=== PATIENT | female | born 1930 | race Caucasian/White ===

== ENCOUNTER 2017-01-22 08:37 | Inpatient (IN) | payer MEDICARE, BC ==
[2017-01-22] VITALS (19 sets, daily range): BP systolic 117–159; BP diastolic 51–104
[~2017-01-22] VITALS: Ht 152.4 cm; Wt 67.4 kg
[2017-01-22] MEDS ORDERED: PROCHLORPERAZINE 10 MG/2 ML VIAL. IV PRN (11:15)
[2017-01-22] MEDS ORDERED: VANCOMYCIN 1 GM in IV NORMAL SALINE 250ML 250 ML IV SCH (11:15)
[2017-01-22] MEDS ORDERED: HYDROCODONE/APAP 5/325MG TABLET. PO PRN (11:15)
[2017-01-22] MEDS ORDERED: CALCIUM CARBONATE 500 MG TAB.CHEW PO PRN (11:15)
[2017-01-22] MEDS ORDERED: ACETAMINOPHEN 325 MG TABLET. PO PRN (11:15)
[2017-01-22] MEDS ORDERED: BISACODYL 10 MG SUPP.RECT PR PRN (11:15)
[2017-01-22] MEDS ORDERED: LACTULOSE 20 GM/30 ML SOLUTION. PO PRN (11:15)
[2017-01-22] MEDS ORDERED: ONDANSETRON PF 4 MG/2 ML VIAL. IV PRN (11:15)
[2017-01-22] MEDS ORDERED: GUAIFENESIN DM 200MG/20MG 10 ML SYRUP. PO PRN (11:15)
[2017-01-22] MEDS ORDERED: MAGNESIUM HYDROXIDE 2,400 MG/30 ML ORAL.SUSP. PO PRN (11:15)
[2017-01-22] MEDS ORDERED: PROCHLORPERAZINE 25 MG SUPP.RECT. PR PRN (11:15)
[2017-01-22] MEDS ORDERED: IBUPROFEN 400 MG TABLET. PO PRN (11:15)
[2017-01-22] MEDS ORDERED: MAG HYDROX/ALUMINUM HYD/SIMETH 30 ML ORAL.SUSP PO PRN (11:15)
[2017-01-22] MEDS ORDERED: TRIA1CAP3 PO (11:19)
[2017-01-22] MEDS ORDERED: HYDR-2762 PO (11:19)
[2017-01-22] MEDS ORDERED: OMEP40CA5 PO (11:19)
[2017-01-22] MEDS ORDERED: SENN8.6T99 PO (11:19)
[2017-01-22] MEDS ORDERED: [UNRECOGNIZED DRUG - CODE] PO (11:19)
[2017-01-22] MEDS ORDERED: ALPR0.25 PO (11:19)
[2017-01-22] MEDS ORDERED: EZET10TA3 PO (11:19)
[2017-01-22] MEDS ORDERED: OXYC10TA32 PO (11:19)
[2017-01-22] MEDS ORDERED: CYCL10TA2 PO (11:19)
[2017-01-22] MEDS ORDERED: NIFE30TA9 PO (11:19)
[2017-01-22] MEDS ORDERED: METO50TA2 PO (11:19)
[2017-01-22] MEDS ORDERED: DOCU100T5 PO (11:19)
[2017-01-22] MEDS ORDERED: MULT-638 PO (11:19)
[2017-01-22] MEDS ORDERED: FERR-26 PO (11:19)
[2017-01-22] MEDS ORDERED: ATOR40TA59 PO (11:19)
[2017-01-22] MEDS: EZETIMIBE 10 MG TABLET PO SCH (12:00)
[2017-01-22] MEDS: MULTIVITAMIN with MINERAL TABLET. PO SCH (12:00)
[2017-01-22] MEDS: OXYCODONE ER 10 MG TAB.ER.12H. PO SCH ×2 (12:00→20:41)
[2017-01-22] MEDS: DOCUSATE SODIUM 100 MG CAPSULE PO SCH ×2 (12:00→20:39)
[2017-01-22] MEDS: NIFEDIPINE ER 30 MG TAB.ER.24H PO SCH (12:00)
[2017-01-22] MEDS: FERROUS SULFATE 325 MG TABLET PO SCH (12:00)
[2017-01-22] MEDS: ALPRAZOLAM 0.25 MG TABLET PO SCH ×2 (12:00→19:03)
[2017-01-22] MEDS: METOPROLOL TART IMMED RELEASE 50 MG TABLET PO SCH ×2 (12:00→20:40)
[2017-01-22] MEDS ORDERED: SENNOSIDES 8.6 MG TABLET PO PRN (12:00)
[2017-01-22] MEDS ORDERED: VANCOMYCIN 1.75 GM in IV NORMAL SALINE 500ML BAG 500 ML IV ONE (12:00)
[2017-01-22] MEDS ORDERED: DOCUSATE SODIUM 100 MG CAPSULE PO SCH (12:15)
[2017-01-22] MEDS: PANTOPRAZOLE 40 MG TABLET. PO SCH (12:30)
[2017-01-22] MEDS: TRIAMTERENE/HCTZ 37.5/25MG TABLET. PO SCH (12:30)
[2017-01-22] MEDS ORDERED: PIP/TAZO PER PHARMACY MC PRN (12:30)
[2017-01-22 12:39] LABS: BASO % 0 % (0-3); EOS % 1 % (0-3); HEMATOCRIT 32.1 % (36.0-47.0); HEMOGLOBIN 10.4 g/dL (12.0-15.5); LYMPH # 0.7 x10^3/uL (1.0-4.8); LYMPH % 5 % (24-48); MEAN CORPUSCULAR HEMOGLOBIN 31 pg (25-35); MEAN CORPUSCULAR HGB CONC 32 g/dL (31-37); MEAN CORPUSCULAR VOLUME 97 fL (79-100); MONO % 12 % (0-9); NEUT % 82 % (31-73); PLATELET COUNT 280 x10^3/uL (140-400); RED BLOOD COUNT 3.33 x10^6/uL (3.50-5.40); RED CELL DISTRIBUTION WIDTH 13.5 % (11.5-14.5); WHITE BLOOD COUNT 14.2 x10^3/uL (4.0-11.0)
[2017-01-22 12:40] LABS: INR 1.2 (0.8-1.1); PROTHROMBIN TIME PATIENT 14.3 SEC (11.7-14.0)
--- NOTE | 2017-01-22 12:44 | PDOC1 ---
History and Physical Date of Admission Date of Admission DATE: 01/22/17 TIME: 12:34 Identification/Chief Complaint Chief Complaint transferred from [facility] of possible empyema on CXR today Source Source: Caregiver, Chart review, Patient History of Present Illness History of Present Illness 86 y.o very pleasant female, no known lung dse, never smoker, not on home O2, transferred from [facility] of possible empyema onCXR today there. She was admitted at [place] on 01.19 for respi sxs, found to have pneumonia, atelectasis, small pleural effusions etc there, Extensive chart reviewed from [place], has CKD follows with dr. German, also echo done there showed: EF 60-65%, impaired relaxation, MIld AR, , TR, [place] hTN PA 39. VW scan showed low prob PE US legs were neg for DVT. Hiatal hernia and left renal cyst on CT - incidental Labs today 3.3at [place] NA 133, K 5.2, Bicarb 24, gap 10, crEA 1,7, gfr 28, LACTATE 0.6 lIPID PAnel ok coags ok FLu a and B neg Strep penumo antigen neg BC prelim neg growth x 3 days IN terms of sxs: she denies cough, fever, it is tHE RIGHT SIDED BACK PAIN that is bothersome to her, the site of The PNA Past Medical History Cardiovascular: HTN, Hyperlipidemia GI: GERD Heme/Onc: Other (DVT) Past Surgical History Past Surgical History: Cholecystectomy, Total knee replacement, Hysterectomy Family History Family History: Coronary Artery Disease Social History Smoke: No ALCOHOL: none Drugs: None Current Problem List Problem List Problems Medical Problems: (1) CAP (community acquired pneumonia) Status: Acute Problems: Current Medications Current Medications Current Medications Ondansetron HCl (Zofran) 4 mg PRN Q6HRS PRN IV NAUSEA/VOMITING; Start 01/22/17 at 11:15 Prochlorperazine Edisylate (Compazine) 10 mg PRN Q6HRS PRN IV NAUSEA/VOMITING; Start 01/22/17 at 11:15 Prochlorperazine (Compazine) 25 mg PRN Q12HR PRN WA NAUSEA/VOMITING; Start 01/22 at 11:15 Al Hydrox/Mg Hydrox/Simethicone (Mylanta Plus Xs) 30 ml PRN Q3HRS PRN PO HEARTBURN / GAS; Start 01/22/17 at 11:15 Calcium Carbonate/ Glycine (Tums) 500 mg PRN Q3HRS PRN PO UPSET STOMACH; Start 01/22/17 at 11:15 Morphine Sulfate 1 mg PRN Q2HR PRN IV PAIN; Start 01/22/17 at 11:15 Acetaminophen/ Hydrocodone Bitart (Lortab 5/325) 1 tab PRN Q4HRS PRN PO MILD PAIN; Start 01/22/17 at 11:15 Acetaminophen (Tylenol) 650 mg PRN Q6HRS PRN PO MILD PAIN / TEMP; Start at 11:15 Ibuprofen (Motrin) 400 mg PRN Q6HRS PRN PO MILD PAIN; Start 01/22/17 at 11:15 Docusate Sodium (Colace) 100 mg BID PO ; Start 01/22/17 at 12:00 Magnesium Hydroxide (Milk Of Magnesia) 2,400 mg PRN Q12HR PRN PO CONSTIPATION; Start 01/22/17 at 11:15 Lactulose 20 gm PRN Q12HR PRN PO CONSTIPATION; Start 01/22/17 at 11:15 Bisacodyl (Dulcolax Supp) 10 mg PRN DAILY PRN [place] CONSTIPATION; Start 01/22/17 at 11:15 Enoxaparin Sodium 40 mg 40 mg Q24H SQ ; Start 01/22/17 at 16:00 Vancomycin HCl 1 gm/Sodium Chloride 250 ml @ 250 mls/hr Q24H IV ; Start at 11:15; Status UNV Piperacillin Sod/ Tazobactam Sod/ Sodium Chloride (Zosyn/Iv Sodium Chloride 0.9 % 50ml) 50 ml @ 100 mls/hr Q6HRS IV ; Start 01/22/17 at 12:00 Guaifenesin (Robitussin Dm) 10 ml PRN Q6HRS PRN PO COUGH; Start 01/22/17 at 11: 15 Vancomycin HCl 1 each 1 each PRN DAILY PRN MC SEE COMMENTS; Start 01/22/17 at 11 :30 Vancomycin HCl/ Sodium Chloride (Iv Sodium Chloride 0.9% 500ml Bag) 500 ml @ 250 mls/hr 1X ONCE IV ; Start 01/22/17 at 12:00; Stop 01/22/17 at 13:59; Status Cancel Alprazolam (Xanax) 0.25 mg BID PO ; Start 01/22/17 at 12:00 Atorvastatin Calcium (Lipitor) 40 mg HS PO ; Start 01/22/17 at 21:00 Cyclobenzaprine HCl (Flexeril) 10 mg TID PO ; Start 01/22/17 at 14:00 EZETIMIBE (Zetia) 10 mg DAILY PO ; Start 01/22/17 at 12:00 Ferrous Sulfate (Feosol) 325 mg DAILYWBKFT PO ; Start 01/22/17 at 12:00 Acetaminophen/ Hydrocodone Bitart (Lortab 7.5/325) 1 tab PRN Q4HRS PRN PO PAIN ; Start 01/22/17 at 12:00 Metoprolol Tartrate (Lopressor) 50 mg BID PO ; Start 01/22/17 at 12:00 Multivitamins/ Calcium (Thera M Plus) 1 tab DAILY PO ; Start 01/22/17 at 12:00 Oxycodone HCl (Oxycontin) 10 mg BID PO ; Start 01/22/17 at 12:00 Sennosides (Senna) 8.6 mg PRN DAILY PRN PO CONSTIPATION; Start 01/22/17 at 12:00 Docusate Sodium (Colace) 100 mg DAILY PO ; Start 01/22/17 at 12:15; Status Cancel Losartan Potassium (Cozaar) 50 mg DAILY PO ; Start 01/23/17 at 09:00 Nifedipine (Procardia Xl) 30 mg DAILY PO ; Start 01/22/17 at 12:00 Pantoprazole Sodium (Protonix) 40 mg DAILYAC PO ; Start 01/22/17 at 12:30 Triamterene/HCTZ (Maxzide 37.5/ 25mg) 1 tab DAILY PO ; Start 01/22/17 at 12:30 Piperacillin Sod/ Tazobactam Sod (Zosyn Per Pharmacy) 1 each PRN DAILY PRN MC SEE COMMENTS; Start 01/22/17 at 12:30; Stop 01/22/17 at 12:30; Status DC Active Scripts Active Reported Triamterene-Hctz 37.5-25 Mg Cp (Triamterene/Hydrochlorothiazid) 1 Each Capsule 1 Cap PO DAILY Senokot (Sennosides) 8.6 Mg Tablet 8.6 Mg PO PRN DAILY PRN Oxycontin (Oxycodone HCl) 10 Mg Tab.er.12h 10 Mg PO BID Omeprazole 40 Mg Capsule.dr 40 Mg PO DAILY Nifedipine Er (Nifedipine) 30 Mg Tablet.er 30 Mg PO DAILY Thera M Plus Tablet (Multivits,Ca,Minerals/Iron/FA) 1 Each Tablet 1 Each PO DAILY Metoprolol Tartrate 50 Mg Tablet 50 Mg PO BID Hydrocodone-Apap 7.5-325 (Hydrocodone Bit/Acetaminophen) 1 Each Tablet 1 Tab PO PRN Q4HRS PRN Ferrous Sulfate 325 Mg Tablet 1 Tab PO DAILY Zetia (Ezetimibe) 10 Mg Tablet 10 Mg PO DAILY Eprosartan Mesylate 600 Mg Tablet 600 Mg PO DAILY Docusate Sodium 100 Mg Tablet 100 Mg PO DAILY Cyclobenzaprine Hcl 10 Mg Tablet 10 Mg PO TID Atorvastatin Calcium 40 Mg Tablet 40 Mg PO HS Xanax (Alprazolam) 0.25 Mg Tablet 1 Tab PO BID Allergies Allergies: Coded Allergies: Tetracyclines (Verified Allergy, Intermediate, Unknown, 01/22/17) ROS General: YES: Fatigue PSYCHOLOGICAL ROS: No: Anxiety, Behavioral Disorder, Concentration difficultie , Decreased libido, Depression, Disorientation, Hallucinations, Hostility, Irritablity, Memory difficulties, Mood Swings, Obsessive thoughts, Other, Physical abuse, Sexual abuse, Sleep disturbances, Suicidal ideation Eyes: No Blurry vision, No Decreased vision, No Double vision, No Dry eyes, No Excessive tearing, No Eye Pain, No Itchy Eyes, No Loss of vision, No Other, No Photophobia, No Scotomata, No Uses contacts, No Uses glasses HEENT: No: Epistaxis, Heacaches, Hearing change, Nasal congestion, Nasal discharge, Oral lesions, Other, Sinus pain, Sneezing, Snoring, Sore Throat, Tinnitus, Vertigo, Visual Changes, Vocal changes ALLERGY AND IMMUNOLOGY: No: Hives, Insect Bite Sensitivity, Itchy/Watery Eyes, Nasal Congestion, Other, Post Nasal Drip, Seasonal Allergies Hematological and Lymphatic: No: Bleeding Problems, Blood Clots, Blood Transfusions, Brusing, Night Sweats, Other, Pallor, Swollen Lymph Nodes ENDOCRINE: No: Breast Changes, Galactorrhea, Hair Pattern Changes, Hot Flashes , Malaise/lethargy, Mood Swings, Other, Palpitations, Polydipsia/polyuria, Skin Changes, Temperature Intolerance, Unexpected Weight Changes Breast: No New/Changing Breast Lumps, No Nipple changes, No Nipple discharge, No Other Respiratory: YES: Cough Cardiovascular: yes Other (back pain, R side), No Chest Pain, No Edema, No Lt Headedness, No Orthopnea, No Palpitations, No Paroxysmal Noc. Dyspnea Gastrointestinal: No Abdominal Pain, No Constipation, No Diarrhea, No Hematochezia, No Melena, No Nausea, No Other, No Vomiting Genitourinary: No , No , No , No , No , No , No , No Discharge, No Dysuria, No Flank Pain, No Frequency, No Hematuria, No Incontinence, No Other, No Pain, No Retention, No Urgency Musculoskeletal: Yes Other (back pain, R side) Neurological: No Behavorial Changes, No Bowel/Bladder ControlChng, No Confusion , No Dizziness, No Gait Disturbance, No Headaches, No Impaired Coord/balance, No Memory Loss, No Numbness/Tingling, No Other, No Seizures, No Speech Problems , No Tremors, No Visual Changes, No Weakness Skin: No Acne, No Dry Skin, No Eczema, No Hair Changes, No Lumps, No Mole Changes, No Mottling, No Nail Changes, No Other, No Pruritus, No Rash, No Skin Lesion Changes Physical Exam General: Alert HEENT: Atraumatic, PERRLA Lungs: Normal air movement, Other (dec BS R side) Cardiovascular: S1, S2 Breasts: Normal Abdomen: Normal bowel sounds, Soft, No tenderness, No hepatosplenomegaly, No masses Rectal Exam: not examined PELVIC: Nml ext genitalia Extremities: No clubbing, No cyanosis, No edema, Normal pulses, No tenderness/ swelling Skin: No rashes, No breakdown, No significant lesion Neuro: Normal gait, Normal speech, Strength at 5/5 X4 ext, Normal tone, Sensation intact, Cranial nerves 3-12 NL, Reflexes 2+ Psych/Mental Status: Mental status NL, Mood NL Vitals Vitals Vital Signs Date Time Temp Pulse Resp B/P Pulse Ox O2 Delivery O2 Flow Rate FiO2 01/22/17 10:59 Nasal Cannula 2.0 01/22/17 10:45 96.3 81 18 128/51 94 96.3 VTE Prophylaxis Ordered VTE Prophylaxis Devices: Yes VTE Pharmacological Prophylaxi: Yes Assessment/Plan Assessment/Plan 1. RUL PNA< with possible mention of empyema, on 01/22/ xray 2. Atelectasis, trace pleural effusions bilateral 3. 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 YOAN on CKD6. 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 GERD, hx DVT - venous doppler are neg, vq low prob PE 7. Dyslipidemia 8. HTN - stable 9. Incidental left renal cyst 10,. Hiatal hernia 11.Coronary calcifications 12. 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
[2017-01-22 12:48] LABS: ALBUMIN 2.2 g/dL (3.4-5.0); CREATININE 1.7 mg/dL (0.6-1.0); GFR 28.4; MAGNESIUM 1.6 mg/dL (1.8-2.4); PHOSPHORUS 3.7 mg/dL (2.6-4.7); POTASSIUM 5.6 mmol/L (3.5-5.1)
[2017-01-22] MEDS: PIPERACILLIN/TAZOBACTAM 2.25 GM in IV NORMAL SALINE 50ML 50 ML IV SCH ×3 (13:06→23:57)
[2017-01-22] MEDS: HEPARIN PF for SUB-Q USE 5,000 UNIT/0.5 ML VIAL. SQ SCH ×2 (14:00→20:50)
[2017-01-22] MEDS: CYCLOBENZAPRINE 10 MG TABLET. PO SCH ×2 (14:00→20:40)
[2017-01-22] MEDS: MORPHINE SULFATE 2 MG/ML DISP.SYRIN. IV PRN ×2 (14:39→18:38)
[2017-01-22] MEDS: VANCOMYCIN PER PHARMACY MC PRN (14:47)
--- NOTE | 2017-01-22 15:54 | PDOC ---
PULMONARY PROGRESS NOTES Vitals Vital Signs Date Time Temp Pulse Resp B/P Pulse Ox O2 Delivery O2 Flow Rate FiO2 01/22/17 15:25 Nasal Cannula 2.0 01/22/17 14:42 96.8 87 18 134/59 95 96.8 Cardiovascular: S1, S2 Labs Laboratory Tests Test 01/22/17 12:05 White Blood Count 14.2x10^3/uL (4.0-11.0) Red Blood Count 3.33x10^6/uL (3.50-5.40) Hemoglobin 10.4g/dL (12.0-15.5) Hematocrit 32.1% (36.0-47.0) Mean Corpuscular Volume 97fL (79-100) Mean Corpuscular Hemoglobin 31pg (25-35) Mean Corpuscular Hemoglobin Concent 32g/dL (31-37) Red Cell Distribution Width 13.5% (11.5-14.5) Platelet Count 280x10^3/uL (140-400) Neutrophils (%) (Auto) 82% (31-73) Lymphocytes (%) (Auto) 5% (24-48) Monocytes (%) (Auto) 12% (0-9) Eosinophils (%) (Auto) 1% (0-3) Basophils (%) (Auto) 0% (0-3) Neutrophils # (Auto) 11.7x10^3uL (1.8-7.7) Lymphocytes # (Auto) 0.7x10^3/uL (1.0-4.8) Monocytes # (Auto) 1.7x10^3/uL (0.0-1.1) Eosinophils # (Auto) 0.1x10^3/uL (0.0-0.7) Basophils # (Auto) 0.0x10^3/uL (0.0-0.2) Prothrombin Time 14.3SEC (11.7-14.0) Prothromb Time International Ratio 1.2 (0.8-1.1) Sodium Level 133mmol/L (136-145) Potassium Level 5.6mmol/L (3.5-5.1) Chloride Level 97mmol/L (98-107) Carbon Dioxide Level 26mmol/L (21-32) Anion Gap 10 (6-14) Blood Urea Nitrogen 25mg/dL (7-20) Creatinine 1.7mg/dL (0.6-1.0) Estimated GFR (Cockcroft-Gault) 28.4 Glucose Level 119mg/dL (70-99) Calcium Level 9.0mg/dL (8.5-10.1) Phosphorus Level 3.7mg/dL (2.6-4.7) Magnesium Level 1.6mg/dL (1.8-2.4) Albumin 2.2g/dL (3.4-5.0) Laboratory Tests Test 01/22/17 12:05 White Blood Count 14.2x10^3/uL (4.0-11.0) Red Blood Count 3.33x10^6/uL (3.50-5.40) Hemoglobin 10.4g/dL (12.0-15.5) Hematocrit 32.1% (36.0-47.0) Mean Corpuscular Volume 97fL (79-100) Mean Corpuscular Hemoglobin 31pg (25-35) Mean Corpuscular Hemoglobin Concent 32g/dL (31-37) Red Cell Distribution Width 13.5% (11.5-14.5) Platelet Count 280x10^3/uL (140-400) Neutrophils (%) (Auto) 82% (31-73) Lymphocytes (%) (Auto) 5% (24-48) Monocytes (%) (Auto) 12% (0-9) Eosinophils (%) (Auto) 1% (0-3) Basophils (%) (Auto) 0% (0-3) Neutrophils # (Auto) 11.7x10^3uL (1.8-7.7) Lymphocytes # (Auto) 0.7x10^3/uL (1.0-4.8) Monocytes # (Auto) 1.7x10^3/uL (0.0-1.1) Eosinophils # (Auto) 0.1x10^3/uL (0.0-0.7) Basophils # (Auto) 0.0x10^3/uL (0.0-0.2) Prothrombin Time 14.3SEC (11.7-14.0) Prothromb Time International Ratio 1.2 (0.8-1.1) Sodium Level 133mmol/L (136-145) Potassium Level 5.6mmol/L (3.5-5.1) Chloride Level 97mmol/L (98-107) Carbon Dioxide Level 26mmol/L (21-32) Anion Gap 10 (6-14) Blood Urea Nitrogen 25mg/dL (7-20) Creatinine 1.7mg/dL (0.6-1.0) Estimated GFR (Cockcroft-Gault) 28.4 Glucose Level 119mg/dL (70-99) Calcium Level 9.0mg/dL (8.5-10.1) Phosphorus Level 3.7mg/dL (2.6-4.7) Magnesium Level 1.6mg/dL (1.8-2.4) Albumin 2.2g/dL (3.4-5.0) Medications Active Scripts Medications Dose Route/Sig Days Date Category Triamterene-Hctz 37.5-25 Mg Cp (Triamterene/Hydrochlorothiazid) 1 Each Capsule 1 Cap PO DAILY 01/22/17 Reported Senokot (Sennosides) 8.6 Mg Tablet 8.6 Mg PO PRN DAILY PRN 01/22/17 Reported Oxycontin (Oxycodone HCl) 10 Mg Tab.er.12h 10 Mg PO BID 01/22/17 Reported Omeprazole 40 Mg Capsule.dr 40 Mg PO DAILY 01/22/17 Reported Nifedipine Er (Nifedipine) 30 Mg Tablet.er 30 Mg PO DAILY 01/22/17 Reported Thera M Plus Tablet (Multivits,Ca,Minerals/Iron/FA) 1 Each Tablet 1 Each PO DAILY 01/22/17 Reported Metoprolol Tartrate 50 Mg Tablet 50 Mg PO BID 01/22/17 Reported Hydrocodone-Apap 7.5-325 (Hydrocodone Bit/Acetaminophen) 1 Each Tablet 1 Tab PO PRN Q4HRS PRN 01/22/17 Reported Ferrous Sulfate 325 Mg Tablet 1 Tab PO DAILY 01/22/17 Reported Zetia (Ezetimibe) 10 Mg Tablet 10 Mg PO DAILY 01/22/17 Reported Eprosartan Mesylate 600 Mg Tablet 600 Mg PO DAILY 01/22/17 Reported Docusate Sodium 100 Mg Tablet 100 Mg PO DAILY 01/22/17 Reported Cyclobenzaprine Hcl 10 Mg Tablet 10 Mg PO TID 01/22/17 Reported Atorvastatin Calcium 40 Mg Tablet 40 Mg PO HS 01/22/17 Reported Xanax (Alprazolam) 0.25 Mg Tablet 1 Tab PO BID 01/22/17 Reported Impression . PNEUMONIA WITH POSSIBLE EMPYEMA WILL PROCEED WITH CHEST TUBE DRAINAGE THANKS CHEMA QUIROZ MD Jan 22, 2017 15:54
[2017-01-22] MEDS ORDERED: ENOXAPARIN 40 MG/0.4 ML DISP.SYRIN. SQ SCH (16:00)
[2017-01-22] MEDS ORDERED: LIDOCAINE 1% / SOD BICARB 8.4% 20 ML VIAL. IJ ONE ×2 (16:37→18:00)
[2017-01-22] MEDS ORDERED: FENTANYL PF 100 MCG/2 ML VIAL. ONE (16:37)
[2017-01-22] MEDS ORDERED: MIDAZOLAM HCL 2 MG/2 ML VIAL. ONE (16:38)
--- NOTE | 2017-01-22 17:23 | PDOC ---
MODERATE SEDATION ASSESSMENT RISKS/ALTERNATIVES Risks/Alternatives Risks and alternatives of this type of sedation and procedure discussed with: RISK/ALTERNATIVES: Patient H & P ON CHART H & P H & P on chart and reviewed for co-morbid conditions and appropriate labs. H&P ON CHART: Yes STATUS PREG STATUS ASSESSED: Yes MEDS/ALLERGIES REVIEWED Meds/Allergies Reviewed Medications and Allergies including time and route of recently administered narcotics and sedatives. MEDS/ALLERGIES REVIEWED: Yes ASA RATING ASA RATING: II AIRWAY ASSESSMENT Airway Assessment Airway patency, oral function limitations, presence of caps, crowns, dentures, partials, and ability to extend neck assessed. AIRWAY ASSESSMENT: Yes MALLAMPATI SCORE MALLAMPATI SCORE: II PRE-SEDATION ASSESSMENT PRE-SEDATION ASSESSMENT: Yes FRANKI RILEY MD Jan 22, 2017 17:23
--- NOTE | 2017-01-22 17:24 | PDOC ---
BRIEF OPERATIVE NOTE Pre-Op Diagnosis Empyema Post-Op Diagnosis same Procedure Performed CT Chest tube and tpa fibrinolysis Surgeon Susana Anesthesia Type: Conscious Sedation Specimens Obtained 20cc pink serous fluid Findings 14F chest tube Complications No immediate FRANKI RILEY MD Jan 22, 2017 17:24
[2017-01-22] MEDS ORDERED: NORMAL SALINE IV ONE (18:00)
[2017-01-22] MEDS ORDERED: ALTEPLASE IV ONE (18:00)
[2017-01-22] MEDS ORDERED: FENTANYL PF 100 MCG/2 ML VIAL. IV ONE (18:00)
[2017-01-22] MEDS ORDERED: MIDAZOLAM HCL 2 MG/2 ML VIAL. IV ONE (18:00)
[2017-01-22] MEDS: HYDROCODONE/APAP 7.5/325MG TABLET. PO PRN (18:38)
--- NOTE | 2017-01-22 19:53 | EKG ---
[facility] [address] [place] [address] Test Date: 2017-01-22 Test Time: 19:47:44 Pat Name: HIRAL PATRICK Department: Room: [facility] Gender: F Sack Sorter: THAI : 1930 Requested By: SIRIA LI Order Number: [id number] Reading MD: Rodrigo Patterson Measurements Intervals [place] Rate: 150 P: NM: QRS: 31 QRSD: 98 T: -4 QT: 290 QTc: 460 Interpretive Statements ATRIAL FIBRILLATION. INCOMPLETE RIGHT BUNDLE BRANCH BLOCK NONSPECIFIC ST-T WAVE CHANGES. RI6.01 Electronically Signed On 01-25-2017 14:01:01 ASTRONOMY DEPARTMENT CHAIR by Rodrigo Patterson
[2017-01-22] MEDS ORDERED: DILTIAZEM 125 MG in IV DEXTROSE 5% 100 ML IV PRN (20:15)
[2017-01-22] MEDS ORDERED: MORPHINE SULFATE 2 MG/ML DISP.SYRIN. IV ONE (20:15)
[2017-01-22] MEDS ORDERED: DILTIAZEM IV PUSH 25 MG/5 ML VIAL. IVP ONE (20:15)
[2017-01-22] MEDS: ATORVASTATIN CALCIUM 40 MG TABLET. PO SCH (20:39)
[2017-01-23 03:00] VITALS: BP 124/62
[2017-01-23] MEDS: PIPERACILLIN/TAZOBACTAM 2.25 GM in IV NORMAL SALINE 50ML 50 ML IV SCH ×3 (06:12→17:20)
[2017-01-23] MEDS: HEPARIN PF for SUB-Q USE 5,000 UNIT/0.5 ML VIAL. SQ SCH ×3 (06:15→22:09)
[2017-01-23 07:00] VITALS: BP 124/62
[2017-01-23] MEDS: ALPRAZOLAM 0.25 MG TABLET PO SCH ×2 (09:00→21:26)
[2017-01-23] MEDS: TRIAMTERENE/HCTZ 37.5/25MG TABLET. PO SCH (09:03)
[2017-01-23] MEDS: DOCUSATE SODIUM 100 MG CAPSULE PO SCH ×2 (09:03→21:26)
[2017-01-23] MEDS: PANTOPRAZOLE 40 MG TABLET. PO SCH (09:04)
[2017-01-23] MEDS: LOSARTAN POTASSIUM 50 MG TABLET. PO SCH (09:04)
[2017-01-23] MEDS: FERROUS SULFATE 325 MG TABLET PO SCH (09:04)
[2017-01-23] MEDS: METOPROLOL TART IMMED RELEASE 50 MG TABLET PO SCH ×2 (09:04→21:26)
[2017-01-23] MEDS: CYCLOBENZAPRINE 10 MG TABLET. PO SCH ×3 (09:05→21:26)
[2017-01-23] MEDS: EZETIMIBE 10 MG TABLET PO SCH (09:05)
[2017-01-23] MEDS: OXYCODONE ER 10 MG TAB.ER.12H. PO SCH ×2 (09:05→21:27)
[2017-01-23] MEDS: NIFEDIPINE ER 30 MG TAB.ER.24H PO SCH (09:05)
[2017-01-23] MEDS: MULTIVITAMIN with MINERAL TABLET. PO SCH (09:05)
[2017-01-23] MEDS: MORPHINE SULFATE 2 MG/ML DISP.SYRIN. IV PRN ×2 (09:41→17:23)
--- NOTE | 2017-01-23 10:14 | PDOC2 ---
CARDIAC CONSULT DATE OF CONSULT Date of Consult DATE: 01/23/17 TIME: 09:45 REASON FOR CONSULT Reason for Consult: atrial fibrillation HISTORY OF PRESENT ILLNESS HISTORY OF PRESENT ILLNESS HISTORY OF PRESENT ILLNESS: The patient is a pleasant 86-year-old female with no known history of coronary artery disease who was initially admitted to [facility] with complaints of right-sided flank pain and back pain, which was worse with inspiration. She complained of associated dyspnea. She also complained of a substernal chest discomfort that she described as a pleuritic type pain. [facility] was [facility] and found to have normal LV function by echo with normal wall motion. She was treated for pneumonia but ultimately transferred to [facility] for pulmonary evaluation for possible empyema. She denies any previous history of myocardial infarction, congestive heart failure, or stroke. She has an inferior vena cava filter due to previous deep venous thrombosis. VQ was low probability for PE. She denies any congestive symptoms but does complain of intermittent lower extremity edema. She denies any palpitations, lightheadedness or syncope. She has a history of some recent falls at home including 2 in the past couple of months. Both were apparently mechanical falls but each time she has had to call for help to get back up. Yesterday she developed atrial fibrillation with RVR up to 180s so consult was called. She is currently in sinus rhythm. PAST MEDICAL HISTORY Past Medical History PAST MEDICAL HISTORY: 1. Essential hypertension. 2. History of deep venous thrombosis. 3. Inferior vena cava filter. 4. Hypercholesterolemia. 5. Gastroesophageal reflux disease. PAST SURGICAL HISTORY Past Surgical History PAST SURGICAL HISTORY: Status post inferior vena cava filter. FAMILY HISTORY Family History FAMILY HISTORY: She denies any family history of premature coronary artery disease. SOCIAL HISTORY Social History SOCIAL HISTORY: The patient lives at home in [place] in her own home. She lives alone, but has family and many friends nearby. She is a lifelong nonsmoker. She does not drink alcohol on a regular basis. CURRENT MEDICATIONS CURRENT MEDICATIONS Current Medications Medications (Trade) Dose Ordered Sig/Kavitha Route PRN Reason Start Time Stop Time Status Last Admin Dose Admin Morphine Sulfate 1 mg PRN Q2HR PRN IV PAIN 01/22/17 11:15 01/23/17 09:41 Docusate Sodium 100 mg 100 mg BID PO 01/22/17 12:00 01/23/17 09:03 Piperacillin Sod/ Tazobactam Sod/ Sodium Chloride (Zosyn/Iv Sodium Chloride 0.9% 50ml) 50 ml @ 100 mls/hr Q6HRS IV 01/22/17 12:00 01/23/17 06:12 Vancomycin HCl (Vanco Per Pharmacy) 1 each PRN DAILY PRN MC SEE COMMENTS 01/22/17 11:30 01/22/17 14:47 Alprazolam (Xanax) 0.25 mg BID PO 01/22/17 12:00 01/22/17 19:03 Atorvastatin Calcium (Lipitor) 40 mg HS PO 01/22/17 21:00 01/22/17 20:39 Cyclobenzaprine HCl (Flexeril) 10 mg TID PO 01/22/17 14:00 01/23/17 09:05 EZETIMIBE (Zetia) 10 mg DAILY PO 01/22/17 12:00 01/23/17 09:05 Ferrous Sulfate (Feosol) 325 mg DAILYWBKFT PO 01/22/17 12:00 01/23/17 09:04 Acetaminophen/ Hydrocodone Bitart (Lortab 7.5/325) 1 tab PRN Q4HRS PRN PO SEVERE PAIN 01/22/17 12:00 01/22/17 18:38 Metoprolol Tartrate (Lopressor) 50 mg BID PO 01/22/17 12:00 01/23/17 09:04 Multivitamins/ Calcium (Thera M Plus) 1 tab DAILY PO 01/22/17 12:00 01/23/17 09:05 Oxycodone HCl (Oxycontin) 10 mg BID PO 01/22/17 12:00 01/23/17 09:05 Losartan Potassium (Cozaar) 50 mg DAILY PO 01/23/17 09:00 01/23/17 09:04 Nifedipine (Procardia Xl) 30 mg DAILY PO 01/22/17 12:00 01/23/17 09:05 Pantoprazole Sodium (Protonix) 40 mg DAILYAC PO 01/22/17 12:30 01/23/17 09:04 Triamterene/HCTZ (Maxzide 37.5/ 25mg) 1 tab DAILY PO 01/22/17 12:30 01/23/17 09:03 Heparin Sodium (Porcine) 5000 unit 5,000 unit Q8HRS SQ 01/22/17 14:00 01/23/17 06:15 Alteplase, Recombinant/ Sodium Chloride (Cathflo/Iv Sodium Chloride 0.9% 50ml) 50 ml @ 30 mls/hr 1X ONCE IV 01/22/17 18:00 01/22/17 19:39 DC 01/22/17 18:01 Lidocaine/Sodium Bicarbonate (Buffered Lidocaine 1%) 3 ml 1X ONCE IJ 01/22/17 18:00 01/22/17 18:01 DC 01/22/17 17:54 Midazolam HCl (Versed) 0.5 mg 1X ONCE IV 01/22/17 18:00 01/22/17 18:01 DC 01/22/17 17:54 Fentanyl Citrate (Fentanyl 2ml Vial) 100 mcg 1X ONCE IV 01/22/17 18:00 01/22/17 18:01 DC 01/22/17 17:55 ALLERGIES ALLERGIES: Coded Allergies: Tetracyclines (Verified Allergy, Intermediate, 01/23/17) ROS Review of System as per HPI or negative PHYSICAL EXAM General: Alert, Oriented X3, Cooperative, mild distress Lungs: Other (bibasilar crackles, right pleural CT in place) Heart: Regular rate, Normal S1, Normal S2, Other (no gallops) Abdomen: Normal bowel sounds, Soft Extremities: No cyanosis, Normal pulses, Other (mild bilateral lower extremity edema) Neuro: Normal speech Psych/Mental Status: Mental status NL, Mood NL VITALS VITALS Vital Signs Date Time Temp Pulse Resp B/P Pulse Ox O2 Delivery O2 Flow Rate FiO2 01/23/17 09:41 96 Nasal Cannula 2.0 01/23/17 09:05 94 124/62 01/23/17 07:00 97.8 20 97.8 LABS Lab: Laboratory Tests Test 01/22/17 12:05 01/22/17 17:15 White Blood Count 14.2x10^3/uL (4.0-11.0) Red Blood Count 3.33x10^6/uL (3.50-5.40) Hemoglobin 10.4g/dL (12.0-15.5) Hematocrit 32.1% (36.0-47.0) Mean Corpuscular Volume 97fL (79-100) Mean Corpuscular Hemoglobin 31pg (25-35) Mean Corpuscular Hemoglobin Concent 32g/dL (31-37) Red Cell Distribution Width 13.5% (11.5-14.5) Platelet Count 280x10^3/uL (140-400) Neutrophils (%) (Auto) 82% (31-73) Lymphocytes (%) (Auto) 5% (24-48) Monocytes (%) (Auto) 12% (0-9) Eosinophils (%) (Auto) 1% (0-3) Basophils (%) (Auto) 0% (0-3) Neutrophils # (Auto) 11.7x10^3uL (1.8-7.7) Lymphocytes # (Auto) 0.7x10^3/uL (1.0-4.8) Monocytes # (Auto) 1.7x10^3/uL (0.0-1.1) Eosinophils # (Auto) 0.1x10^3/uL (0.0-0.7) Basophils # (Auto) 0.0x10^3/uL (0.0-0.2) Prothrombin Time 14.3SEC (11.7-14.0) Prothromb Time International Ratio 1.2 (0.8-1.1) Sodium Level 133mmol/L (136-145) Potassium Level 5.6mmol/L (3.5-5.1) Chloride Level 97mmol/L (98-107) Carbon Dioxide Level 26mmol/L (21-32) Anion Gap 10 (6-14) Blood Urea Nitrogen 25mg/dL (7-20) Creatinine 1.7mg/dL (0.6-1.0) Estimated GFR (Cockcroft-Gault) 28.4 Glucose Level 119mg/dL (70-99) Calcium Level 9.0mg/dL (8.5-10.1) Phosphorus Level 3.7mg/dL (2.6-4.7) Magnesium Level 1.6mg/dL (1.8-2.4) Albumin 2.2g/dL (3.4-5.0) Body Fluid pH 6.8 ECHOCARDIOGRAM ECHOCARDIOGRAM 01/20/17 Left ventricle systolic function is normal. The Ejection Fraction is 60 to 65 %. There is evidence of impaired relaxation The left atrium size is normal. The aortic valve is mildly to moderately sclerotic with mild restriction There is mild aortic regurgitation. There is mild aortic stenosis with a valve area of 1.85 cm There is mild mitral regurgitation. There is mild tricuspid regurgitation. There is mild pulmonary hypertension. The PA pressure was estimated at 39 mmHg. The IVC is normal in size and collapses >50% with inspiration. ASSESSMENT/PLAN ASSESSMENT/PLAN 1. atrial fibrillation with RVR - now sinus rhythm. Continue metoprolol. If reoccurrs, suggest change nifedipine to cardizem. Cha2ds 2 vasc >3 however with recent falls would not be ideal candidate for anticoagulation. Suggest aspirin for stroke prophylaxis. 2. pneumonia / empyema - CT, mgmt per Pulmonary 3. chest pain likely secondary to #2. plans for OP MPI at [facility]. 4. hypertension - controlled. 5. CKD - follows with Dr German. 6. hyperkalemia - suggest change maxzide to HCTZ Problems: AFRICA AKINS APRN Jan 23, 2017 10:13
[2017-01-23 10:33] LABS: CALCIUM 8.7 mg/dL (8.5-10.1); CREATININE 1.6 mg/dL (0.6-1.0); GFR 30.5; POTASSIUM 4.7 mmol/L (3.5-5.1)
[2017-01-23] MEDS: VANCOMYCIN PER PHARMACY MC PRN (10:59)
[2017-01-23 11:00] VITALS: BP 116/53
[2017-01-23] MEDS: HYDROCODONE/APAP 7.5/325MG TABLET. PO PRN (11:38)
--- NOTE | 2017-01-23 12:47 | PDOC ---
PROGRESS NOTES Chief Complaint Chief Complaint 1. RUL PNA, empyema 2. Atelectasis, trace pleural effusions bilateral 3. 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 YOAN on CKD6. 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 GERD, hx DVT - venous doppler are neg, vq low prob PE 7. Dyslipidemia 8. HTN - stable 9. Incidental left renal cyst 10. 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 Reports pain at the site of the chest tube insertion. Pain control discussed with patient and RN. Patient continues to experience generalized weakness and fatigue. Cough persists. Elevated WBC of 14.2. Pt had episode last night of Afib with rates between 150-200, effectively treated with Cardizem. Now pt is in sinus rhythm and has rate of 77. Vitals Vitals Vital Signs Date Time Temp Pulse Resp B/P Pulse Ox O2 Delivery O2 Flow Rate FiO2 01/23/17 11:38 96 Nasal Cannula 2.0 01/23/17 11:00 97.7 77 24 116/53 97.7 Physical Exam General: Alert, Cooperative, mild distress Heart: Regular rate, Normal S1, Normal S2 Lungs: Other (chest tube in place; focal tenderness at the site of insertion) Abdomen: Normal bowel sounds, Soft Extremities: No cyanosis, Normal pulses, Other (mild bilateral lower extremity edema) Skin: No rashes, No breakdown, No significant lesion Labs LABS Laboratory Tests Test 01/22/17 17:15 01/23/17 10:10 Body Fluid pH 6.8 Sodium Level 136mmol/L (136-145) Potassium Level 4.7mmol/L (3.5-5.1) Chloride Level 101mmol/L (98-107) Carbon Dioxide Level 24mmol/L (21-32) Anion Gap 11 (6-14) Blood Urea Nitrogen 23mg/dL (7-20) Creatinine 1.6mg/dL (0.6-1.0) Estimated GFR (Cockcroft-Gault) 30.5 Glucose Level 115mg/dL (70-99) Calcium Level 8.7mg/dL (8.5-10.1) Review of Systems Review of Systems denies fever, chills + R back pain near site of chest tube + cough + fatigue and generalized weakness Assessment and Plan Assessmemt and Plan ASSESSMENT: 1. RUL PNA, with possible empyema 2. Atelectasis, trace pleural effusions bilateral 3. 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 YOAN on CKD6. 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 GERD, hx DVT - venous doppler are neg, vq low prob PE 7. Dyslipidemia 8. HTN - stable 9. Incidental left renal cyst 10. 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 Labs Laboratory Tests Test 01/22/17 12:05 01/22/17 17:15 01/23/17 10:10 White Blood Count 14.2x10^3/uL (4.0-11.0) Red Blood Count 3.33x10^6/uL (3.50-5.40) Hemoglobin 10.4g/dL (12.0-15.5) Hematocrit 32.1% (36.0-47.0) Mean Corpuscular Volume 97fL (79-100) Mean Corpuscular Hemoglobin 31pg (25-35) Mean Corpuscular Hemoglobin Concent 32g/dL (31-37) Red Cell Distribution Width 13.5% (11.5-14.5) Platelet Count 280x10^3/uL (140-400) Neutrophils (%) (Auto) 82% (31-73) Lymphocytes (%) (Auto) 5% (24-48) Monocytes (%) (Auto) 12% (0-9) Eosinophils (%) (Auto) 1% (0-3) Basophils (%) (Auto) 0% (0-3) Neutrophils # (Auto) 11.7x10^3uL (1.8-7.7) Lymphocytes # (Auto) 0.7x10^3/uL (1.0-4.8) Monocytes # (Auto) 1.7x10^3/uL (0.0-1.1) Eosinophils # (Auto) 0.1x10^3/uL (0.0-0.7) Basophils # (Auto) 0.0x10^3/uL (0.0-0.2) Prothrombin Time 14.3SEC (11.7-14.0) Prothromb Time International Ratio 1.2 (0.8-1.1) Sodium Level 133mmol/L (136-145) 136mmol/L (136-145) Potassium Level 5.6mmol/L (3.5-5.1) 4.7mmol/L (3.5-5.1) Chloride Level 97mmol/L (98-107) 101mmol/L (98-107) Carbon Dioxide Level 26mmol/L (21-32) 24mmol/L (21-32) Anion Gap 10 (6-14) 11 (6-14) Blood Urea Nitrogen 25mg/dL (7-20) 23mg/dL (7-20) Creatinine 1.7mg/dL (0.6-1.0) 1.6mg/dL (0.6-1.0) Estimated GFR (Cockcroft-Gault) 28.4 30.5 Glucose Level 119mg/dL (70-99) 115mg/dL (70-99) Calcium Level 9.0mg/dL (8.5-10.1) 8.7mg/dL (8.5-10.1) Phosphorus Level 3.7mg/dL (2.6-4.7) Magnesium Level 1.6mg/dL (1.8-2.4) Albumin 2.2g/dL (3.4-5.0) Body Fluid pH 6.8 Laboratory Tests Test 01/22/17 17:15 01/23/17 10:10 Body Fluid pH 6.8 Sodium Level 136mmol/L (136-145) Potassium Level 4.7mmol/L (3.5-5.1) Chloride Level 101mmol/L (98-107) Carbon Dioxide Level 24mmol/L (21-32) Anion Gap 11 (6-14) Blood Urea Nitrogen 23mg/dL (7-20) Creatinine 1.6mg/dL (0.6-1.0) Estimated GFR (Cockcroft-Gault) 30.5 Glucose Level 115mg/dL (70-99) Calcium Level 8.7mg/dL (8.5-10.1) Microbiology 01/22/17 Gram Stain - Final, Complete Medications Current Medications Ondansetron HCl (Zofran) 4 mg PRN Q6HRS PRN IV NAUSEA/VOMITING; Start 01/22/17 at 11:15 Prochlorperazine Edisylate (Compazine) 10 mg PRN Q6HRS PRN IV NAUSEA/VOMITING; Start 01/22/17 at 11:15 Prochlorperazine (Compazine) 25 mg PRN Q12HR PRN CA NAUSEA/VOMITING; Start 01/22 at 11:15 Al Hydrox/Mg Hydrox/Simethicone (Mylanta Plus Xs) 30 ml PRN Q3HRS PRN PO HEARTBURN / GAS; Start 01/22/17 at 11:15 Calcium Carbonate/ Glycine (Tums) 500 mg PRN Q3HRS PRN PO UPSET STOMACH; Start 01/22/17 at 11:15 Morphine Sulfate 1 mg PRN Q2HR PRN IV PAIN Last administered on 01/23/17 09:41 ; Start 01/22/17 at 11:15 Acetaminophen/ Hydrocodone Bitart (Lortab 5/325) 1 tab PRN Q4HRS PRN PO MODERATE PAIN; Start 01/22/17 at 11:15 Acetaminophen (Tylenol) 650 mg PRN Q6HRS PRN PO MILD PAIN / TEMP; Start at 11:15 Ibuprofen (Motrin) 400 mg PRN Q6HRS PRN PO MILD PAIN; Start 01/22/17 at 11:15 Docusate Sodium (Colace) 100 mg BID PO Last administered on 01/23/17 09:03; Start 01/22/17 at 12:00 Magnesium Hydroxide (Milk Of Magnesia) 2,400 mg PRN Q12HR PRN PO CONSTIPATION; Start 01/22/17 at 11:15 Lactulose 20 gm PRN Q12HR PRN PO CONSTIPATION; Start 01/22/17 at 11:15 Bisacodyl (Dulcolax Supp) 10 mg PRN DAILY PRN CA CONSTIPATION; Start 01/22/17 at 11:15 Enoxaparin Sodium 40 mg 40 mg Q24H SQ ; Start 01/22/17 at 16:00; Stop 01/22/17 at 16:00; Status DC Vancomycin HCl 1 gm/Sodium Chloride 250 ml @ 250 mls/hr Q24H IV ; Start at 11:15; Status UNV Piperacillin Sod/ Tazobactam Sod/ Sodium Chloride (Zosyn/Iv Sodium Chloride 0.9 % 50ml) 50 ml @ 100 mls/hr Q6HRS IV Last administered on 01/23/17 11:12; Start 01/22/17 at 12:00 Guaifenesin (Robitussin Dm) 10 ml PRN Q6HRS PRN PO COUGH; Start 01/22/17 at 11: 15 Vancomycin HCl 1 each 1 each PRN DAILY PRN MC SEE COMMENTS Last administered on 01/23/17 10:59; Start 01/22/17 at 11:30 Vancomycin HCl/ Sodium Chloride (Iv Sodium Chloride 0.9% 500ml Bag) 500 ml @ 250 mls/hr 1X ONCE IV ; Start 01/22/17 at 12:00; Stop 01/22/17 at 13:59; Status Cancel Alprazolam (Xanax) 0.25 mg BID PO Last administered on 01/22/17 19:03; Start at 12:00 Atorvastatin Calcium (Lipitor) 40 mg HS PO Last administered on 01/22/17 20:39 ; Start 01/22/17 at 21:00 Cyclobenzaprine HCl (Flexeril) 10 mg TID PO Last administered on 01/23/17 09:05 ; Start 01/22/17 at 14:00 EZETIMIBE (Zetia) 10 mg DAILY PO Last administered on 01/23/17 09:05; Start 01/22/17 at 12:00 Ferrous Sulfate (Feosol) 325 mg DAILYWBKFT PO Last administered on 01/23/17 09: 04; Start 01/22/17 at 12:00 Acetaminophen/ Hydrocodone Bitart (Lortab 7.5/325) 1 tab PRN Q4HRS PRN PO SEVERE PAIN Last administered on 01/23/17 11:38; Start 01/22/17 at 12:00 Metoprolol Tartrate (Lopressor) 50 mg BID PO Last administered on 01/23/17 09: 04; Start 01/22/17 at 12:00 Multivitamins/ Calcium (Thera M Plus) 1 tab DAILY PO Last administered on 09:05; Start 01/22/17 at 12:00 Oxycodone HCl (Oxycontin) 10 mg BID PO Last administered on 01/23/17 09:05; Start 01/22/17 at 12:00 Sennosides (Senna) 8.6 mg PRN DAILY PRN PO CONSTIPATION; Start 01/22/17 at 12:00 Docusate Sodium (Colace) 100 mg DAILY PO ; Start 01/22/17 at 12:15; Status Cancel Losartan Potassium (Cozaar) 50 mg DAILY PO Last administered on 01/23/17 09:04 ; Start 01/23/17 at 09:00 Nifedipine (Procardia Xl) 30 mg DAILY PO Last administered on 01/23/17 09:05; Start 01/22/17 at 12:00 Pantoprazole Sodium (Protonix) 40 mg DAILYAC PO Last administered on 01/23/17 09:04; Start 01/22/17 at 12:30 Triamterene/HCTZ (Maxzide 37.5/ 25mg) 1 tab DAILY PO Last administered on 09:03; Start 01/22/17 at 12:30 Piperacillin Sod/ Tazobactam Sod (Zosyn Per Pharmacy) 1 each PRN DAILY PRN MC SEE COMMENTS; Start 01/22/17 at 12:30; Stop 01/22/17 at 12:30; Status DC Heparin Sodium (Porcine) 5000 unit 5,000 unit Q8HRS SQ Last administered on 01/23 06:15; Start 01/22/17 at 14:00 Vancomycin HCl/ Sodium Chloride (Iv Sodium Chloride 0.9% 250ml) 250 ml @ 250 mls/hr Q48H IV ; Start 01/23/17 at 21:00 Vancomycin HCl 1 each 1X ONCE MC ; Start 01/25/17 at 20:30; Stop 01/25/17 at 20: 31 Lidocaine/Sodium Bicarbonate (Buffered Lidocaine 1%) 20 ml STK-MED ONCE IJ ; Start 01/22/17 at 16:37; Stop 01/22/17 at 16:38; Status DC Fentanyl Citrate (Fentanyl 2ml Vial) 100 mcg STK-MED ONCE .ROUTE ; Start at 16:37; Stop 01/22/17 at 16:38; Status DC Midazolam HCl 2 mg 2 mg STK-MED ONCE .ROUTE ; Start 01/22/17 at 16:38; Stop at 16:39; Status DC Alteplase, Recombinant/ Sodium Chloride (Cathflo/Iv Sodium Chloride 0.9% 50ml) 50 ml @ 30 mls/hr 1X ONCE IV Last administered on 01/22/17 18:01; Start at 18:00; Stop 01/22/17 at 19:39; Status DC Lidocaine/Sodium Bicarbonate (Buffered Lidocaine 1%) 3 ml 1X ONCE IJ Last administered on 01/22/17 17:54; Start 01/22/17 at 18:00; Stop 01/22/17 at 18:01; Status DC Midazolam HCl (Versed) 0.5 mg 1X ONCE IV Last administered on 01/22/17 17:54; Start 01/22/17 at 18:00; Stop 01/22/17 at 18:01; Status DC Fentanyl Citrate (Fentanyl 2ml Vial) 100 mcg 1X ONCE IV Last administered on 17:55; Start 01/22/17 at 18:00; Stop 01/22/17 at 18:01; Status DC Morphine Sulfate 2 mg 2 mg 1X ONCE IV ; Start 01/22/17 at 20:15; Stop 01/22/17 at 20:24; Status DC Diltiazem HCl/ Dextrose (Cardizem) 125 ml @ 0 mls/hr CONT PRN IV SEE I/O RECORD ; Start 01/22/17 at 20:15; Stop 01/22/17 at 20:38; Status DC Diltiazem HCl (Cardizem) 20 mg 1X ONCE IVP ; Start 01/22/17 at 20:15; Stop at 20:38; Status DC Active Scripts Active Reported Triamterene-Hctz 37.5-25 Mg Cp (Triamterene/Hydrochlorothiazid) 1 Each Capsule 1 Cap PO DAILY Senokot (Sennosides) 8.6 Mg Tablet 8.6 Mg PO PRN DAILY PRN Oxycontin (Oxycodone HCl) 10 Mg Tab.er.12h 10 Mg PO BID Omeprazole 40 Mg Capsule.dr 40 Mg PO DAILY Nifedipine Er (Nifedipine) 30 Mg Tablet.er 30 Mg PO DAILY Thera M Plus Tablet (Multivits,Ca,Minerals/Iron/FA) 1 Each Tablet 1 Each PO DAILY Metoprolol Tartrate 50 Mg Tablet 50 Mg PO BID Hydrocodone-Apap 7.5-325 (Hydrocodone Bit/Acetaminophen) 1 Each Tablet 1 Tab PO PRN Q4HRS PRN Ferrous Sulfate 325 Mg Tablet 1 Tab PO DAILY Zetia (Ezetimibe) 10 Mg Tablet 10 Mg PO DAILY Eprosartan Mesylate 600 Mg Tablet 600 Mg PO DAILY Docusate Sodium 100 Mg Tablet 100 Mg PO DAILY Cyclobenzaprine Hcl 10 Mg Tablet 10 Mg PO TID Atorvastatin Calcium 40 Mg Tablet 40 Mg PO HS Xanax (Alprazolam) 0.25 Mg Tablet 1 Tab PO BID Vitals/I & O Vital Sign - Last 24 Hours 01/22/17 01/22/17 01/22/17 01/22/17 14:39 14:42 17:08 17:13 Temp 96.8 96.8 Pulse 87 100 96 Resp 18 B/P 134/59 Pulse Ox 95 95 95 O2 Delivery Nasal Cannula Nasal Cannula Nasal Cannula Nasal Cannula O2 Flow Rate 2.0 2.0 2.0 4.0 01/22/17 01/22/17 01/22/17 01/22/17 17:18 17:23 17:28 17:37 Pulse 101 99 100 100 Resp 16 Pulse Ox 97 96 96 97 O2 Delivery Nasal Cannula Nasal Cannula Nasal Cannula Nasal Cannula O2 Flow Rate 4.0 4.0 4.0 4.0 01/22/17 01/22/17 01/22/17 01/22/17 17:52 17:55 18:15 18:30 Pulse 91 92 91 Resp 16 16 B/P 147/63 146/57 Pulse Ox 97 96 O2 Delivery Nasal Cannula Nasal Cannula O2 Flow Rate 4.0 4.0 01/22/17 01/22/17 01/22/17 01/22/17 18:38 18:38 19:00 19:15 Temp 98.8 98.8 Pulse 148 159 Resp 22 22 B/P 140/65 117/73 Pulse Ox 94 94 O2 Delivery Nasal Cannula Nasal Cannula Nasal Cannula Nasal Cannula O2 Flow Rate 2.0 2.0 2.0 2.0 01/22/17 01/22/17 01/22/17 01/22/17 19:45 19:48 20:15 20:38 Pulse 152 89 Resp 22 B/P 129/73 120/64 Pulse Ox 94 96 95 O2 Delivery Nasal Cannula Nasal Cannula Nasal Cannula Nasal Cannula O2 Flow Rate 2.0 2.0 2.0 2.0 01/22/17 01/22/17 01/22/17 01/22/17 20:40 20:41 21:15 21:16 Pulse 113 85 90 Resp 20 B/P 134/68 120/55 132/66 Pulse Ox 95 95 94 O2 Delivery Nasal Cannula Nasal Cannula Nasal Cannula O2 Flow Rate 2.0 2.0 2.0 01/22/17 01/23/17 01/23/17 01/23/17 22:23 00:40 03:00 07:00 Temp 98.6 97.9 97.8 98.6 97.9 97.8 Pulse 84 95 94 Resp B/P 119/61 124/62 124/62 Pulse Ox 95 94 96 O2 Delivery Nasal Cannula Nasal Cannula Nasal Cannula Room Air O2 Flow Rate 2.0 2.0 2.0 01/23/17 01/23/17 01/23/17 01/23/17 08:00 09:04 09:04 09:05 Pulse 94 94 B/P 124/62 124/62 Pulse Ox 96 O2 Delivery Nasal Cannula Nasal Cannula O2 Flow Rate 2.0 2.0 01/23/17 01/23/17 01/23/17 01/23/17 09:05 09:41 10:11 11:00 Temp 97.7 97.7 Pulse 94 77 Resp 24 B/P 124/62 116/53 Pulse Ox 96 96 100 O2 Delivery Nasal Cannula Nasal Cannula Nasal Cannula O2 Flow Rate 2.0 2.0 3.0 01/23/17 11:38 Pulse Ox 96 O2 Delivery Nasal Cannula O2 Flow Rate 2.0 Intake and Output 01/22/17 01/22/17 01/23/17 15:00 23:00 07:00 Intake Total 50 ml 0 ml Output Total 500 ml Balance 50 ml -500 ml CASTDAMION,NIAL K III DO Jan 23, 2017 12:47
--- NOTE | 2017-01-23 13:38 | CONS ---
DATE OF CONSULTATION: 01/22/2017 ATTENDING PHYSICIAN: Dr. Chung. REASON FOR CONSULTATION: The patient is seen in pulmonary consultation at the request of Dr. Chung for abnormal x-ray and possible empyema. HISTORY OF PRESENT ILLNESS: The patient is an 86-year-old that presented to [facility] with right-sided pain, pleurisy type of symptoms. No fever, chills or night sweats. She had a cough, mostly nonproductive. No hemoptysis. Chest x-ray revealed an infiltrate and effusion. CT confirmed loculated effusion with some atelectasis and infiltrates. She has been on antibiotic. She was transferred to [facility] for further evaluation and management. PAST MEDICAL HISTORY: Hypertension, hyperlipidemia, gastroesophageal reflux, and previous history of DVT. PAST SURGICAL HISTORY: Cholecystectomy, total knee replacement, and hysterectomy. FAMILY HISTORY: Coronary artery disease. SOCIAL HISTORY: She has never smoked, does work as a homemaker and no significant occupational or environmental exposures. REVIEW OF SYSTEMS: As indicated above, otherwise, a 10-point system was reviewed and negative. ALLERGIES: TETRACYCLINE. CURRENT MEDICATION: List was reviewed. Please see the MRAD. She is on vancomycin and Zosyn. HOME MEDICATIONS: Along with nebulized treatments and DVT prophylaxis. PHYSICAL EXAMINATION: GENERAL: The patient appeared to be younger than stated age. She did not appear to be septic or toxic. VITAL SIGNS: O2 saturation on 2 liters was 94%. HEENT: Eyes, the sclerae were nonicteric. NECK: Jugular venous distention was not elevated. No lymphadenopathy. CHEST: Full expansion. LUNGS: Diminished air flow on the right. CARDIOVASCULAR: Regular rate and rhythm with S1, S2, no S3. ABDOMEN: Soft, nontender, nondistended. EXTREMITIES: No clubbing, cyanosis or edema. NEUROLOGIC: The patient was awake, alert, following commands. A detailed neuro exam was not performed. LABORATORY DATA: White count was 14,000, hemoglobin of 10, and hematocrit 30. INR was 1.2. Electrolytes were deranged, potassium was slightly elevated. BUN was elevated. Creatinine was elevated. Albumin was low upon admission. IMPRESSION: 1. Pneumonia, complicated with parapneumonic effusion. 2. Parapneumonic effusion, rule out empyema. 3. Pleurisy secondary to above. 4. Chronic kidney disease. 5. Hypertension. 6. Systemic inflammatory response syndrome. 7. History of deep venous thrombosis, negative venous Dopplers during this admission; ventilation-perfusion scan, low probability for pulmonary embolism. 8. Hiatal hernia. PLAN: 1. Continue current broad spectrum antibiotics. 2. Case discussed with Dr. Meza. The patient will undergo chest tube placement. She may require TPA if there is no significant drainage. 3. Send pleural fluid analysis for routine cultures including cytology. I do appreciate the privilege in sharing in the patient's care. CHEAM QUIROZ MD DR: BRADEN/julia JOB#: [id number] / [id number] MCKAYLA Whyte MD
[2017-01-23 15:00] VITALS: BP 112/67
--- NOTE | 2017-01-23 15:18 | PDOC ---
Infectious Disease Note Vital Sign Vital Signs Vital Signs Date Time Temp Pulse Resp B/P Pulse Ox O2 Delivery O2 Flow Rate FiO2 01/23/17 12:38 96 Nasal Cannula 2.0 01/23/17 11:00 97.7 77 24 116/53 97.7 Labs Lab Laboratory Tests Test 01/22/17 17:15 01/23/17 10:10 Body Fluid pH 6.8 Sodium Level 136mmol/L (136-145) Potassium Level 4.7mmol/L (3.5-5.1) Chloride Level 101mmol/L (98-107) Carbon Dioxide Level 24mmol/L (21-32) Anion Gap 11 (6-14) Blood Urea Nitrogen 23mg/dL (7-20) Creatinine 1.6mg/dL (0.6-1.0) Estimated GFR (Cockcroft-Gault) 30.5 Glucose Level 115mg/dL (70-99) Calcium Level 8.7mg/dL (8.5-10.1) Micro BC from [facility]GT[facility] Objective Assessment Pneumonia Parapneumonic effusion, empyema suspected. s/p CT placement, 01/22. Leukocytosis CKD Plan Plan of Care D/c vancomycin Continue Zosyn Monitor lab values Await fluid analysis and cultures Supportive care Thank you [id number] Attending Co-Sign The patient was seen and interviewed as well as examined at the bedside. The chart was reviewed. The case was discussed. Agree with the plan of care. PRANAY CASILLAS APRN Jan 23, 2017 15:18 GABO HERNANDEZ MD Jan 23, 2017 15:22
--- NOTE | 2017-01-23 16:09 | RAD ---
One-view chest HISTORY Right-sided chest tube Portable upright AP view chest 3:56 p.m. The heart and pulmonary vessels appear normal. The left lung is clear. There is a right-sided small caliber chest tube. This patchy opacities in the mid right lung. IMPRESSION Right sided infiltrate and right-sided chest tube. No pneumothorax. Electronically signed by: Reji Penny MD (Jan 23, 2017 16:08:08)
--- NOTE | 2017-01-23 17:19 | PDOC ---
PULMONARY PROGRESS NOTES Subjective pt feel better less pleuritic pain Vitals Vital Signs Date Time Temp Pulse Resp B/P Pulse Ox O2 Delivery O2 Flow Rate FiO2 01/23/17 15:00 98.2 88 20 112/67 100 Room Air 3.0 98.2 ROS: No Nausea, No Abdominal Pain, No Increase Cough General: Alert Lungs: Clear Cardiovascular: S1, S2 Abdomen: Soft, Non-tender Neuro Exam: Alert Extremities: No Edema Skin: Warm Labs Laboratory Tests Test 01/22/17 12:05 01/22/17 17:15 01/23/17 10:10 White Blood Count 14.2x10^3/uL (4.0-11.0) Red Blood Count 3.33x10^6/uL (3.50-5.40) Hemoglobin 10.4g/dL (12.0-15.5) Hematocrit 32.1% (36.0-47.0) Mean Corpuscular Volume 97fL (79-100) Mean Corpuscular Hemoglobin 31pg (25-35) Mean Corpuscular Hemoglobin Concent 32g/dL (31-37) Red Cell Distribution Width 13.5% (11.5-14.5) Platelet Count 280x10^3/uL (140-400) Neutrophils (%) (Auto) 82% (31-73) Lymphocytes (%) (Auto) 5% (24-48) Monocytes (%) (Auto) 12% (0-9) Eosinophils (%) (Auto) 1% (0-3) Basophils (%) (Auto) 0% (0-3) Neutrophils # (Auto) 11.7x10^3uL (1.8-7.7) Lymphocytes # (Auto) 0.7x10^3/uL (1.0-4.8) Monocytes # (Auto) 1.7x10^3/uL (0.0-1.1) Eosinophils # (Auto) 0.1x10^3/uL (0.0-0.7) Basophils # (Auto) 0.0x10^3/uL (0.0-0.2) Prothrombin Time 14.3SEC (11.7-14.0) Prothromb Time International Ratio 1.2 (0.8-1.1) Sodium Level 133mmol/L (136-145) 136mmol/L (136-145) Potassium Level 5.6mmol/L (3.5-5.1) 4.7mmol/L (3.5-5.1) Chloride Level 97mmol/L (98-107) 101mmol/L (98-107) Carbon Dioxide Level 26mmol/L (21-32) 24mmol/L (21-32) Anion Gap 10 (6-14) 11 (6-14) Blood Urea Nitrogen 25mg/dL (7-20) 23mg/dL (7-20) Creatinine 1.7mg/dL (0.6-1.0) 1.6mg/dL (0.6-1.0) Estimated GFR (Cockcroft-Gault) 28.4 30.5 Glucose Level 119mg/dL (70-99) 115mg/dL (70-99) Calcium Level 9.0mg/dL (8.5-10.1) 8.7mg/dL (8.5-10.1) Phosphorus Level 3.7mg/dL (2.6-4.7) Magnesium Level 1.6mg/dL (1.8-2.4) Albumin 2.2g/dL (3.4-5.0) Body Fluid pH 6.8 Laboratory Tests Test 01/23/17 10:10 Sodium Level 136mmol/L (136-145) Potassium Level 4.7mmol/L (3.5-5.1) Chloride Level 101mmol/L (98-107) Carbon Dioxide Level 24mmol/L (21-32) Anion Gap 11 (6-14) Blood Urea Nitrogen 23mg/dL (7-20) Creatinine 1.6mg/dL (0.6-1.0) Estimated GFR (Cockcroft-Gault) 30.5 Glucose Level 115mg/dL (70-99) Calcium Level 8.7mg/dL (8.5-10.1) Medications Active Scripts Medications Dose Route/Sig Days Date Category Triamterene-Hctz 37.5-25 Mg Cp (Triamterene/Hydrochlorothiazid) 1 Each Capsule 1 Cap PO DAILY 01/22/17 Reported Senokot (Sennosides) 8.6 Mg Tablet 8.6 Mg PO PRN DAILY PRN 01/22/17 Reported Oxycontin (Oxycodone HCl) 10 Mg Tab.er.12h 10 Mg PO BID 01/22/17 Reported Omeprazole 40 Mg Capsule.dr 40 Mg PO DAILY 01/22/17 Reported Nifedipine Er (Nifedipine) 30 Mg Tablet.er 30 Mg PO DAILY 01/22/17 Reported Thera M Plus Tablet (Multivits,Ca,Minerals/Iron/FA) 1 Each Tablet 1 Each PO DAILY 01/22/17 Reported Metoprolol Tartrate 50 Mg Tablet 50 Mg PO BID 01/22/17 Reported Hydrocodone-Apap 7.5-325 (Hydrocodone Bit/Acetaminophen) 1 Each Tablet 1 Tab PO PRN Q4HRS PRN 01/22/17 Reported Ferrous Sulfate 325 Mg Tablet 1 Tab PO DAILY 01/22/17 Reported Zetia (Ezetimibe) 10 Mg Tablet 10 Mg PO DAILY 01/22/17 Reported Eprosartan Mesylate 600 Mg Tablet 600 Mg PO DAILY 01/22/17 Reported Docusate Sodium 100 Mg Tablet 100 Mg PO DAILY 01/22/17 Reported Cyclobenzaprine Hcl 10 Mg Tablet 10 Mg PO TID 01/22/17 Reported Atorvastatin Calcium 40 Mg Tablet 40 Mg PO HS 01/22/17 Reported Xanax (Alprazolam) 0.25 Mg Tablet 1 Tab PO BID 01/22/17 Reported Impression . 1. Pneumonia, complicated with parapneumonic effusion. 2. Parapneumonic effusion, rule out empyema. 3. Pleurisy secondary to above. 4. Chronic kidney disease. 5. Hypertension. 6. Systemic inflammatory response syndrome. 7. History of deep venous thrombosis, negative venous Dopplers during this admission; ventilation-perfusion scan, low probability for pulmonary embolism. 8. Hiatal hernia. Plan . 1. Continue current broad spectrum antibiotics, per ID 2. Cxr reviewed not much fluid left 3. Send pleural fluid analysis for routine cultures including cytology, pending CHEMA QUIROZ MD Jan 23, 2017 17:19
[2017-01-23 19:00] VITALS: BP 134/57
[2017-01-23] MEDS ORDERED: VANCOMYCIN 1 GM in IV NORMAL SALINE 250ML 250 ML IV SCH (21:00)
[2017-01-23] MEDS: ATORVASTATIN CALCIUM 40 MG TABLET. PO SCH (21:26)
[2017-01-23 23:00] VITALS: BP 119/52
[2017-01-24] MEDS: PIPERACILLIN/TAZOBACTAM 2.25 GM in IV NORMAL SALINE 50ML 50 ML IV SCH ×4 (00:02→19:15)
[2017-01-24] MEDS: MORPHINE SULFATE 2 MG/ML DISP.SYRIN. IV PRN (01:03)
[2017-01-24] MEDS: HYDROCODONE/APAP 7.5/325MG TABLET. PO PRN (01:38)
[2017-01-24 03:00] VITALS: BP 128/84
[2017-01-24 04:47] LABS: BASO % 0 % (0-3); EOS % 2 % (0-3); HEMATOCRIT 29.4 % (36.0-47.0); HEMOGLOBIN 9.7 g/dL (12.0-15.5); LYMPH # 0.8 x10^3/uL (1.0-4.8); LYMPH % 8 % (24-48); MEAN CORPUSCULAR HEMOGLOBIN 32 pg (25-35); MEAN CORPUSCULAR HGB CONC 33 g/dL (31-37); MEAN CORPUSCULAR VOLUME 97 fL (79-100); MONO % 16 % (0-9); NEUT % 74 % (31-73); PLATELET COUNT 286 x10^3/uL (140-400); RED BLOOD COUNT 3.03 x10^6/uL (3.50-5.40); RED CELL DISTRIBUTION WIDTH 13.4 % (11.5-14.5); WHITE BLOOD COUNT 10.7 x10^3/uL (4.0-11.0)
[2017-01-24 05:16] LABS: CALCIUM 8.8 mg/dL (8.5-10.1); CREATININE 1.7 mg/dL (0.6-1.0); GFR 28.4; POTASSIUM 4.9 mmol/L (3.5-5.1)
[2017-01-24] MEDS: HEPARIN PF for SUB-Q USE 5,000 UNIT/0.5 ML VIAL. SQ SCH ×3 (05:56→22:22)
[2017-01-24 07:00] VITALS: BP 123/64
--- NOTE | 2017-01-24 08:29 | PDOC ---
PROGRESS NOTES Subjective Subjective Patient seen and examined Objective Objective Vital Signs Date Time Temp Pulse Resp B/P Pulse Ox O2 Delivery O2 Flow Rate FiO2 01/24/17 03:00 99.7 90 20 128/84 96 Room Air 2.0 99.7 Intake and Output 01/24/17 07:00 Intake Total 820 ml Output Total 1450 ml Balance -630 ml Intake Oral 820 ml Output Urine Total 1400 ml Other 50 ml # Voids 2 Physical Exam Abdomen: Normal bowel sounds Heart: Regular rate General: No acute distress Lungs: Other (decreased breath sounds) Assessment Assessment Problems Medical Problems: (1) CAP (community acquired pneumonia) Status: Acute 1. Paroxysmal atrial fibrillation with rapid ventricular response rate. Patient continues in a sinus rhythm at this time. Continues on metoprolol. If reoccurrs, suggest change nifedipine to cardizem. Cha2ds 2 vasc >3 however with recent falls would not be ideal candidate for anticoagulation. Suggest aspirin for stroke prophylaxis. 2. pneumonia / empyema - CT, mgmt per Pulmonary 3. chest pain likely secondary to #2. plans for OP MPI at [facility]. 4. hypertension - controlled. 5. CKD - follows with Dr German. Comment Review of Relevant I have reviewed the following items carrie (where applicable) has been applied. Labs Laboratory Tests Test 01/22/17 12:05 01/22/17 17:15 01/23/17 10:10 01/24/17 03:55 White Blood Count 14.2x10^3/uL (4.0-11.0) 10.7x10^3/uL (4.0-11.0) Red Blood Count 3.33x10^6/uL (3.50-5.40) 3.03x10^6/uL (3.50-5.40) Hemoglobin 10.4g/dL (12.0-15.5) 9.7g/dL (12.0-15.5) Hematocrit 32.1% (36.0-47.0) 29.4% (36.0-47.0) Mean Corpuscular Volume 97fL (79-100) 97fL (79-100) Mean Corpuscular Hemoglobin 31pg (25-35) 32pg (25-35) Mean Corpuscular Hemoglobin Concent 32g/dL (31-37) 33g/dL (31-37) Red Cell Distribution Width 13.5% (11.5-14.5) 13.4% (11.5-14.5) Platelet Count 280x10^3/uL (140-400) 286x10^3/uL (140-400) Neutrophils (%) (Auto) 82% (31-73) 74% (31-73) Lymphocytes (%) (Auto) 5% (24-48) 8% (24-48) Monocytes (%) (Auto) 12% (0-9) 16% (0-9) Eosinophils (%) (Auto) 1% (0-3) 2% (0-3) Basophils (%) (Auto) 0% (0-3) 0% (0-3) Neutrophils # (Auto) 11.7x10^3uL (1.8-7.7) 7.9x10^3uL (1.8-7.7) Lymphocytes # (Auto) 0.7x10^3/uL (1.0-4.8) 0.8x10^3/uL (1.0-4.8) Monocytes # (Auto) 1.7x10^3/uL (0.0-1.1) 1.7x10^3/uL (0.0-1.1) Eosinophils # (Auto) 0.1x10^3/uL (0.0-0.7) 0.3x10^3/uL (0.0-0.7) Basophils # (Auto) 0.0x10^3/uL (0.0-0.2) 0.0x10^3/uL (0.0-0.2) Prothrombin Time 14.3SEC (11.7-14.0) Prothromb Time International Ratio 1.2 (0.8-1.1) Sodium Level 133mmol/L (136-145) 136mmol/L (136-145) 134mmol/L (136-145) Potassium Level 5.6mmol/L (3.5-5.1) 4.7mmol/L (3.5-5.1) 4.9mmol/L (3.5-5.1) Chloride Level 97mmol/L (98-107) 101mmol/L (98-107) 99mmol/L (98-107) Carbon Dioxide Level 26mmol/L (21-32) 24mmol/L (21-32) 25mmol/L (21-32) Anion Gap 10 (6-14) 11 (6-14) 10 (6-14) Blood Urea Nitrogen 25mg/dL (7-20) 23mg/dL (7-20) 25mg/dL (7-20) Creatinine 1.7mg/dL (0.6-1.0) 1.6mg/dL (0.6-1.0) 1.7mg/dL (0.6-1.0) Estimated GFR (Cockcroft-Gault) 28.4 30.5 28.4 Glucose Level 119mg/dL (70-99) 115mg/dL (70-99) 128mg/dL (70-99) Calcium Level 9.0mg/dL (8.5-10.1) 8.7mg/dL (8.5-10.1) 8.8mg/dL (8.5-10.1) Phosphorus Level 3.7mg/dL (2.6-4.7) Magnesium Level 1.6mg/dL (1.8-2.4) Albumin 2.2g/dL (3.4-5.0) Body Fluid pH 6.8 Body Fluid Glucose 11mg/dL (.) Body Fluid Total Protein 4.5g/dL (.) Body Fluid Lactate Dehydrogenase 1268IU/L (.) Laboratory Tests Test 01/23/17 10:10 01/24/17 03:55 Sodium Level 136mmol/L (136-145) 134mmol/L (136-145) Potassium Level 4.7mmol/L (3.5-5.1) 4.9mmol/L (3.5-5.1) Chloride Level 101mmol/L (98-107) 99mmol/L (98-107) Carbon Dioxide Level 24mmol/L (21-32) 25mmol/L (21-32) Anion Gap 11 (6-14) 10 (6-14) Blood Urea Nitrogen 23mg/dL (7-20) 25mg/dL (7-20) Creatinine 1.6mg/dL (0.6-1.0) 1.7mg/dL (0.6-1.0) Estimated GFR (Cockcroft-Gault) 30.5 28.4 Glucose Level 115mg/dL (70-99) 128mg/dL (70-99) Calcium Level 8.7mg/dL (8.5-10.1) 8.8mg/dL (8.5-10.1) White Blood Count 10.7x10^3/uL (4.0-11.0) Red Blood Count 3.03x10^6/uL (3.50-5.40) Hemoglobin 9.7g/dL (12.0-15.5) Hematocrit 29.4% (36.0-47.0) Mean Corpuscular Volume 97fL (79-100) Mean Corpuscular Hemoglobin 32pg (25-35) Mean Corpuscular Hemoglobin Concent 33g/dL (31-37) Red Cell Distribution Width 13.4% (11.5-14.5) Platelet Count 286x10^3/uL (140-400) Neutrophils (%) (Auto) 74% (31-73) Lymphocytes (%) (Auto) 8% (24-48) Monocytes (%) (Auto) 16% (0-9) Eosinophils (%) (Auto) 2% (0-3) Basophils (%) (Auto) 0% (0-3) Neutrophils # (Auto) 7.9x10^3uL (1.8-7.7) Lymphocytes # (Auto) 0.8x10^3/uL (1.0-4.8) Monocytes # (Auto) 1.7x10^3/uL (0.0-1.1) Eosinophils # (Auto) 0.3x10^3/uL (0.0-0.7) Basophils # (Auto) 0.0x10^3/uL (0.0-0.2) Microbiology 01/22/17 Gram Stain - Final, Complete Medications Current Medications Ondansetron HCl (Zofran) 4 mg PRN Q6HRS PRN IV NAUSEA/VOMITING; Start 01/22/17 at 11:15 Prochlorperazine Edisylate (Compazine) 10 mg PRN Q6HRS PRN IV NAUSEA/VOMITING; Start 01/22/17 at 11:15 Prochlorperazine (Compazine) 25 mg PRN Q12HR PRN ID NAUSEA/VOMITING; Start 01/22 at 11:15 Al Hydrox/Mg Hydrox/Simethicone (Mylanta Plus Xs) 30 ml PRN Q3HRS PRN PO HEARTBURN / GAS; Start 01/22/17 at 11:15 Calcium Carbonate/ Glycine (Tums) 500 mg PRN Q3HRS PRN PO UPSET STOMACH; Start 01/22/17 at 11:15 Morphine Sulfate 1 mg PRN Q2HR PRN IV PAIN Last administered on 01/24/17 01:03 ; Start 01/22/17 at 11:15 Acetaminophen/ Hydrocodone Bitart (Lortab 5/325) 1 tab PRN Q4HRS PRN PO MODERATE PAIN; Start 01/22/17 at 11:15 Acetaminophen (Tylenol) 650 mg PRN Q6HRS PRN PO MILD PAIN / TEMP; Start at 11:15 Ibuprofen (Motrin) 400 mg PRN Q6HRS PRN PO MILD PAIN; Start 01/22/17 at 11:15 Docusate Sodium (Colace) 100 mg BID PO Last administered on 01/23/17 21:26; Start 01/22/17 at 12:00 Magnesium Hydroxide (Milk Of Magnesia) 2,400 mg PRN Q12HR PRN PO CONSTIPATION; Start 01/22/17 at 11:15 Lactulose 20 gm PRN Q12HR PRN PO CONSTIPATION; Start 01/22/17 at 11:15 Bisacodyl (Dulcolax Supp) 10 mg PRN DAILY PRN ID CONSTIPATION; Start 01/22/17 at 11:15 Enoxaparin Sodium 40 mg 40 mg Q24H SQ ; Start 01/22/17 at 16:00; Stop 01/22/17 at 16:00; Status DC Vancomycin HCl 1 gm/Sodium Chloride 250 ml @ 250 mls/hr Q24H IV ; Start at 11:15; Status UNV Piperacillin Sod/ Tazobactam Sod/ Sodium Chloride (Zosyn/Iv Sodium Chloride 0.9 % 50ml) 50 ml @ 100 mls/hr Q6HRS IV Last administered on 01/24/17 05:54; Start 01/22/17 at 12:00 Guaifenesin (Robitussin Dm) 10 ml PRN Q6HRS PRN PO COUGH; Start 01/22/17 at 11: 15 Vancomycin HCl 1 each 1 each PRN DAILY PRN MC SEE COMMENTS Last administered on 01/23/17 10:59; Start 01/22/17 at 11:30; Stop 01/23/17 at 15:13; Status DC Vancomycin HCl/ Sodium Chloride (Iv Sodium Chloride 0.9% 500ml Bag) 500 ml @ 250 mls/hr 1X ONCE IV ; Start 01/22/17 at 12:00; Stop 01/22/17 at 13:59; Status Cancel Alprazolam (Xanax) 0.25 mg BID PO Last administered on 01/23/17 21:26; Start at 12:00 Atorvastatin Calcium (Lipitor) 40 mg HS PO Last administered on 01/23/17 21:26 ; Start 01/22/17 at 21:00 Cyclobenzaprine HCl (Flexeril) 10 mg TID PO Last administered on 01/23/17 21:26 ; Start 01/22/17 at 14:00 EZETIMIBE (Zetia) 10 mg DAILY PO Last administered on 01/23/17 09:05; Start 01/22/17 at 12:00 Ferrous Sulfate (Feosol) 325 mg DAILYWBKFT PO Last administered on 01/23/17 09: 04; Start 01/22/17 at 12:00 Acetaminophen/ Hydrocodone Bitart (Lortab 7.5/325) 1 tab PRN Q4HRS PRN PO SEVERE PAIN Last administered on 01/24/17 01:38; Start 01/22/17 at 12:00 Metoprolol Tartrate (Lopressor) 50 mg BID PO Last administered on 01/23/17 21: 26; Start 01/22/17 at 12:00 Multivitamins/ Calcium (Thera M Plus) 1 tab DAILY PO Last administered on 09:05; Start 01/22/17 at 12:00 Oxycodone HCl (Oxycontin) 10 mg BID PO Last administered on 01/23/17 21:27; Start 01/22/17 at 12:00 Sennosides (Senna) 8.6 mg PRN DAILY PRN PO CONSTIPATION; Start 01/22/17 at 12:00 Docusate Sodium (Colace) 100 mg DAILY PO ; Start 01/22/17 at 12:15; Status Cancel Losartan Potassium (Cozaar) 50 mg DAILY PO Last administered on 01/23/17 09:04 ; Start 01/23/17 at 09:00 Nifedipine (Procardia Xl) 30 mg DAILY PO Last administered on 01/23/17 09:05; Start 01/22/17 at 12:00 Pantoprazole Sodium (Protonix) 40 mg DAILYAC PO Last administered on 01/23/17 09:04; Start 01/22/17 at 12:30 Triamterene/HCTZ (Maxzide 37.5/ 25mg) 1 tab DAILY PO Last administered on 09:03; Start 01/22/17 at 12:30 Piperacillin Sod/ Tazobactam Sod (Zosyn Per Pharmacy) 1 each PRN DAILY PRN MC SEE COMMENTS; Start 01/22/17 at 12:30; Stop 01/22/17 at 12:30; Status DC Heparin Sodium (Porcine) 5000 unit 5,000 unit Q8HRS SQ Last administered on 01/24 05:56; Start 01/22/17 at 14:00 Vancomycin HCl/ Sodium Chloride (Iv Sodium Chloride 0.9% 250ml) 250 ml @ 250 mls/hr Q48H IV ; Start 01/23/17 at 21:00; Stop 01/23/17 at 21:00; Status DC Vancomycin HCl 1 each 1X ONCE MC ; Start 01/25/17 at 20:30; Stop 01/25/17 at 20: 31 Lidocaine/Sodium Bicarbonate (Buffered Lidocaine 1%) 20 ml STK-MED ONCE IJ ; Start 01/22/17 at 16:37; Stop 01/22/17 at 16:38; Status DC Fentanyl Citrate (Fentanyl 2ml Vial) 100 mcg STK-MED ONCE .ROUTE ; Start at 16:37; Stop 01/22/17 at 16:38; Status DC Midazolam HCl 2 mg 2 mg STK-MED ONCE .ROUTE ; Start 01/22/17 at 16:38; Stop at 16:39; Status DC Alteplase, Recombinant/ Sodium Chloride (Cathflo/Iv Sodium Chloride 0.9% 50ml) 50 ml @ 30 mls/hr 1X ONCE IV Last administered on 01/22/17 18:01; Start at 18:00; Stop 01/22/17 at 19:39; Status DC Lidocaine/Sodium Bicarbonate (Buffered Lidocaine 1%) 3 ml 1X ONCE IJ Last administered on 01/22/17 17:54; Start 01/22/17 at 18:00; Stop 01/22/17 at 18:01; Status DC Midazolam HCl (Versed) 0.5 mg 1X ONCE IV Last administered on 01/22/17 17:54; Start 01/22/17 at 18:00; Stop 01/22/17 at 18:01; Status DC Fentanyl Citrate (Fentanyl 2ml Vial) 100 mcg 1X ONCE IV Last administered on 17:55; Start 01/22/17 at 18:00; Stop 01/22/17 at 18:01; Status DC Morphine Sulfate 2 mg 2 mg 1X ONCE IV ; Start 01/22/17 at 20:15; Stop 01/22/17 at 20:24; Status DC Diltiazem HCl/ Dextrose (Cardizem) 125 ml @ 0 mls/hr CONT PRN IV SEE I/O RECORD ; Start 01/22/17 at 20:15; Stop 01/22/17 at 20:38; Status DC Diltiazem HCl (Cardizem) 20 mg 1X ONCE IVP ; Start 01/22/17 at 20:15; Stop at 20:38; Status DC Active Scripts Active Reported Triamterene-Hctz 37.5-25 Mg Cp (Triamterene/Hydrochlorothiazid) 1 Each Capsule 1 Cap PO DAILY Senokot (Sennosides) 8.6 Mg Tablet 8.6 Mg PO PRN DAILY PRN Oxycontin (Oxycodone HCl) 10 Mg Tab.er.12h 10 Mg PO BID Omeprazole 40 Mg Capsule.dr 40 Mg PO DAILY Nifedipine Er (Nifedipine) 30 Mg Tablet.er 30 Mg PO DAILY Thera M Plus Tablet (Multivits,Ca,Minerals/Iron/FA) 1 Each Tablet 1 Each PO DAILY Metoprolol Tartrate 50 Mg Tablet 50 Mg PO BID Hydrocodone-Apap 7.5-325 (Hydrocodone Bit/Acetaminophen) 1 Each Tablet 1 Tab PO PRN Q4HRS PRN Ferrous Sulfate 325 Mg Tablet 1 Tab PO DAILY Zetia (Ezetimibe) 10 Mg Tablet 10 Mg PO DAILY Eprosartan Mesylate 600 Mg Tablet 600 Mg PO DAILY Docusate Sodium 100 Mg Tablet 100 Mg PO DAILY Cyclobenzaprine Hcl 10 Mg Tablet 10 Mg PO TID Atorvastatin Calcium 40 Mg Tablet 40 Mg PO HS Xanax (Alprazolam) 0.25 Mg Tablet 1 Tab PO BID Vitals/I & O Vital Sign - Last 24 Hours 01/23/17 01/23/17 01/23/17 01/23/17 09:04 09:04 09:05 09:05 Pulse 94 94 94 B/P 124/62 124/62 124/62 Pulse Ox 96 O2 Delivery Nasal Cannula O2 Flow Rate 2.0 01/23/17 01/23/17 01/23/17 01/23/17 09:41 11:00 11:38 15:00 Temp 97.7 98.2 97.7 98.2 Pulse 77 88 Resp 24 20 B/P 116/53 112/67 Pulse Ox 96 100 96 100 O2 Delivery Nasal Cannula Nasal Cannula Nasal Cannula Room Air O2 Flow Rate 2.0 3.0 2.0 3.0 01/23/17 01/23/17 01/23/17 01/23/17 17:23 19:00 20:00 21:26 Temp 98.4 98.4 Pulse 100 98 Resp 20 B/P 134/57 131/60 Pulse Ox 100 100 O2 Delivery Nasal Cannula Room Air Nasal Cannula O2 Flow Rate 3.0 2.0 2.0 01/23/17 01/23/17 01/24/17 01/24/17 21:27 23:00 01:03 01:27 Temp 98.1 98.1 Pulse 92 Resp 20 20 18 B/P 119/52 Pulse Ox 100 97 97 96 O2 Delivery Nasal Cannula Room Air Nasal Cannula Nasal Cannula O2 Flow Rate 2.0 2.0 2.0 2.0 01/24/17 01/24/17 01/24/17 01/24/17 01:27 01:38 02:38 03:00 Temp 99.7 99.7 Pulse 90 Resp 18 18 20 B/P 128/84 Pulse Ox 96 97 96 96 O2 Delivery Nasal Cannula Nasal Cannula Nasal Cannula Room Air O2 Flow Rate 2.0 2.0 2.0 2.0 Intake and Output 01/23/17 01/23/17 01/24/17 15:00 23:00 07:00 Intake Total 640 ml 180 ml Output Total 450 ml 1000 ml Balance 190 ml -820 ml DENEEN ARENAS MD Jan 24, 2017 08:29
[2017-01-24] MEDS: NIFEDIPINE ER 30 MG TAB.ER.24H PO SCH (08:54)
[2017-01-24] MEDS: METOPROLOL TART IMMED RELEASE 50 MG TABLET PO SCH ×2 (08:55→21:22)
[2017-01-24] MEDS: TRIAMTERENE/HCTZ 37.5/25MG TABLET. PO SCH (08:55)
[2017-01-24] MEDS: FERROUS SULFATE 325 MG TABLET PO SCH (08:58)
[2017-01-24] MEDS: MULTIVITAMIN with MINERAL TABLET. PO SCH (08:59)
[2017-01-24] MEDS: LOSARTAN POTASSIUM 50 MG TABLET. PO SCH (08:59)
[2017-01-24] MEDS: CYCLOBENZAPRINE 10 MG TABLET. PO SCH ×3 (08:59→21:21)
[2017-01-24] MEDS: ALPRAZOLAM 0.25 MG TABLET PO SCH ×2 (08:59→21:22)
[2017-01-24] MEDS: EZETIMIBE 10 MG TABLET PO SCH (08:59)
[2017-01-24] MEDS: DOCUSATE SODIUM 100 MG CAPSULE PO SCH ×2 (08:59→21:21)
[2017-01-24] MEDS: OXYCODONE ER 10 MG TAB.ER.12H. PO SCH ×2 (08:59→21:22)
[2017-01-24] MEDS: PANTOPRAZOLE 40 MG TABLET. PO SCH (09:00)
--- NOTE | 2017-01-24 10:22 | PDOC ---
Infectious Disease Note Subjective Subjective Not feeling well Requesting a cup of coffee with 2 creamers Constipated. Small cough and right-side chest discomfort. ROS ROS GEN: Denies fevers, chills, sweats RESP: Denies shortness of air GI: Denies n/v NEURO: Denies confusion, dizziness Vital Sign Vital Signs Vital Signs Date Time Temp Pulse Resp B/P Pulse Ox O2 Delivery O2 Flow Rate FiO2 01/24/17 08:59 90 128/84 01/24/17 08:59 96 Nasal Cannula 2.0 01/24/17 07:00 97.8 20 97.8 Physical Exam PHYSICAL EXAM GENERAL: Up in the chair, finishing breakfast, NAD LUNGS: Diminished aeration right lower base. CT intact HEART: S1S2, no gallop, no murmur ABD: Distended, soft, NT EXT: BLE trace edema. no cyanosis BRUSH OR BROOM CUTTER: Alert, oriented x 3, no focal neurologic deficit SKIN: No rash IV: ok Labs Lab Laboratory Tests Test 01/24/17 03:55 White Blood Count 10.7x10^3/uL (4.0-11.0) Red Blood Count 3.03x10^6/uL (3.50-5.40) Hemoglobin 9.7g/dL (12.0-15.5) Hematocrit 29.4% (36.0-47.0) Mean Corpuscular Volume 97fL (79-100) Mean Corpuscular Hemoglobin 32pg (25-35) Mean Corpuscular Hemoglobin Concent 33g/dL (31-37) Red Cell Distribution Width 13.4% (11.5-14.5) Platelet Count 286x10^3/uL (140-400) Neutrophils (%) (Auto) 74% (31-73) Lymphocytes (%) (Auto) 8% (24-48) Monocytes (%) (Auto) 16% (0-9) Eosinophils (%) (Auto) 2% (0-3) Basophils (%) (Auto) 0% (0-3) Neutrophils # (Auto) 7.9x10^3uL (1.8-7.7) Lymphocytes # (Auto) 0.8x10^3/uL (1.0-4.8) Monocytes # (Auto) 1.7x10^3/uL (0.0-1.1) Eosinophils # (Auto) 0.3x10^3/uL (0.0-0.7) Basophils # (Auto) 0.0x10^3/uL (0.0-0.2) Sodium Level 134mmol/L (136-145) Potassium Level 4.9mmol/L (3.5-5.1) Chloride Level 99mmol/L (98-107) Carbon Dioxide Level 25mmol/L (21-32) Anion Gap 10 (6-14) Blood Urea Nitrogen 25mg/dL (7-20) Creatinine 1.7mg/dL (0.6-1.0) Estimated GFR (Cockcroft-Gault) 28.4 Glucose Level 128mg/dL (70-99) Calcium Level 8.8mg/dL (8.5-10.1) Micro BC from [facility] NGTD Pleural fluid GRAM STAIN Final WBCS MODERATE RBCS MODERATE ORGANISMS NONE SEEN Objective Assessment Pneumonia Parapneumonic effusion, empyema suspected -Pleural analysis: pH 6.8, glu 11, T protein 4.5, LDH 1268. cytology pending -s/p CT placement, 01/22. Leukocytosis, improved CKD Plan Plan of Care Continue Zosyn Monitor lab values f/u cultures/cytology Supportive care Attending Co-Sign The patient was seen and interviewed as well as examined at the bedside. The chart was reviewed. The case was discussed. Agree with the plan of care. PRANAY CASILLAS APRN Jan 24, 2017 10:22 GABO HERNANDEZ MD Jan 24, 2017 13:53
[2017-01-24 11:00] VITALS: BP 105/60
--- NOTE | 2017-01-24 11:09 | CONS ---
DATE OF CONSULTATION: REQUESTING PHYSICIAN: Hospitalist. REASON FOR CONSULTATION: Renal failure. HISTORY OF PRESENT ILLNESS: This is an 86-year-old female, well-known with this physician with a history of hypertension and chronic kidney disease stage 3 secondary to the same. The patient is currently admitted to the hospital with infectious pneumonitis. In this setting, a Nephrology evaluation was requested. 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 The patient's creatinine is currently at 1.6, down from 1.7 on the day of admission. This is in keeping with previous laboratories. PAST MEDICAL HISTORY: Hypertension, chronic kidney disease stage 3, DVT, inferior vena cava filter, hyperlipidemia, and GE reflux disease. ALLERGIES: TETRACYCLINES. MEDICATIONS: Reviewed. FAMILY HISTORY: Noncontributory. SOCIAL HISTORY: The patient resides independently in ____. She ____ family. Nonsmoker. Does not drink alcohol on a regular basis. REVIEW OF SYSTEMS: No headaches, sinus problem, nasal drainage, epistaxis, or change in vision or hearing. No difficulty swallowing. No chest pain at this time. She does get some shortness of breath with exertion. She has cough with sputum production. No abdominal pain or upper or lower gastrointestinal blood loss, nausea, vomiting, diarrhea, seizures, or malignancies. PHYSICAL EXAMINATION: GENERAL APPEARANCE: The patient is awake, conversant, and appropriate. HEENT: Clear. NECK: No increased JVD. No thyromegaly, masses, or adenopathy. LUNGS: Decreased breath sound at the bases. CARDIAC: Without S3 or rub. ABDOMEN: Soft, nontender, and no bruits. EXTREMITIES: Without edema. NEUROLOGIC: Nonfocal localizing. PSYCHIATRIC: Good attention to detail, appropriate affect. Chest tube in place. LABORATORY DATA: Potassium 4.7, CO2 24, and creatinine 1.6. GFR is 30.5. White count 14, hemoglobin 10, and hematocrit 32%. IMPRESSION: 1. Chronic kidney disease, stage 3 due to hypertension and nephrosclerosis. 2. Infectious pneumonitis with pleural drain. 3. Hypertension. RECOMMENDATIONS: 1. Ongoing blood pressure control. 2. Fluid and electrolyte balance. 3. Antibiotics per culture results. HALLE PEACE MD DR: FERMÍN/julia JOB#: [id number] / [id number]
--- NOTE | 2017-01-24 14:27 | PDOC ---
PULMONARY PROGRESS NOTES Subjective pt feel better less pleuritic pain Vitals Vital Signs Date Time Temp Pulse Resp B/P Pulse Ox O2 Delivery O2 Flow Rate FiO2 01/24/17 12:59 98 Nasal Cannula 2.0 01/24/17 11:00 97.9 81 22 105/60 97.9 ROS: No Nausea, No Abdominal Pain, No Increase Cough General: Alert Lungs: Clear Cardiovascular: S1, S2 Abdomen: Soft, Non-tender Neuro Exam: Alert Extremities: No Edema Skin: Warm Labs Laboratory Tests Test 01/22/17 17:15 01/23/17 10:10 01/24/17 03:55 Body Fluid pH 6.8 Body Fluid Glucose 11mg/dL (.) Body Fluid Total Protein 4.5g/dL (.) Body Fluid Lactate Dehydrogenase 1268IU/L (.) Sodium Level 136mmol/L (136-145) 134mmol/L (136-145) Potassium Level 4.7mmol/L (3.5-5.1) 4.9mmol/L (3.5-5.1) Chloride Level 101mmol/L (98-107) 99mmol/L (98-107) Carbon Dioxide Level 24mmol/L (21-32) 25mmol/L (21-32) Anion Gap 11 (6-14) 10 (6-14) Blood Urea Nitrogen 23mg/dL (7-20) 25mg/dL (7-20) Creatinine 1.6mg/dL (0.6-1.0) 1.7mg/dL (0.6-1.0) Estimated GFR (Cockcroft-Gault) 30.5 28.4 Glucose Level 115mg/dL (70-99) 128mg/dL (70-99) Calcium Level 8.7mg/dL (8.5-10.1) 8.8mg/dL (8.5-10.1) White Blood Count 10.7x10^3/uL (4.0-11.0) Red Blood Count 3.03x10^6/uL (3.50-5.40) Hemoglobin 9.7g/dL (12.0-15.5) Hematocrit 29.4% (36.0-47.0) Mean Corpuscular Volume 97fL (79-100) Mean Corpuscular Hemoglobin 32pg (25-35) Mean Corpuscular Hemoglobin Concent 33g/dL (31-37) Red Cell Distribution Width 13.4% (11.5-14.5) Platelet Count 286x10^3/uL (140-400) Neutrophils (%) (Auto) 74% (31-73) Lymphocytes (%) (Auto) 8% (24-48) Monocytes (%) (Auto) 16% (0-9) Eosinophils (%) (Auto) 2% (0-3) Basophils (%) (Auto) 0% (0-3) Neutrophils # (Auto) 7.9x10^3uL (1.8-7.7) Lymphocytes # (Auto) 0.8x10^3/uL (1.0-4.8) Monocytes # (Auto) 1.7x10^3/uL (0.0-1.1) Eosinophils # (Auto) 0.3x10^3/uL (0.0-0.7) Basophils # (Auto) 0.0x10^3/uL (0.0-0.2) Magnesium Level 1.4mg/dL (1.8-2.4) Laboratory Tests Test 01/24/17 03:55 White Blood Count 10.7x10^3/uL (4.0-11.0) Red Blood Count 3.03x10^6/uL (3.50-5.40) Hemoglobin 9.7g/dL (12.0-15.5) Hematocrit 29.4% (36.0-47.0) Mean Corpuscular Volume 97fL (79-100) Mean Corpuscular Hemoglobin 32pg (25-35) Mean Corpuscular Hemoglobin Concent 33g/dL (31-37) Red Cell Distribution Width 13.4% (11.5-14.5) Platelet Count 286x10^3/uL (140-400) Neutrophils (%) (Auto) 74% (31-73) Lymphocytes (%) (Auto) 8% (24-48) Monocytes (%) (Auto) 16% (0-9) Eosinophils (%) (Auto) 2% (0-3) Basophils (%) (Auto) 0% (0-3) Neutrophils # (Auto) 7.9x10^3uL (1.8-7.7) Lymphocytes # (Auto) 0.8x10^3/uL (1.0-4.8) Monocytes # (Auto) 1.7x10^3/uL (0.0-1.1) Eosinophils # (Auto) 0.3x10^3/uL (0.0-0.7) Basophils # (Auto) 0.0x10^3/uL (0.0-0.2) Sodium Level 134mmol/L (136-145) Potassium Level 4.9mmol/L (3.5-5.1) Chloride Level 99mmol/L (98-107) Carbon Dioxide Level 25mmol/L (21-32) Anion Gap 10 (6-14) Blood Urea Nitrogen 25mg/dL (7-20) Creatinine 1.7mg/dL (0.6-1.0) Estimated GFR (Cockcroft-Gault) 28.4 Glucose Level 128mg/dL (70-99) Calcium Level 8.8mg/dL (8.5-10.1) Magnesium Level 1.4mg/dL (1.8-2.4) Medications Active Scripts Medications Dose Route/Sig Days Date Category Triamterene-Hctz 37.5-25 Mg Cp (Triamterene/Hydrochlorothiazid) 1 Each Capsule 1 Cap PO DAILY 01/22/17 Reported Senokot (Sennosides) 8.6 Mg Tablet 8.6 Mg PO PRN DAILY PRN 01/22/17 Reported Oxycontin (Oxycodone HCl) 10 Mg Tab.er.12h 10 Mg PO BID 01/22/17 Reported Omeprazole 40 Mg Capsule.dr 40 Mg PO DAILY 01/22/17 Reported Nifedipine Er (Nifedipine) 30 Mg Tablet.er 30 Mg PO DAILY 01/22/17 Reported Thera M Plus Tablet (Multivits,Ca,Minerals/Iron/FA) 1 Each Tablet 1 Each PO DAILY 01/22/17 Reported Metoprolol Tartrate 50 Mg Tablet 50 Mg PO BID 01/22/17 Reported Hydrocodone-Apap 7.5-325 (Hydrocodone Bit/Acetaminophen) 1 Each Tablet 1 Tab PO PRN Q4HRS PRN 01/22/17 Reported Ferrous Sulfate 325 Mg Tablet 1 Tab PO DAILY 01/22/17 Reported Zetia (Ezetimibe) 10 Mg Tablet 10 Mg PO DAILY 01/22/17 Reported Eprosartan Mesylate 600 Mg Tablet 600 Mg PO DAILY 01/22/17 Reported Docusate Sodium 100 Mg Tablet 100 Mg PO DAILY 01/22/17 Reported Cyclobenzaprine Hcl 10 Mg Tablet 10 Mg PO TID 01/22/17 Reported Atorvastatin Calcium 40 Mg Tablet 40 Mg PO HS 01/22/17 Reported Xanax (Alprazolam) 0.25 Mg Tablet 1 Tab PO BID 01/22/17 Reported Impression . 1. Pneumonia, complicated with parapneumonic effusion. 2. Parapneumonic effusion, empyema. 3. Pleurisy secondary to above. 4. Chronic kidney disease. 5. Hypertension. 6. Systemic inflammatory response syndrome. 7. History of deep venous thrombosis, negative venous Dopplers during this admission; ventilation-perfusion scan, low probability for pulmonary embolism. 8. Hiatal hernia. Plan . 1. Continue current broad spectrum antibiotics, per ID 2. Cxr reviewed not much fluid left, NO DRAINAGE will d/c tube 3. Send pleural fluid analysis for routine cultures including cytology, pending CHEMA QUIROZ MD Jan 24, 2017 14:27
[2017-01-24 15:00] VITALS: BP 124/60
[2017-01-24] MEDS ORDERED: MAGNESIUM SULFATE 2GM 50 ML IV ONE (15:00)
--- NOTE | 2017-01-24 15:00 | PDOC ---
PROGRESS NOTES Chief Complaint Chief Complaint 1. RUL PNA, empyema 2. Atelectasis, trace pleural effusions bilateral 3. 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 YOAN on CKD6. 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 GERD, hx DVT - venous doppler are neg, vq low prob PE 7. Dyslipidemia 8. HTN - stable 9. Incidental left renal cyst 10. 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 Overall, pt showing improvement. Is awaiting SNU eval. WBC improved to 10.7 from 14.2. BUN/Cr elevated, but stable; is followed by Dr. German for CKD. Vitals Vitals Vital Signs Date Time Temp Pulse Resp B/P Pulse Ox O2 Delivery O2 Flow Rate FiO2 01/24/17 12:59 98 Nasal Cannula 2.0 01/24/17 11:00 97.9 81 22 105/60 97.9 Physical Exam General: No acute distress Heart: Regular rate Lungs: Clear Abdomen: Normal bowel sounds Extremities: No cyanosis, Normal pulses, Other (mild bilateral lower extremity edema) Skin: No rashes, No breakdown, No significant lesion Labs LABS Laboratory Tests Test 01/24/17 03:55 White Blood Count 10.7x10^3/uL (4.0-11.0) Red Blood Count 3.03x10^6/uL (3.50-5.40) Hemoglobin 9.7g/dL (12.0-15.5) Hematocrit 29.4% (36.0-47.0) Mean Corpuscular Volume 97fL (79-100) Mean Corpuscular Hemoglobin 32pg (25-35) Mean Corpuscular Hemoglobin Concent 33g/dL (31-37) Red Cell Distribution Width 13.4% (11.5-14.5) Platelet Count 286x10^3/uL (140-400) Neutrophils (%) (Auto) 74% (31-73) Lymphocytes (%) (Auto) 8% (24-48) Monocytes (%) (Auto) 16% (0-9) Eosinophils (%) (Auto) 2% (0-3) Basophils (%) (Auto) 0% (0-3) Neutrophils # (Auto) 7.9x10^3uL (1.8-7.7) Lymphocytes # (Auto) 0.8x10^3/uL (1.0-4.8) Monocytes # (Auto) 1.7x10^3/uL (0.0-1.1) Eosinophils # (Auto) 0.3x10^3/uL (0.0-0.7) Basophils # (Auto) 0.0x10^3/uL (0.0-0.2) Sodium Level 134mmol/L (136-145) Potassium Level 4.9mmol/L (3.5-5.1) Chloride Level 99mmol/L (98-107) Carbon Dioxide Level 25mmol/L (21-32) Anion Gap 10 (6-14) Blood Urea Nitrogen 25mg/dL (7-20) Creatinine 1.7mg/dL (0.6-1.0) Estimated GFR (Cockcroft-Gault) 28.4 Glucose Level 128mg/dL (70-99) Calcium Level 8.8mg/dL (8.5-10.1) Magnesium Level 1.4mg/dL (1.8-2.4) Review of Systems Review of Systems denies fever, chills + R back pain near site of chest tube + cough Assessment and Plan Assessmemt and Plan ASSESSMENT: 1. RUL PNA, with possible empyema 2. Atelectasis, trace pleural effusions bilateral 3. 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 YOAN on CKD6. 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 GERD, hx DVT - venous doppler are neg, vq low prob PE 7. Dyslipidemia 8. HTN - stable 9. Incidental left renal cyst 10. 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 Labs Laboratory Tests Test 01/22/17 17:15 01/23/17 10:10 01/24/17 03:55 Body Fluid pH 6.8 Body Fluid Glucose 11mg/dL (.) Body Fluid Total Protein 4.5g/dL (.) Body Fluid Lactate Dehydrogenase 1268IU/L (.) Sodium Level 136mmol/L (136-145) 134mmol/L (136-145) Potassium Level 4.7mmol/L (3.5-5.1) 4.9mmol/L (3.5-5.1) Chloride Level 101mmol/L (98-107) 99mmol/L (98-107) Carbon Dioxide Level 24mmol/L (21-32) 25mmol/L (21-32) Anion Gap 11 (6-14) 10 (6-14) Blood Urea Nitrogen 23mg/dL (7-20) 25mg/dL (7-20) Creatinine 1.6mg/dL (0.6-1.0) 1.7mg/dL (0.6-1.0) Estimated GFR (Cockcroft-Gault) 30.5 28.4 Glucose Level 115mg/dL (70-99) 128mg/dL (70-99) Calcium Level 8.7mg/dL (8.5-10.1) 8.8mg/dL (8.5-10.1) White Blood Count 10.7x10^3/uL (4.0-11.0) Red Blood Count 3.03x10^6/uL (3.50-5.40) Hemoglobin 9.7g/dL (12.0-15.5) Hematocrit 29.4% (36.0-47.0) Mean Corpuscular Volume 97fL (79-100) Mean Corpuscular Hemoglobin 32pg (25-35) Mean Corpuscular Hemoglobin Concent 33g/dL (31-37) Red Cell Distribution Width 13.4% (11.5-14.5) Platelet Count 286x10^3/uL (140-400) Neutrophils (%) (Auto) 74% (31-73) Lymphocytes (%) (Auto) 8% (24-48) Monocytes (%) (Auto) 16% (0-9) Eosinophils (%) (Auto) 2% (0-3) Basophils (%) (Auto) 0% (0-3) Neutrophils # (Auto) 7.9x10^3uL (1.8-7.7) Lymphocytes # (Auto) 0.8x10^3/uL (1.0-4.8) Monocytes # (Auto) 1.7x10^3/uL (0.0-1.1) Eosinophils # (Auto) 0.3x10^3/uL (0.0-0.7) Basophils # (Auto) 0.0x10^3/uL (0.0-0.2) Magnesium Level 1.4mg/dL (1.8-2.4) Laboratory Tests Test 01/24/17 03:55 White Blood Count 10.7x10^3/uL (4.0-11.0) Red Blood Count 3.03x10^6/uL (3.50-5.40) Hemoglobin 9.7g/dL (12.0-15.5) Hematocrit 29.4% (36.0-47.0) Mean Corpuscular Volume 97fL (79-100) Mean Corpuscular Hemoglobin 32pg (25-35) Mean Corpuscular Hemoglobin Concent 33g/dL (31-37) Red Cell Distribution Width 13.4% (11.5-14.5) Platelet Count 286x10^3/uL (140-400) Neutrophils (%) (Auto) 74% (31-73) Lymphocytes (%) (Auto) 8% (24-48) Monocytes (%) (Auto) 16% (0-9) Eosinophils (%) (Auto) 2% (0-3) Basophils (%) (Auto) 0% (0-3) Neutrophils # (Auto) 7.9x10^3uL (1.8-7.7) Lymphocytes # (Auto) 0.8x10^3/uL (1.0-4.8) Monocytes # (Auto) 1.7x10^3/uL (0.0-1.1) Eosinophils # (Auto) 0.3x10^3/uL (0.0-0.7) Basophils # (Auto) 0.0x10^3/uL (0.0-0.2) Sodium Level 134mmol/L (136-145) Potassium Level 4.9mmol/L (3.5-5.1) Chloride Level 99mmol/L (98-107) Carbon Dioxide Level 25mmol/L (21-32) Anion Gap 10 (6-14) Blood Urea Nitrogen 25mg/dL (7-20) Creatinine 1.7mg/dL (0.6-1.0) Estimated GFR (Cockcroft-Gault) 28.4 Glucose Level 128mg/dL (70-99) Calcium Level 8.8mg/dL (8.5-10.1) Magnesium Level 1.4mg/dL (1.8-2.4) Microbiology 01/22/17 Anaerobic/Aerobic Culture, Resulted Pending 01/22/17 Anaerobic Culture Result 1 (STEWART), Resulted Pending 01/22/17 Aerobic Culture - Preliminary, Resulted 01/22/17 Aerobic Culture Result 1 (STEWART) - Preliminary, Resulted Medications Current Medications Ondansetron HCl (Zofran) 4 mg PRN Q6HRS PRN IV NAUSEA/VOMITING, 1ST CHOICE Last administered on 01/24/17 09:18; Start 01/22/17 at 11:15 Prochlorperazine Edisylate (Compazine) 10 mg PRN Q6HRS PRN IV NAUSEA/VOMITING, 2ND CHOICE; Start 01/22/17 at 11:15 Prochlorperazine (Compazine) 25 mg PRN Q12HR PRN WA NAUSEA/VOMITING; Start 01/22 at 11:15 Al Hydrox/Mg Hydrox/Simethicone (Mylanta Plus Xs) 30 ml PRN Q3HRS PRN PO HEARTBURN / GAS; Start 01/22/17 at 11:15 Calcium Carbonate/ Glycine (Tums) 500 mg PRN Q3HRS PRN PO UPSET STOMACH; Start 01/22/17 at 11:15 Morphine Sulfate 1 mg PRN Q2HR PRN IV PAIN Last administered on 01/24/17 01:03 ; Start 01/22/17 at 11:15 Acetaminophen/ Hydrocodone Bitart (Lortab 5/325) 1 tab PRN Q4HRS PRN PO MODERATE PAIN; Start 01/22/17 at 11:15 Acetaminophen (Tylenol) 650 mg PRN Q6HRS PRN PO MILD PAIN / TEMP; Start at 11:15 Ibuprofen (Motrin) 400 mg PRN Q6HRS PRN PO MILD PAIN; Start 01/22/17 at 11:15 Docusate Sodium (Colace) 100 mg BID PO Last administered on 01/24/17 08:59; Start 01/22/17 at 12:00 Magnesium Hydroxide (Milk Of Magnesia) 2,400 mg PRN Q12HR PRN PO CONSTIPATION; Start 01/22/17 at 11:15 Lactulose 20 gm PRN Q12HR PRN PO CONSTIPATION; Start 01/22/17 at 11:15 Bisacodyl (Dulcolax Supp) 10 mg PRN DAILY PRN [place] CONSTIPATION; Start 01/22/17 at 11:15 Enoxaparin Sodium 40 mg 40 mg Q24H SQ ; Start 01/22/17 at 16:00; Stop 01/22/17 at 16:00; Status DC Vancomycin HCl 1 gm/Sodium Chloride 250 ml @ 250 mls/hr Q24H IV ; Start at 11:15; Status UNV Piperacillin Sod/ Tazobactam Sod/ Sodium Chloride (Zosyn/Iv Sodium Chloride 0.9 % 50ml) 50 ml @ 100 mls/hr Q6HRS IV Last administered on 01/24/17 11:24; Start 01/22/17 at 12:00 Guaifenesin (Robitussin Dm) 10 ml PRN Q6HRS PRN PO COUGH; Start 01/22/17 at 11: 15 Vancomycin HCl 1 each 1 each PRN DAILY PRN MC SEE COMMENTS Last administered on 01/23/17 10:59; Start 01/22/17 at 11:30; Stop 01/23/17 at 15:13; Status DC Vancomycin HCl/ Sodium Chloride (Iv Sodium Chloride 0.9% 500ml Bag) 500 ml @ 250 mls/hr 1X ONCE IV ; Start 01/22/17 at 12:00; Stop 01/22/17 at 13:59; Status Cancel Alprazolam (Xanax) 0.25 mg BID PO Last administered on 01/24/17 08:59; Start at 12:00 Atorvastatin Calcium (Lipitor) 40 mg HS PO Last administered on 01/23/17 21:26 ; Start 01/22/17 at 21:00 Cyclobenzaprine HCl (Flexeril) 10 mg TID PO Last administered on 01/24/17 08:59 ; Start 01/22/17 at 14:00 EZETIMIBE (Zetia) 10 mg DAILY PO Last administered on 01/24/17 08:59; Start 01/22/17 at 12:00 Ferrous Sulfate (Feosol) 325 mg DAILYWBKFT PO Last administered on 01/24/17 08: 58; Start 01/22/17 at 12:00 Acetaminophen/ Hydrocodone Bitart (Lortab 7.5/325) 1 tab PRN Q4HRS PRN PO SEVERE PAIN Last administered on 01/24/17 01:38; Start 01/22/17 at 12:00 Metoprolol Tartrate (Lopressor) 50 mg BID PO Last administered on 01/24/17 08: 55; Start 01/22/17 at 12:00 Multivitamins/ Calcium (Thera M Plus) 1 tab DAILY PO Last administered on 08:59; Start 01/22/17 at 12:00 Oxycodone HCl (Oxycontin) 10 mg BID PO Last administered on 01/24/17 08:59; Start 01/22/17 at 12:00 Sennosides (Senna) 8.6 mg PRN DAILY PRN PO CONSTIPATION; Start 01/22/17 at 12:00 Docusate Sodium (Colace) 100 mg DAILY PO ; Start 01/22/17 at 12:15; Status Cancel Losartan Potassium (Cozaar) 50 mg DAILY PO Last administered on 01/24/17 08:59 ; Start 01/23/17 at 09:00 Nifedipine (Procardia Xl) 30 mg DAILY PO Last administered on 01/24/17 08:54; Start 01/22/17 at 12:00 Pantoprazole Sodium (Protonix) 40 mg DAILYAC PO Last administered on 01/24/17 09:00; Start 01/22/17 at 12:30 Triamterene/HCTZ (Maxzide 37.5/ 25mg) 1 tab DAILY PO Last administered on 08:55; Start 01/22/17 at 12:30 Piperacillin Sod/ Tazobactam Sod (Zosyn Per Pharmacy) 1 each PRN DAILY PRN MC SEE COMMENTS; Start 01/22/17 at 12:30; Stop 01/22/17 at 12:30; Status DC Heparin Sodium (Porcine) 5000 unit 5,000 unit Q8HRS SQ Last administered on 01/24 14:51; Start 01/22/17 at 14:00 Vancomycin HCl/ Sodium Chloride (Iv Sodium Chloride 0.9% 250ml) 250 ml @ 250 mls/hr Q48H IV ; Start 01/23/17 at 21:00; Stop 01/23/17 at 21:00; Status DC Vancomycin HCl 1 each 1X ONCE MC ; Start 01/25/17 at 20:30; Stop 01/25/17 at 20: 30; Status DC Lidocaine/Sodium Bicarbonate (Buffered Lidocaine 1%) 20 ml STK-MED ONCE IJ ; Start 01/22/17 at 16:37; Stop 01/22/17 at 16:38; Status DC Fentanyl Citrate (Fentanyl 2ml Vial) 100 mcg STK-MED ONCE .ROUTE ; Start at 16:37; Stop 01/22/17 at 16:38; Status DC Midazolam HCl 2 mg 2 mg STK-MED ONCE .ROUTE ; Start 01/22/17 at 16:38; Stop at 16:39; Status DC Alteplase, Recombinant/ Sodium Chloride (Cathflo/Iv Sodium Chloride 0.9% 50ml) 50 ml @ 30 mls/hr 1X ONCE IV Last administered on 01/22/17 18:01; Start at 18:00; Stop 01/22/17 at 19:39; Status DC Lidocaine/Sodium Bicarbonate (Buffered Lidocaine 1%) 3 ml 1X ONCE IJ Last administered on 01/22/17 17:54; Start 01/22/17 at 18:00; Stop 01/22/17 at 18:01; Status DC Midazolam HCl (Versed) 0.5 mg 1X ONCE IV Last administered on 01/22/17 17:54; Start 01/22/17 at 18:00; Stop 01/22/17 at 18:01; Status DC Fentanyl Citrate (Fentanyl 2ml Vial) 100 mcg 1X ONCE IV Last administered on 17:55; Start 01/22/17 at 18:00; Stop 01/22/17 at 18:01; Status DC Morphine Sulfate 2 mg 2 mg 1X ONCE IV ; Start 01/22/17 at 20:15; Stop 3/3/17 at 20:24; Status DC Diltiazem HCl/ Dextrose (Cardizem) 125 ml @ 0 mls/hr CONT PRN IV SEE I/O RECORD ; Start 01/22/17 at 20:15; Stop 01/22/17 at 20:38; Status DC Diltiazem HCl 20 mg 20 mg 1X ONCE IVP ; Start 01/22/17 at 20:15; Stop 01/22/17 at 20:38; Status DC Magnesium Sulfate/ Dextrose (Magnesium Sulfate PREMIX 2GM) 50 ml @ 25 mls/hr 1X ONCE IV ; Start 01/24/17 at 15:00; Stop 01/24/17 at 16:59 Active Scripts Active Reported Triamterene-Hctz 37.5-25 Mg Cp (Triamterene/Hydrochlorothiazid) 1 Each Capsule 1 Cap PO DAILY Senokot (Sennosides) 8.6 Mg Tablet 8.6 Mg PO PRN DAILY PRN Oxycontin (Oxycodone HCl) 10 Mg Tab.er.12h 10 Mg PO BID Omeprazole 40 Mg Capsule.dr 40 Mg PO DAILY Nifedipine Er (Nifedipine) 30 Mg Tablet.er 30 Mg PO DAILY Thera M Plus Tablet (Multivits,Ca,Minerals/Iron/FA) 1 Each Tablet 1 Each PO DAILY Metoprolol Tartrate 50 Mg Tablet 50 Mg PO BID Hydrocodone-Apap 7.5-325 (Hydrocodone Bit/Acetaminophen) 1 Each Tablet 1 Tab PO PRN Q4HRS PRN Ferrous Sulfate 325 Mg Tablet 1 Tab PO DAILY Zetia (Ezetimibe) 10 Mg Tablet 10 Mg PO DAILY Eprosartan Mesylate 600 Mg Tablet 600 Mg PO DAILY Docusate Sodium 100 Mg Tablet 100 Mg PO DAILY Cyclobenzaprine Hcl 10 Mg Tablet 10 Mg PO TID Atorvastatin Calcium 40 Mg Tablet 40 Mg PO HS Xanax (Alprazolam) 0.25 Mg Tablet 1 Tab PO BID Vitals/I & O Vital Sign - Last 24 Hours 01/23/17 01/23/17 01/23/17 01/23/17 15:00 17:23 19:00 20:00 Temp 98.2 98.4 98.2 98.4 Pulse 88 100 Resp 20 20 B/P 112/67 134/57 Pulse Ox 100 100 100 O2 Delivery Room Air Nasal Cannula Room Air Nasal Cannula O2 Flow Rate 3.0 3.0 2.0 2.0 01/23/17 01/23/17 01/23/17 01/24/17 21:26 21:27 23:00 01:03 Temp 98.1 98.1 Pulse 98 92 Resp 20 18 B/P 131/60 119/52 Pulse Ox 100 97 97 O2 Delivery Nasal Cannula Room Air Nasal Cannula O2 Flow Rate 2.0 2.0 2.0 01/24/17 01/24/17 01/24/17 01/24/17 01:27 01:38 02:38 03:00 Temp 99.7 99.7 Pulse 90 Resp 18 18 20 B/P 128/84 Pulse Ox 96 97 96 96 O2 Delivery Nasal Cannula Nasal Cannula Nasal Cannula Room Air O2 Flow Rate 2.0 2.0 2.0 2.0 01/24/17 01/24/17 01/24/17 01/24/17 07:00 08:00 08:54 08:55 Temp 97.8 97.8 Pulse 91 91 90 Resp 20 B/P 123/64 123/64 128/84 Pulse Ox 98 O2 Delivery Nasal Cannula Nasal Cannula O2 Flow Rate 2.0 2.0 01/24/17 01/24/17 01/24/17 01/24/17 08:59 08:59 11:00 12:59 Temp 97.9 97.9 Pulse 90 81 Resp 22 B/P 128/84 105/60 Pulse Ox 96 98 98 O2 Delivery Nasal Cannula Nasal Cannula Nasal Cannula O2 Flow Rate 2.0 2.0 2.0 Intake and Output 01/23/17 01/23/17 01/24/17 15:00 23:00 07:00 Intake Total 640 ml 180 ml Output Total 450 ml 1000 ml Balance 190 ml -820 ml JANAE JENNINGS III DO Jan 24, 2017 14:59
--- NOTE | 2017-01-24 15:33 | RAD ---
Examination: Single frontal view of the chest. History: History of chest tube placement Comparison: 01/23/2017 Findings Low lung volumes and technique accentuates heart size and pulmonary vascularity. Right-sided chest tube is unchanged. Patchy right lung base airspace opacity likely atelectasis or infiltrate has mildly decreased. No obvious pneumothorax identified. Impression: Right-sided chest tube is unchanged. Mild right lung base airspace opacity has mildly decreased.
[2017-01-24 19:00] VITALS: BP 126/60
[2017-01-24] MEDS: ATORVASTATIN CALCIUM 40 MG TABLET. PO SCH (21:21)
[2017-01-24 23:00] VITALS: BP 116/53
[2017-01-25] MEDS: PIPERACILLIN/TAZOBACTAM 2.25 GM in IV NORMAL SALINE 50ML 50 ML IV SCH ×5 (00:36→22:35)
[2017-01-25 03:00] VITALS: BP 123/58
[2017-01-25 06:05] LABS: BASO % 0 % (0-3); EOS % 2 % (0-3); HEMATOCRIT 28.1 % (36.0-47.0); HEMOGLOBIN 9.2 g/dL (12.0-15.5); LYMPH # 0.9 x10^3/uL (1.0-4.8); LYMPH % 7 % (24-48); MEAN CORPUSCULAR HEMOGLOBIN 32 pg (25-35); MEAN CORPUSCULAR HGB CONC 33 g/dL (31-37); MEAN CORPUSCULAR VOLUME 97 fL (79-100); MONO % 14 % (0-9); NEUT % 77 % (31-73); PLATELET COUNT 311 x10^3/uL (140-400); RED BLOOD COUNT 2.91 x10^6/uL (3.50-5.40); RED CELL DISTRIBUTION WIDTH 13.3 % (11.5-14.5); WHITE BLOOD COUNT 12.5 x10^3/uL (4.0-11.0)
[2017-01-25] MEDS: HEPARIN PF for SUB-Q USE 5,000 UNIT/0.5 ML VIAL. SQ SCH ×3 (06:14→20:45)
[2017-01-25 06:33] LABS: CREATININE 1.6 mg/dL (0.6-1.0); GFR 30.5; POTASSIUM 5.1 mmol/L (3.5-5.1)
[2017-01-25 07:00] VITALS: BP 121/70
--- NOTE | 2017-01-25 07:05 | CONS ---
DATE OF CONSULTATION: 01/22/2017 REQUESTING PHYSICIAN: Dr. Chung. REASON FOR CONSULTATION: Possible empyema. HISTORY OF PRESENT ILLNESS: The patient is an 86-year-old female, who was transferred from [facility] [place] for possible empyema. According to the patient, she presented to [facility] ER on 01/19/2017 with back pain radiating to the shoulder area. She was not feeling well and had some chest discomfort as well. She does not recall having any fevers, chills or sweats. She was found to have elevated white blood cell count at 14,700. A chest x-ray revealed mild atelectasis/infiltrate and a small amount of pleural fluid on the right. 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 She was initially on Rocephin and azithromycin for pneumonia, which were later changed to vancomycin and Zosyn prior to transfer. The patient continues not to feel well. She says this is the worst that she has felt in a very long time. She feels sleepy and complaining of generalized weakness. She recently had a right-sided chest tube placement. Fluid analysis is pending. No organisms seen on Gram stain. She denies cough or shortness of air. She is requiring oxygen supplementation of 3 liters. She denies recent hospitalizations or antibiotics within the last several months. Denies contacts with persons with similar symptoms. Denies headache, sinus congestion or sore throat. Influenza screen as well as strep antigen were negative. PAST MEDICAL HISTORY: Enterococcus faecalis, ampicillin sensitive UTI, chronic kidney disease, hypertension, hyperlipidemia, gastroesophageal reflux disease, DVT, history of breast cancer and uterine cancer and arthritis. PAST SURGICAL HISTORY: Cholecystectomy, bilateral total knee replacements, hysterectomy, IVC filter and appendectomy. FAMILY HISTORY: Positive for coronary artery disease. SOCIAL HISTORY: The patient is a . She lives at home. Nonsmoker. ALLERGIES: TETRACYCLINE, causing a rash, years ago. MEDICATIONS: Include vancomycin and Zosyn. Other medications are available and have been reviewed on the MAR. REVIEW OF SYSTEMS: In addition to what was mentioned in the HPI, the patient complains of constipation. She has had few small "lio" within the last week. She denies bloating, cramping or abdominal pain. Denies dysuria, frequency or urgency; however, she does have to stand to empty her bladder, which she has had to do for the past several years. She denies nausea or vomiting. Denies muscle aches or joint pains. Denies rash. She is not very hungry. Denies cough. PHYSICAL EXAMINATION: GENERAL: female, lying in bed, in no apparent distress. VITAL SIGNS: Temperature is 97.7, blood pressure 116/53, heart rate 77, respiratory rate 24, pulse oximetry 96% on 2 liters nasal cannula. Weight is 159.56 pounds. HEENT: Pupils are equally round, reactive. Normal conjunctivae. Oral mucosa is pink and dry. NECK: Supple, no adenopathy present. LUNGS: Diminished aeration in the right lower bases. Chest tube intact. Nonlabored. HEART: Normal S1 and S2. ABDOMEN: Bowel sounds are present, soft, nontender. EXTREMITIES: No gross edema or cyanosis. HAL hose on. SKIN: Without rash. Warm to touch. NEUROLOGIC: The patient was sleepy, arouses easily to name. Follows commands. Orientated. LABORATORY DATA: Today's WBC 14.2 from 20,000, hemoglobin 10.4, platelet count 280,000. Electrolytes are unremarkable. Creatinine 1.6, BUN 23, glucose 115, albumin 2.2. Pleural fluid analysis pending. No organisms seen on Gram stain (3-3). IMAGING: Per HPI. In addition, CT abdomen/pelvis showed dilated common duct and intrahepatic bile ducts; bilateral renal cysts; no ureter calculus or hydronephrosis; multiple phleboliths in the pelvis. A followup abdominal ultrasound showed no evidence of duct dilatation due to technical factors. A V/Q scan was negative for PE. Ultrasound of lower extremities negative for DVT. IMPRESSION AND RECOMMENDATIONS: 1. Pneumonia. 2. Parapneumonic effusion with possible empyema. 3. Leukocytosis. 4. Chronic kidney disease. PLAN: Continue the vancomycin and Zosyn. Await pleural fluid analysis and culture. Monitor labs. Supportive care. Thank you Dr. Chung for asking us to participate in this patient's care. Should you have further questions or concerns, please call. GABO HERNANDEZ MD DR: Kira JOB#: [id number] / [id number]
--- NOTE | 2017-01-25 08:26 | RAD ---
EXAM: Chest one view. HISTORY: Chest tube removal. COMPARISON: 01/24/2017. FINDINGS: A frontal view of the chest is obtained. The right chest drain has been removed in the interval. There is no appreciable pneumothorax. A small right pleural effusion is likely present. The inspiration is small with mild atelectasis on the right greater than left. The heart is not enlarged. There is a calcified granuloma in the right apex. IMPRESSION: 1. No appreciable pneumothorax status post chest tube removal. 2. Small right pleural effusion with mild, improved right atelectasis.
[2017-01-25] MEDS: TRIAMTERENE/HCTZ 37.5/25MG TABLET. PO SCH (09:05)
[2017-01-25] MEDS: LOSARTAN POTASSIUM 50 MG TABLET. PO SCH (09:06)
[2017-01-25] MEDS: DOCUSATE SODIUM 100 MG CAPSULE PO SCH ×2 (09:06→20:41)
[2017-01-25] MEDS: FERROUS SULFATE 325 MG TABLET PO SCH (09:06)
[2017-01-25] MEDS: EZETIMIBE 10 MG TABLET PO SCH (09:06)
[2017-01-25] MEDS: METOPROLOL TART IMMED RELEASE 50 MG TABLET PO SCH ×2 (09:07→20:41)
[2017-01-25] MEDS: ALPRAZOLAM 0.25 MG TABLET PO SCH ×2 (09:07→20:45)
[2017-01-25] MEDS: MULTIVITAMIN with MINERAL TABLET. PO SCH (09:07)
[2017-01-25] MEDS: NIFEDIPINE ER 30 MG TAB.ER.24H PO SCH (09:07)
[2017-01-25] MEDS: PANTOPRAZOLE 40 MG TABLET. PO SCH (09:08)
[2017-01-25] MEDS: CYCLOBENZAPRINE 10 MG TABLET. PO SCH ×3 (09:08→20:41)
[2017-01-25] MEDS: OXYCODONE ER 10 MG TAB.ER.12H. PO SCH (09:13)
--- NOTE | 2017-01-25 09:49 | PDOC ---
Infectious Disease Note Subjective Subjective Not feeling well Requesting a cup of coffee with 2 creamers Constipated. Small cough and right-side chest discomfort. ROS ROS GEN: Denies fevers, chills, sweats HEENT: Denies blurred vision, sore throat CV: Denies chest pain RESP: Denies shortness of air, cough GI: Denies n/v/d NEURO: Denies confusion, dizziness MSK: Denies weakness, joint pain/swelling Vital Sign Vital Signs Vital Signs Date Time Temp Pulse Resp B/P Pulse Ox O2 Delivery O2 Flow Rate FiO2 01/25/17 09:13 95 Nasal Cannula 2.0 01/25/17 09:07 89 121/70 01/25/17 07:00 97.9 19 97.9 Physical Exam PHYSICAL EXAM GENERAL: NAD, Alert HEENT: PERRL, OC/OP NECK: Supple, no JVD, no LN LUNGS: Clear HEART: S1S2, no gallop, no murmur ABD: Soft, NT, no organomegaly, no rebound EXT: No edema, no cyanosis DEMAND GENERATOR MANAGER: Alert, oriented x 3, no focal neurologic deficit SKIN: No rash IV: ok Labs Lab Laboratory Tests Test 01/24/17 20:52 01/25/17 05:10 Glucose (Fingerstick) 157mg/dL (70-99) White Blood Count 12.5x10^3/uL (4.0-11.0) Red Blood Count 2.91x10^6/uL (3.50-5.40) Hemoglobin 9.2g/dL (12.0-15.5) Hematocrit 28.1% (36.0-47.0) Mean Corpuscular Volume 97fL (79-100) Mean Corpuscular Hemoglobin 32pg (25-35) Mean Corpuscular Hemoglobin Concent 33g/dL (31-37) Red Cell Distribution Width 13.3% (11.5-14.5) Platelet Count 311x10^3/uL (140-400) Neutrophils (%) (Auto) 77% (31-73) Lymphocytes (%) (Auto) 7% (24-48) Monocytes (%) (Auto) 14% (0-9) Eosinophils (%) (Auto) 2% (0-3) Basophils (%) (Auto) 0% (0-3) Neutrophils # (Auto) 9.6x10^3uL (1.8-7.7) Lymphocytes # (Auto) 0.9x10^3/uL (1.0-4.8) Monocytes # (Auto) 1.7x10^3/uL (0.0-1.1) Eosinophils # (Auto) 0.3x10^3/uL (0.0-0.7) Basophils # (Auto) 0.0x10^3/uL (0.0-0.2) Sodium Level 137mmol/L (136-145) Potassium Level 5.1mmol/L (3.5-5.1) Chloride Level 102mmol/L (98-107) Carbon Dioxide Level 25mmol/L (21-32) Anion Gap 10 (6-14) Blood Urea Nitrogen 23mg/dL (7-20) Creatinine 1.6mg/dL (0.6-1.0) Estimated GFR (Cockcroft-Gault) 30.5 Glucose Level 106mg/dL (70-99) Calcium Level 9.0mg/dL (8.5-10.1) Magnesium Level 2.2mg/dL (1.8-2.4) Objective Assessment Pneumonia Parapneumonic effusion, empyema suspected -Pleural analysis: pH 6.8, glu 11, T protein 4.5, LDH 1268. cytology pending -s/p CT placement, 01/22. Leukocytosis, improved CKD Plan Plan of Care Continue Zosyn for now, soon to change to po augmentin Monitor lab values f/u cultures/cytology Supportive care GABO HERNANDEZ MD Jan 25, 2017 09:49
[2017-01-25 10:42] VITALS: BP 129/57
[2017-01-25] MEDS ORDERED: MAGNESIUM HYDROXIDE 2,400 MG/30 ML ORAL.SUSP. PO PRN (11:30)
[2017-01-25] MEDS ORDERED: SENNOSIDES/DOCUSATE 8.6/50MG TABLET. PO SCH (12:00)
[2017-01-25] MEDS ORDERED: DOCUSATE SODIUM 100 MG CAPSULE PO SCH (12:00)
--- NOTE | 2017-01-25 12:32 | PDOC ---
PULMONARY PROGRESS NOTES Subjective pt feel better less pleuritic pain Vitals Vital Signs Date Time Temp Pulse Resp B/P Pulse Ox O2 Delivery O2 Flow Rate FiO2 01/25/17 10:42 97.5 90 19 129/57 97 Nasal Cannula 2.0 97.5 ROS: No Nausea, No Abdominal Pain, No Increase Cough General: Alert Lungs: Clear Cardiovascular: S1, S2 Abdomen: Soft, Non-tender Neuro Exam: Alert Extremities: No Edema Skin: Warm Labs Laboratory Tests Test 01/24/17 03:55 01/24/17 20:52 01/25/17 05:10 White Blood Count 10.7x10^3/uL (4.0-11.0) 12.5x10^3/uL (4.0-11.0) Red Blood Count 3.03x10^6/uL (3.50-5.40) 2.91x10^6/uL (3.50-5.40) Hemoglobin 9.7g/dL (12.0-15.5) 9.2g/dL (12.0-15.5) Hematocrit 29.4% (36.0-47.0) 28.1% (36.0-47.0) Mean Corpuscular Volume 97fL (79-100) 97fL (79-100) Mean Corpuscular Hemoglobin 32pg (25-35) 32pg (25-35) Mean Corpuscular Hemoglobin Concent 33g/dL (31-37) 33g/dL (31-37) Red Cell Distribution Width 13.4% (11.5-14.5) 13.3% (11.5-14.5) Platelet Count 286x10^3/uL (140-400) 311x10^3/uL (140-400) Neutrophils (%) (Auto) 74% (31-73) 77% (31-73) Lymphocytes (%) (Auto) 8% (24-48) 7% (24-48) Monocytes (%) (Auto) 16% (0-9) 14% (0-9) Eosinophils (%) (Auto) 2% (0-3) 2% (0-3) Basophils (%) (Auto) 0% (0-3) 0% (0-3) Neutrophils # (Auto) 7.9x10^3uL (1.8-7.7) 9.6x10^3uL (1.8-7.7) Lymphocytes # (Auto) 0.8x10^3/uL (1.0-4.8) 0.9x10^3/uL (1.0-4.8) Monocytes # (Auto) 1.7x10^3/uL (0.0-1.1) 1.7x10^3/uL (0.0-1.1) Eosinophils # (Auto) 0.3x10^3/uL (0.0-0.7) 0.3x10^3/uL (0.0-0.7) Basophils # (Auto) 0.0x10^3/uL (0.0-0.2) 0.0x10^3/uL (0.0-0.2) Sodium Level 134mmol/L (136-145) 137mmol/L (136-145) Potassium Level 4.9mmol/L (3.5-5.1) 5.1mmol/L (3.5-5.1) Chloride Level 99mmol/L (98-107) 102mmol/L (98-107) Carbon Dioxide Level 25mmol/L (21-32) 25mmol/L (21-32) Anion Gap 10 (6-14) 10 (6-14) Blood Urea Nitrogen 25mg/dL (7-20) 23mg/dL (7-20) Creatinine 1.7mg/dL (0.6-1.0) 1.6mg/dL (0.6-1.0) Estimated GFR (Cockcroft-Gault) 28.4 30.5 Glucose Level 128mg/dL (70-99) 106mg/dL (70-99) Calcium Level 8.8mg/dL (8.5-10.1) 9.0mg/dL (8.5-10.1) Magnesium Level 1.4mg/dL (1.8-2.4) 2.2mg/dL (1.8-2.4) Glucose (Fingerstick) 157mg/dL (70-99) Laboratory Tests Test 01/24/17 20:52 01/25/17 05:10 Glucose (Fingerstick) 157mg/dL (70-99) White Blood Count 12.5x10^3/uL (4.0-11.0) Red Blood Count 2.91x10^6/uL (3.50-5.40) Hemoglobin 9.2g/dL (12.0-15.5) Hematocrit 28.1% (36.0-47.0) Mean Corpuscular Volume 97fL (79-100) Mean Corpuscular Hemoglobin 32pg (25-35) Mean Corpuscular Hemoglobin Concent 33g/dL (31-37) Red Cell Distribution Width 13.3% (11.5-14.5) Platelet Count 311x10^3/uL (140-400) Neutrophils (%) (Auto) 77% (31-73) Lymphocytes (%) (Auto) 7% (24-48) Monocytes (%) (Auto) 14% (0-9) Eosinophils (%) (Auto) 2% (0-3) Basophils (%) (Auto) 0% (0-3) Neutrophils # (Auto) 9.6x10^3uL (1.8-7.7) Lymphocytes # (Auto) 0.9x10^3/uL (1.0-4.8) Monocytes # (Auto) 1.7x10^3/uL (0.0-1.1) Eosinophils # (Auto) 0.3x10^3/uL (0.0-0.7) Basophils # (Auto) 0.0x10^3/uL (0.0-0.2) Sodium Level 137mmol/L (136-145) Potassium Level 5.1mmol/L (3.5-5.1) Chloride Level 102mmol/L (98-107) Carbon Dioxide Level 25mmol/L (21-32) Anion Gap 10 (6-14) Blood Urea Nitrogen 23mg/dL (7-20) Creatinine 1.6mg/dL (0.6-1.0) Estimated GFR (Cockcroft-Gault) 30.5 Glucose Level 106mg/dL (70-99) Calcium Level 9.0mg/dL (8.5-10.1) Magnesium Level 2.2mg/dL (1.8-2.4) Medications Active Scripts Medications Dose Route/Sig Days Date Category Triamterene-Hctz 37.5-25 Mg Cp (Triamterene/Hydrochlorothiazid) 1 Each Capsule 1 Cap PO DAILY 01/22/17 Reported Senokot (Sennosides) 8.6 Mg Tablet 8.6 Mg PO PRN DAILY PRN 01/22/17 Reported Oxycontin (Oxycodone HCl) 10 Mg Tab.er.12h 10 Mg PO BID 01/22/17 Reported Omeprazole 40 Mg Capsule.dr 40 Mg PO DAILY 01/22/17 Reported Nifedipine Er (Nifedipine) 30 Mg Tablet.er 30 Mg PO DAILY 01/22/17 Reported Thera M Plus Tablet (Multivits,Ca,Minerals/Iron/FA) 1 Each Tablet 1 Each PO DAILY 01/22/17 Reported Metoprolol Tartrate 50 Mg Tablet 50 Mg PO BID 01/22/17 Reported Hydrocodone-Apap 7.5-325 (Hydrocodone Bit/Acetaminophen) 1 Each Tablet 1 Tab PO PRN Q4HRS PRN 01/22/17 Reported Ferrous Sulfate 325 Mg Tablet 1 Tab PO DAILY 01/22/17 Reported Zetia (Ezetimibe) 10 Mg Tablet 10 Mg PO DAILY 01/22/17 Reported Eprosartan Mesylate 600 Mg Tablet 600 Mg PO DAILY 01/22/17 Reported Docusate Sodium 100 Mg Tablet 100 Mg PO DAILY 01/22/17 Reported Cyclobenzaprine Hcl 10 Mg Tablet 10 Mg PO TID 01/22/17 Reported Atorvastatin Calcium 40 Mg Tablet 40 Mg PO HS 01/22/17 Reported Xanax (Alprazolam) 0.25 Mg Tablet 1 Tab PO BID 01/22/17 Reported Impression . 1. Pneumonia, complicated with parapneumonic effusion. 2. Parapneumonic effusion, suspected empyema. 3. Pleurisy secondary to above. 4. Chronic kidney disease. 5. Hypertension. 6. Systemic inflammatory response syndrome. 7. History of deep venous thrombosis, negative venous Dopplers during this admission; ventilation-perfusion scan, low probability for pulmonary embolism. 8. Hiatal hernia. Plan . 1. Continue current broad spectrum antibiotics, per ID 2. Cxr reviewed not much fluid left, tube removed 01/25 3. pleural fluid analysis for routine cultures ,so far no growth LANDY HWANG MD Jan 25, 2017 12:32
--- NOTE | 2017-01-25 12:53 | PDOC ---
CARDIO Progress Notes Date and Time Date of Service 01/25/17 Time of Evaluation 1000 Subjective Subjective: No Chest Pain, No shortness of breath, Other (drowsy ) Vitals Vitals Vital Signs Date Time Temp Pulse Resp B/P Pulse Ox O2 Delivery O2 Flow Rate FiO2 01/25/17 10:42 97.5 90 19 129/57 97 Nasal Cannula 2.0 97.5 Weight Weight [ ] Input and Output Intake and Output Intake and Output 01/25/17 07:00 Intake Total 710 ml Output Total 250 ml Balance 460 ml Intake Oral 660 ml IV Total 50 ml Output Urine Total 250 ml # Voids 4 Laboratory Labs Laboratory Tests Test 01/24/17 20:52 01/25/17 05:10 Glucose (Fingerstick) 157mg/dL (70-99) White Blood Count 12.5x10^3/uL (4.0-11.0) Red Blood Count 2.91x10^6/uL (3.50-5.40) Hemoglobin 9.2g/dL (12.0-15.5) Hematocrit 28.1% (36.0-47.0) Mean Corpuscular Volume 97fL (79-100) Mean Corpuscular Hemoglobin 32pg (25-35) Mean Corpuscular Hemoglobin Concent 33g/dL (31-37) Red Cell Distribution Width 13.3% (11.5-14.5) Platelet Count 311x10^3/uL (140-400) Neutrophils (%) (Auto) 77% (31-73) Lymphocytes (%) (Auto) 7% (24-48) Monocytes (%) (Auto) 14% (0-9) Eosinophils (%) (Auto) 2% (0-3) Basophils (%) (Auto) 0% (0-3) Neutrophils # (Auto) 9.6x10^3uL (1.8-7.7) Lymphocytes # (Auto) 0.9x10^3/uL (1.0-4.8) Monocytes # (Auto) 1.7x10^3/uL (0.0-1.1) Eosinophils # (Auto) 0.3x10^3/uL (0.0-0.7) Basophils # (Auto) 0.0x10^3/uL (0.0-0.2) Sodium Level 137mmol/L (136-145) Potassium Level 5.1mmol/L (3.5-5.1) Chloride Level 102mmol/L (98-107) Carbon Dioxide Level 25mmol/L (21-32) Anion Gap 10 (6-14) Blood Urea Nitrogen 23mg/dL (7-20) Creatinine 1.6mg/dL (0.6-1.0) Estimated GFR (Cockcroft-Gault) 30.5 Glucose Level 106mg/dL (70-99) Calcium Level 9.0mg/dL (8.5-10.1) Magnesium Level 2.2mg/dL (1.8-2.4) Microbiology Micro Microbiology 01/22/17 Anaerobic/Aerobic Culture - Preliminary, Resulted 01/22/17 Anaerobic Culture Result 1 (STEWART) - Preliminary, Resulted 01/22/17 Aerobic Culture - Preliminary, Resulted 01/22/17 Aerobic Culture Result 1 (STEWART) - Preliminary, Resulted Physical Exam HEENT: Neck Supple W Full Motion Chest: Symmetric LUNGS: Clear to Auscultation Heart: S1S2, RRR Abdomen: Soft N/T Extremities: No Edema, No Calf Tenderness Neurology: alert, oriented, follow commands Assessment Assessment 1. PAFIB with RVR maintaining SR. Continue with BB for rate control. not ideal a/c candidate with recent falls. Add ASA for stroke prophylaxis 2. Pneumonia/ suspected empyema management per pulmonary 3. Chest pain pleuritic in nature. Likely secondary to above. 4. Hypertension well-controlled. 5. CAD stable. CP free. continue secondary prevention recommend outpatient MPI 6. Chronic kidney disease. AMBER JOYNER APRN Jan 25, 2017 12:53
--- NOTE | 2017-01-25 13:07 | PDOC ---
PROGRESS NOTES Chief Complaint Chief Complaint 1. RUL PNA, empyema s/p Chest tube, out 01/25 2. Atelectasis, trace pleural effusions bilateral 3. 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 YOAN on CK5,. 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 GERD, hx DVT - venous doppler are neg, vq low prob PE 7. Dyslipidemia 8. HTN - stable 9. Incidental left renal cyst 10. Hiatal hernia 11.Coronary calcifications 12. 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 constipation 14. generalized weakness plan: 1./ fu with ID, pulm, 2 on zosyn cont PTOT pleural effusion cx neg so far 3. cont home meds dvt ppx on stool softner may dc to SNF soon. History of Present Illness History of Present Illness chest tube out on 01/25 looks very weak mild cough with sputum constipation Vitals Vitals Vital Signs Date Time Temp Pulse Resp B/P Pulse Ox O2 Delivery O2 Flow Rate FiO2 01/25/17 10:42 97.5 90 19 129/57 97 Nasal Cannula 2.0 97.5 Physical Exam General: No acute distress Heart: Regular rate Lungs: Clear Abdomen: Normal bowel sounds Extremities: No cyanosis, Normal pulses, Other (mild bilateral lower extremity edema) Skin: No rashes, No breakdown, No significant lesion Labs LABS Laboratory Tests Test 01/24/17 20:52 01/25/17 05:10 Glucose (Fingerstick) 157mg/dL (70-99) White Blood Count 12.5x10^3/uL (4.0-11.0) Red Blood Count 2.91x10^6/uL (3.50-5.40) Hemoglobin 9.2g/dL (12.0-15.5) Hematocrit 28.1% (36.0-47.0) Mean Corpuscular Volume 97fL (79-100) Mean Corpuscular Hemoglobin 32pg (25-35) Mean Corpuscular Hemoglobin Concent 33g/dL (31-37) Red Cell Distribution Width 13.3% (11.5-14.5) Platelet Count 311x10^3/uL (140-400) Neutrophils (%) (Auto) 77% (31-73) Lymphocytes (%) (Auto) 7% (24-48) Monocytes (%) (Auto) 14% (0-9) Eosinophils (%) (Auto) 2% (0-3) Basophils (%) (Auto) 0% (0-3) Neutrophils # (Auto) 9.6x10^3uL (1.8-7.7) Lymphocytes # (Auto) 0.9x10^3/uL (1.0-4.8) Monocytes # (Auto) 1.7x10^3/uL (0.0-1.1) Eosinophils # (Auto) 0.3x10^3/uL (0.0-0.7) Basophils # (Auto) 0.0x10^3/uL (0.0-0.2) Sodium Level 137mmol/L (136-145) Potassium Level 5.1mmol/L (3.5-5.1) Chloride Level 102mmol/L (98-107) Carbon Dioxide Level 25mmol/L (21-32) Anion Gap 10 (6-14) Blood Urea Nitrogen 23mg/dL (7-20) Creatinine 1.6mg/dL (0.6-1.0) Estimated GFR (Cockcroft-Gault) 30.5 Glucose Level 106mg/dL (70-99) Calcium Level 9.0mg/dL (8.5-10.1) Magnesium Level 2.2mg/dL (1.8-2.4) Review of Systems Review of Systems no fever, chills, sob Assessment and Plan Assessmemt and Plan Problems Medical Problems: (1) CAP (community acquired pneumonia) Status: Acute Problems: Comment Review of Relevant I have reviewed the following items carrie (where applicable) has been applied. Labs Laboratory Tests Test 01/24/17 03:55 01/24/17 20:52 01/25/17 05:10 White Blood Count 10.7x10^3/uL (4.0-11.0) 12.5x10^3/uL (4.0-11.0) Red Blood Count 3.03x10^6/uL (3.50-5.40) 2.91x10^6/uL (3.50-5.40) Hemoglobin 9.7g/dL (12.0-15.5) 9.2g/dL (12.0-15.5) Hematocrit 29.4% (36.0-47.0) 28.1% (36.0-47.0) Mean Corpuscular Volume 97fL (79-100) 97fL (79-100) Mean Corpuscular Hemoglobin 32pg (25-35) 32pg (25-35) Mean Corpuscular Hemoglobin Concent 33g/dL (31-37) 33g/dL (31-37) Red Cell Distribution Width 13.4% (11.5-14.5) 13.3% (11.5-14.5) Platelet Count 286x10^3/uL (140-400) 311x10^3/uL (140-400) Neutrophils (%) (Auto) 74% (31-73) 77% (31-73) Lymphocytes (%) (Auto) 8% (24-48) 7% (24-48) Monocytes (%) (Auto) 16% (0-9) 14% (0-9) Eosinophils (%) (Auto) 2% (0-3) 2% (0-3) Basophils (%) (Auto) 0% (0-3) 0% (0-3) Neutrophils # (Auto) 7.9x10^3uL (1.8-7.7) 9.6x10^3uL (1.8-7.7) Lymphocytes # (Auto) 0.8x10^3/uL (1.0-4.8) 0.9x10^3/uL (1.0-4.8) Monocytes # (Auto) 1.7x10^3/uL (0.0-1.1) 1.7x10^3/uL (0.0-1.1) Eosinophils # (Auto) 0.3x10^3/uL (0.0-0.7) 0.3x10^3/uL (0.0-0.7) Basophils # (Auto) 0.0x10^3/uL (0.0-0.2) 0.0x10^3/uL (0.0-0.2) Sodium Level 134mmol/L (136-145) 137mmol/L (136-145) Potassium Level 4.9mmol/L (3.5-5.1) 5.1mmol/L (3.5-5.1) Chloride Level 99mmol/L (98-107) 102mmol/L (98-107) Carbon Dioxide Level 25mmol/L (21-32) 25mmol/L (21-32) Anion Gap 10 (6-14) 10 (6-14) Blood Urea Nitrogen 25mg/dL (7-20) 23mg/dL (7-20) Creatinine 1.7mg/dL (0.6-1.0) 1.6mg/dL (0.6-1.0) Estimated GFR (Cockcroft-Gault) 28.4 30.5 Glucose Level 128mg/dL (70-99) 106mg/dL (70-99) Calcium Level 8.8mg/dL (8.5-10.1) 9.0mg/dL (8.5-10.1) Magnesium Level 1.4mg/dL (1.8-2.4) 2.2mg/dL (1.8-2.4) Glucose (Fingerstick) 157mg/dL (70-99) Laboratory Tests Test 01/24/17 20:52 01/25/17 05:10 Glucose (Fingerstick) 157mg/dL (70-99) White Blood Count 12.5x10^3/uL (4.0-11.0) Red Blood Count 2.91x10^6/uL (3.50-5.40) Hemoglobin 9.2g/dL (12.0-15.5) Hematocrit 28.1% (36.0-47.0) Mean Corpuscular Volume 97fL (79-100) Mean Corpuscular Hemoglobin 32pg (25-35) Mean Corpuscular Hemoglobin Concent 33g/dL (31-37) Red Cell Distribution Width 13.3% (11.5-14.5) Platelet Count 311x10^3/uL (140-400) Neutrophils (%) (Auto) 77% (31-73) Lymphocytes (%) (Auto) 7% (24-48) Monocytes (%) (Auto) 14% (0-9) Eosinophils (%) (Auto) 2% (0-3) Basophils (%) (Auto) 0% (0-3) Neutrophils # (Auto) 9.6x10^3uL (1.8-7.7) Lymphocytes # (Auto) 0.9x10^3/uL (1.0-4.8) Monocytes # (Auto) 1.7x10^3/uL (0.0-1.1) Eosinophils # (Auto) 0.3x10^3/uL (0.0-0.7) Basophils # (Auto) 0.0x10^3/uL (0.0-0.2) Sodium Level 137mmol/L (136-145) Potassium Level 5.1mmol/L (3.5-5.1) Chloride Level 102mmol/L (98-107) Carbon Dioxide Level 25mmol/L (21-32) Anion Gap 10 (6-14) Blood Urea Nitrogen 23mg/dL (7-20) Creatinine 1.6mg/dL (0.6-1.0) Estimated GFR (Cockcroft-Gault) 30.5 Glucose Level 106mg/dL (70-99) Calcium Level 9.0mg/dL (8.5-10.1) Magnesium Level 2.2mg/dL (1.8-2.4) Microbiology 01/22/17 Anaerobic/Aerobic Culture - Preliminary, Resulted 01/22/17 Anaerobic Culture Result 1 (STEWART) - Preliminary, Resulted 01/22/17 Aerobic Culture - Preliminary, Resulted 01/22/17 Aerobic Culture Result 1 (STEWART) - Preliminary, Resulted Medications Current Medications Ondansetron HCl (Zofran) 4 mg PRN Q6HRS PRN IV NAUSEA/VOMITING, 1ST CHOICE Last administered on 01/24/17t 09:18; Start 01/22/17 at 11:15 Prochlorperazine Edisylate (Compazine) 10 mg PRN Q6HRS PRN IV NAUSEA/VOMITING, 2ND CHOICE; Start 01/22/17 at 11:15 Prochlorperazine (Compazine) 25 mg PRN Q12HR PRN SC NAUSEA/VOMITING; Start 01/22 at 11:15 Al Hydrox/Mg Hydrox/Simethicone (Mylanta Plus Xs) 30 ml PRN Q3HRS PRN PO HEARTBURN / GAS; Start 01/22/17 at 11:15 Calcium Carbonate/ Glycine (Tums) 500 mg PRN Q3HRS PRN PO UPSET STOMACH; Start 01/22/17 at 11:15 Morphine Sulfate 1 mg PRN Q2HR PRN IV PAIN Last administered on 01/24/17 01:03 ; Start 01/22/17 at 11:15 Acetaminophen/ Hydrocodone Bitart (Lortab 5/325) 1 tab PRN Q4HRS PRN PO MODERATE PAIN; Start 01/22/17 at 11:15 Acetaminophen (Tylenol) 650 mg PRN Q6HRS PRN PO MILD PAIN / TEMP; Start at 11:15 Ibuprofen (Motrin) 400 mg PRN Q6HRS PRN PO MILD PAIN; Start 01/22/17 at 11:15 Docusate Sodium (Colace) 100 mg BID PO Last administered on 01/25/17 09:06; Start 01/22/17 at 12:00 Magnesium Hydroxide (Milk Of Magnesia) 2,400 mg PRN Q12HR PRN PO CONSTIPATION; Start 01/22/17 at 11:15 Lactulose 20 gm PRN Q12HR PRN PO CONSTIPATION Last administered on 01/25/17 12: 09; Start 01/22/17 at 11:15 Bisacodyl (Dulcolax Supp) 10 mg PRN DAILY PRN SC CONSTIPATION; Start 01/22/17 at 11:15 Enoxaparin Sodium 40 mg 40 mg Q24H SQ ; Start 01/22/17 at 16:00; Stop 01/22/17 at 16:00; Status DC Vancomycin HCl 1 gm/Sodium Chloride 250 ml @ 250 mls/hr Q24H IV ; Start at 11:15; Status UNV Piperacillin Sod/ Tazobactam Sod/ Sodium Chloride (Zosyn/Iv Sodium Chloride 0.9 % 50ml) 50 ml @ 100 mls/hr Q6HRS IV Last administered on 01/25/17 12:10; Start 01/22/17 at 12:00 Guaifenesin (Robitussin Dm) 10 ml PRN Q6HRS PRN PO COUGH; Start 01/22/17 at 11: 15 Vancomycin HCl 1 each 1 each PRN DAILY PRN MC SEE COMMENTS Last administered on 01/23/17 10:59; Start 01/22/17 at 11:30; Stop 01/23/17 at 15:13; Status DC Vancomycin HCl/ Sodium Chloride (Iv Sodium Chloride 0.9% 500ml Bag) 500 ml @ 250 mls/hr 1X ONCE IV ; Start 01/22/17 at 12:00; Stop 01/22/17 at 13:59; Status Cancel Alprazolam (Xanax) 0.25 mg BID PO Last administered on 01/25/17 09:07; Start at 12:00 Atorvastatin Calcium (Lipitor) 40 mg HS PO Last administered on 01/24/17 21:21 ; Start 01/22/17 at 21:00 Cyclobenzaprine HCl (Flexeril) 10 mg TID PO Last administered on 01/25/17 09:08 ; Start 01/22/17 at 14:00 EZETIMIBE (Zetia) 10 mg DAILY PO Last administered on 01/25/17 09:06; Start 01/22/17 at 12:00 Ferrous Sulfate (Feosol) 325 mg DAILYWBKFT PO Last administered on 01/25/17 09: 06; Start 01/22/17 at 12:00 Acetaminophen/ Hydrocodone Bitart (Lortab 7.5/325) 1 tab PRN Q4HRS PRN PO SEVERE PAIN Last administered on 01/24/17 01:38; Start 01/22/17 at 12:00 Metoprolol Tartrate (Lopressor) 50 mg BID PO Last administered on 01/25/17 09: 07; Start 01/22/17 at 12:00 Multivitamins/ Calcium (Thera M Plus) 1 tab DAILY PO Last administered on 09:07; Start 01/22/17 at 12:00 Oxycodone HCl (Oxycontin) 10 mg BID PO Last administered on 01/25/17 09:13; Start 01/22/17 at 12:00 Sennosides (Senna) 8.6 mg PRN DAILY PRN PO CONSTIPATION; Start 01/22/17 at 12:00 Docusate Sodium (Colace) 100 mg DAILY PO ; Start 01/22/17 at 12:15; Status Cancel Losartan Potassium (Cozaar) 50 mg DAILY PO Last administered on 01/25/17 09:06 ; Start 01/23/17 at 09:00 Nifedipine (Procardia Xl) 30 mg DAILY PO Last administered on 01/25/17 09:07; Start 01/22/17 at 12:00 Pantoprazole Sodium (Protonix) 40 mg DAILYAC PO Last administered on 01/25/17 09:08; Start 01/22/17 at 12:30 Triamterene/HCTZ (Maxzide 37.5/ 25mg) 1 tab DAILY PO Last administered on 09:05; Start 01/22/17 at 12:30 Piperacillin Sod/ Tazobactam Sod (Zosyn Per Pharmacy) 1 each PRN DAILY PRN MC SEE COMMENTS; Start 01/22/17 at 12:30; Stop 01/22/17 at 12:30; Status DC Heparin Sodium (Porcine) 5000 unit 5,000 unit Q8HRS SQ Last administered on 01/25 06:14; Start 01/22/17 at 14:00 Vancomycin HCl/ Sodium Chloride (Iv Sodium Chloride 0.9% 250ml) 250 ml @ 250 mls/hr Q48H IV ; Start 01/23/17 at 21:00; Stop 01/23/17 at 21:00; Status DC Vancomycin HCl 1 each 1X ONCE MC ; Start 01/25/17 at 20:30; Stop 01/25/17 at 20: 30; Status DC Lidocaine/Sodium Bicarbonate (Buffered Lidocaine 1%) 20 ml STK-MED ONCE IJ ; Start 01/22/17 at 16:37; Stop 01/22/17 at 16:38; Status DC Fentanyl Citrate (Fentanyl 2ml Vial) 100 mcg STK-MED ONCE .ROUTE ; Start at 16:37; Stop 01/22/17 at 16:38; Status DC Midazolam HCl 2 mg 2 mg STK-MED ONCE .ROUTE ; Start 01/22/17 at 16:38; Stop at 16:39; Status DC Alteplase, Recombinant/ Sodium Chloride (Cathflo/Iv Sodium Chloride 0.9% 50ml) 50 ml @ 30 mls/hr 1X ONCE IV Last administered on 01/22/17 18:01; Start at 18:00; Stop 01/22/17 at 19:39; Status DC Lidocaine/Sodium Bicarbonate (Buffered Lidocaine 1%) 3 ml 1X ONCE IJ Last administered on 01/22/17 17:54; Start 01/22/17 at 18:00; Stop 01/22/17 at 18:01; Status DC Midazolam HCl (Versed) 0.5 mg 1X ONCE IV Last administered on 01/22/17 17:54; Start 01/22/17 at 18:00; Stop 01/22/17 at 18:01; Status DC Fentanyl Citrate (Fentanyl 2ml Vial) 100 mcg 1X ONCE IV Last administered on 17:55; Start 01/22/17 at 18:00; Stop 01/22/17 at 18:01; Status DC Morphine Sulfate 2 mg 2 mg 1X ONCE IV ; Start 01/22/17 at 20:15; Stop 01/22/17 at 20:24; Status DC Diltiazem HCl/ Dextrose (Cardizem) 125 ml @ 0 mls/hr CONT PRN IV SEE I/O RECORD ; Start 01/22/17 at 20:15; Stop 01/22/17 at 20:38; Status DC Diltiazem HCl 20 mg 20 mg 1X ONCE IVP ; Start 01/22/17 at 20:15; Stop 01/22/17 at 20:38; Status DC Magnesium Sulfate/ Dextrose (Magnesium Sulfate PREMIX 2GM) 50 ml @ 25 mls/hr 1X ONCE IV Last administered on 01/24/17 15:19; Start 01/24/17 at 15:00; Stop 01/24/17 at 16:59; Status DC Senna/Docusate Sodium (Senna Plus) 1 tab BID PO ; Start 01/25/17 at 12:00; Status Cancel Docusate Sodium (Colace) 100 mg BID PO ; Start 01/25/17 at 12:00; Status Cancel Magnesium Hydroxide (Milk Of Magnesia) 2,400 mg PRN Q12HR PRN PO CONSTIPATION; Start 01/25/17 at 11:30 Aspirin (Ecotrin) 81 mg DAILYWBKFT PO ; Start 01/25/17 at 13:00 Active Scripts Active Reported Triamterene-Hctz 37.5-25 Mg Cp (Triamterene/Hydrochlorothiazid) 1 Each Capsule 1 Cap PO DAILY Senokot (Sennosides) 8.6 Mg Tablet 8.6 Mg PO PRN DAILY PRN Oxycontin (Oxycodone HCl) 10 Mg Tab.er.12h 10 Mg PO BID Omeprazole 40 Mg Capsule.dr 40 Mg PO DAILY Nifedipine Er (Nifedipine) 30 Mg Tablet.er 30 Mg PO DAILY Thera M Plus Tablet (Multivits,Ca,Minerals/Iron/FA) 1 Each Tablet 1 Each PO DAILY Metoprolol Tartrate 50 Mg Tablet 50 Mg PO BID Hydrocodone-Apap 7.5-325 (Hydrocodone Bit/Acetaminophen) 1 Each Tablet 1 Tab PO PRN Q4HRS PRN Ferrous Sulfate 325 Mg Tablet 1 Tab PO DAILY Zetia (Ezetimibe) 10 Mg Tablet 10 Mg PO DAILY Eprosartan Mesylate 600 Mg Tablet 600 Mg PO DAILY Docusate Sodium 100 Mg Tablet 100 Mg PO DAILY Cyclobenzaprine Hcl 10 Mg Tablet 10 Mg PO TID Atorvastatin Calcium 40 Mg Tablet 40 Mg PO HS Xanax (Alprazolam) 0.25 Mg Tablet 1 Tab PO BID Vitals/I & O Vital Sign - Last 24 Hours 01/24/17 01/24/17 01/24/17 01/24/17 15:00 19:00 20:00 21:22 Temp 97.6 98.2 97.6 98.2 Pulse 85 101 97 Resp 22 20 B/P 124/60 126/60 127/61 Pulse Ox 96 98 O2 Delivery Room Air Nasal Cannula Nasal Cannula O2 Flow Rate 2.0 2.0 01/24/17 01/24/17 01/25/17 01/25/17 21:22 23:00 01:22 03:00 Temp 98.1 97.7 98.1 97.7 Pulse 91 86 Resp 18 20 20 20 B/P 116/53 123/58 Pulse Ox 98 97 98 98 O2 Delivery Nasal Cannula Nasal Cannula Nasal Cannula Nasal Cannula O2 Flow Rate 2.0 2.0 2.0 2.0 01/25/17 01/25/17 01/25/17 01/25/17 07:00 08:00 09:06 09:07 Temp 97.9 97.9 Pulse 89 89 89 Resp 19 B/P 121/70 121/70 121/70 Pulse Ox 95 O2 Delivery Nasal Cannula Nasal Cannula O2 Flow Rate 2.0 2.0 01/25/17 01/25/17 01/25/17 09:07 09:13 10:42 Temp 97.5 97.5 Pulse 89 90 Resp 19 B/P 121/70 129/57 Pulse Ox 95 97 O2 Delivery Nasal Cannula Nasal Cannula O2 Flow Rate 2.0 2.0 Intake and Output 01/24/17 01/24/17 01/25/17 15:00 23:00 07:00 Intake Total 240 ml 290 ml 180 ml Output Total 250 ml Balance 240 ml 290 ml -70 ml GUS SOLIS MD Jan 25, 2017 13:07
[2017-01-25] MEDS: ASPIRIN ENTERIC COATED 81 MG TABLET.DR. PO SCH (13:45)
[2017-01-25 15:00] VITALS: BP 129/62
[2017-01-25] MEDS ORDERED: OXYCODONE ER 10 MG TAB.ER.12H. PO PRN (15:00)
[2017-01-25] MEDS ORDERED: MAGNESIUM SULFATE 2GM 50 ML IV PRN (15:15)
--- NOTE | 2017-01-25 15:24 | PDOC ---
SUBJECTIVE ROS CKD III "I Have'nt had a BM for 2 weeks" CVS: no Orthopnea, no CP RESP: no SOB, no CASTILLO GI: no Nausea, no Vomiting : no Dysuria, no Urgency OBJECTIVE Vital Signs Vital Signs Date Time Temp Pulse Resp B/P Pulse Ox O2 Delivery O2 Flow Rate FiO2 01/25/17 13:21 97 Nasal Cannula 2.0 01/25/17 10:42 97.5 90 19 129/57 97.5 I & 0 Intake and Output 01/25/17 07:00 Intake Total 710 ml Output Total 250 ml Balance 460 ml Intake Oral 660 ml IV Total 50 ml Output Urine Total 250 ml # Voids 4 Goes in Brief PHYSICAL EXAM Physical Exam GEN: Awake, Oriented x 1-2 , In no distress EYES: Vision Unchanged, Conjunctiva Normal EN: No EN Drainage, Mucous Membranes dryish NECK: no JVD, no JVP, Supple, no Thyromegaly CVS: S1S2, ? Murmur, No Gallop, No Rub,no Edema RESP: few occ Rales, no Rhonchi,no Acc. Muscle Use GI: BS + ve, NO Bruit, Non Tender, Non Distended : no CVA tenderness, no Suprapubic Tenderness DIAGNOSIS/ASSESSMENT Assessment & Plan CKD III/ IV: Current fluid and E-lyte status does not necessitate emergent need for dialysis. Will re-evaluate for dialysis in the am ; Renal US as ordered. UA ordered for further eval Low Mag - resolved ANEMIA; check Iron. may need Aranesp as needed HTN: Current BP meds as reviewed. See orders for changes. Constipation - on Bowel regimen Problems: COMMENT/RELEVANT DATA Meds Current Medications Medications (Trade) Dose Ordered Sig/Kavitha Start Time Stop Time Status Last Admin Dose Admin Acetaminophen (Tylenol) 650 mg PRN Q6HRS PRN 01/22/17 11:15 Acetaminophen/ Hydrocodone Bitart (Lortab 5/325) 1 tab PRN Q4HRS PRN 01/22/17 11:15 Acetaminophen/ Hydrocodone Bitart (Lortab 7.5/325) 1 tab PRN Q4HRS PRN 01/22/17 12:00 01/24/17 01:38 1 TAB Al Hydrox/Mg Hydrox/Simethicone (Mylanta Plus Xs) 30 ml PRN Q3HRS PRN 01/22/17 11:15 Alprazolam (Xanax) 0.25 mg BID 01/22/17 12:00 01/25/17 09:07 0.25 MG Alteplase, Recombinant/ Sodium Chloride (Cathflo/Iv Sodium Chloride 0.9% 50ml) 50 ml @ 30 mls/hr 1X ONCE 01/22/17 18:00 01/22/17 19:39 DC 01/22/17 18:01 30 MLS/HR Aspirin (Ecotrin) 81 mg DAILYWBKFT 01/25/17 13:00 01/25/17 13:45 81 MG Atorvastatin Calcium (Lipitor) 40 mg HS 01/22/17 21:00 01/24/17 21:21 40 MG Bisacodyl (Dulcolax Supp) 10 mg PRN DAILY PRN 01/22/17 11:15 Calcium Carbonate/ Glycine (Tums) 500 mg PRN Q3HRS PRN 01/22/17 11:15 Cyclobenzaprine HCl (Flexeril) 10 mg TID 01/22/17 14:00 01/25/17 13:45 10 MG Diltiazem HCl 20 mg 20 mg 1X ONCE 01/22/17 20:15 01/22/17 20:38 DC Diltiazem HCl/ Dextrose (Cardizem) 125 ml @ 0 mls/hr CONT PRN 01/22/17 20:15 01/22/17 20:38 DC Docusate Sodium (Colace) 100 mg BID 01/25/17 12:00 Cancel Enoxaparin Sodium 40 mg 40 mg Q24H 01/22/17 16:00 01/22/17 16:00 DC EZETIMIBE (Zetia) 10 mg DAILY 01/22/17 12:00 01/25/17 09:06 10 MG Fentanyl Citrate (Fentanyl 2ml Vial) 100 mcg 1X ONCE 01/22/17 18:00 01/22/17 18:01 DC 01/22/17 17:55 100 MCG Ferrous Sulfate (Feosol) 325 mg DAILYWBKFT 01/22/17 12:00 01/25/17 09:06 325 MG Guaifenesin (Robitussin Dm) 10 ml PRN Q6HRS PRN 01/22/17 11:15 Heparin Sodium (Porcine) 5000 unit 5,000 unit Q8HRS 01/22/17 14:00 01/25/17 13:46 5,000 UNIT Ibuprofen (Motrin) 400 mg PRN Q6HRS PRN 01/22/17 11:15 Lactulose 20 gm PRN Q12HR PRN 01/22/17 11:15 01/25/17 12:09 20 GM Lidocaine/Sodium Bicarbonate (Buffered Lidocaine 1%) 3 ml 1X ONCE 01/22/17 18:00 01/22/17 18:01 DC 01/22/17 17:54 3 ML Losartan Potassium (Cozaar) 50 mg DAILY 01/23/17 09:00 01/25/17 09:06 50 MG Magnesium Hydroxide (Milk Of Magnesia) 2,400 mg PRN Q12HR PRN 01/25/17 11:30 01/25/17 13:04 DC Magnesium Sulfate/ Dextrose (Magnesium Sulfate PREMIX 2GM) 50 ml @ 25 mls/hr 1X ONCE 01/24/17 15:00 01/24/17 16:59 DC 01/24/17 15:19 25 MLS/HR Metoprolol Tartrate (Lopressor) 50 mg BID 01/22/17 12:00 01/25/17 09:07 50 MG Midazolam HCl (Versed) 0.5 mg 1X ONCE 01/22/17 18:00 01/22/17 18:01 DC 01/22/17 17:54 0.5 MG Midazolam HCl 2 mg 2 mg STK-MED ONCE 01/22/17 16:38 01/22/17 16:39 DC Morphine Sulfate 2 mg 2 mg 1X ONCE 01/22/17 20:15 01/22/17 20:24 DC Multivitamins/ Calcium (Thera M Plus) 1 tab DAILY 01/22/17 12:00 01/25/17 09:07 1 TAB Nifedipine (Procardia Xl) 30 mg DAILY 01/22/17 12:00 01/25/17 09:07 30 MG Ondansetron HCl (Zofran) 4 mg PRN Q6HRS PRN 01/22/17 11:15 01/24/17 09:18 4 MG Oxycodone HCl (Oxycontin) 10 mg PRN BID PRN 01/25/17 15:00 Pantoprazole Sodium (Protonix) 40 mg DAILYAC 01/22/17 12:30 01/25/17 09:08 40 MG Piperacillin Sod/ Tazobactam Sod (Zosyn Per Pharmacy) 1 each PRN DAILY PRN 01/22/17 12:30 01/22/17 12:30 DC Piperacillin Sod/ Tazobactam Sod/ Sodium Chloride (Zosyn/Iv Sodium Chloride 0.9% 50ml) 50 ml @ 100 mls/hr Q6HRS 01/22/17 12:00 01/25/17 12:10 100 MLS/HR Prochlorperazine (Compazine) 25 mg PRN Q12HR PRN 01/22/17 11:15 Prochlorperazine Edisylate (Compazine) 10 mg PRN Q6HRS PRN 01/22/17 11:15 Senna/Docusate Sodium (Senna Plus) 1 tab BID 01/25/17 12:00 Cancel Sennosides (Senna) 8.6 mg PRN DAILY PRN 01/22/17 12:00 Triamterene/HCTZ (Maxzide 37.5/ 25mg) 1 tab DAILY 01/22/17 12:30 01/25/17 09:05 1 TAB Vancomycin HCl 1 each 1X ONCE 01/25/17 20:30 01/25/17 20:30 DC Vancomycin HCl 1 each 1 each PRN DAILY PRN 01/22/17 11:30 01/23/17 15:13 DC 01/23/17 10:59 1 EACH Vancomycin HCl 1 gm/Sodium Chloride 250 ml @ 250 mls/hr Q24H 01/22/17 11:15 UNV Vancomycin HCl/ Sodium Chloride (Iv Sodium Chloride 0.9% 250ml) 250 ml @ 250 mls/hr Q48H 01/23/17 21:00 01/23/17 21:00 DC Vancomycin HCl/ Sodium Chloride (Iv Sodium Chloride 0.9% 500ml Bag) 500 ml @ 250 mls/hr 1X ONCE 01/22/17 12:00 01/22/17 13:59 Cancel Lab Laboratory Tests Test 01/24/17 20:52 01/25/17 05:10 Glucose (Fingerstick) 157mg/dL (70-99) White Blood Count 12.5x10^3/uL (4.0-11.0) Red Blood Count 2.91x10^6/uL (3.50-5.40) Hemoglobin 9.2g/dL (12.0-15.5) Hematocrit 28.1% (36.0-47.0) Mean Corpuscular Volume 97fL (79-100) Mean Corpuscular Hemoglobin 32pg (25-35) Mean Corpuscular Hemoglobin Concent 33g/dL (31-37) Red Cell Distribution Width 13.3% (11.5-14.5) Platelet Count 311x10^3/uL (140-400) Neutrophils (%) (Auto) 77% (31-73) Lymphocytes (%) (Auto) 7% (24-48) Monocytes (%) (Auto) 14% (0-9) Eosinophils (%) (Auto) 2% (0-3) Basophils (%) (Auto) 0% (0-3) Neutrophils # (Auto) 9.6x10^3uL (1.8-7.7) Lymphocytes # (Auto) 0.9x10^3/uL (1.0-4.8) Monocytes # (Auto) 1.7x10^3/uL (0.0-1.1) Eosinophils # (Auto) 0.3x10^3/uL (0.0-0.7) Basophils # (Auto) 0.0x10^3/uL (0.0-0.2) Sodium Level 137mmol/L (136-145) Potassium Level 5.1mmol/L (3.5-5.1) Chloride Level 102mmol/L (98-107) Carbon Dioxide Level 25mmol/L (21-32) Anion Gap 10 (6-14) Blood Urea Nitrogen 23mg/dL (7-20) Creatinine 1.6mg/dL (0.6-1.0) Estimated GFR (Cockcroft-Gault) 30.5 Glucose Level 106mg/dL (70-99) Calcium Level 9.0mg/dL (8.5-10.1) Magnesium Level 2.2mg/dL (1.8-2.4) TANISHA HERNANDEZ MD Jan 25, 2017 15:24
[2017-01-25 16:05] LABS: % SAT IRON 15 % (15-34); IRON,SERUM 17 ug/dL (50-170)
[2017-01-25 19:00] VITALS: BP 116/40
[2017-01-25] MEDS: ATORVASTATIN CALCIUM 40 MG TABLET. PO SCH (20:41)
[2017-01-25 21:29] LABS: BILIRUBIN,URINE NEGATIVE (NEG); GLUCOSE,URINE NEGATIVE (NEG); NITRITE,URINE NEGATIVE (NEG); PH,URINE 6.5; PROTEIN,URINE NEGATIVE (NEG-TRACE); UROBILINOGEN,URINE 0.2 mg/dL (0.2 mg/dL)
[2017-01-25 21:37] LABS: BACTERIA,URINE 0 /HPF (0-FEW); RBC,URINE 0 /HPF (0-2); SQUAMOUS EPITHELIAL CELL,UR OCC /LPF; WBC,URINE OCC /HPF (0-4)
[2017-01-25 23:00] VITALS: BP 125/60
[2017-01-26 03:00] VITALS: BP 138/55
[2017-01-26 03:03] LABS: BASO % 0 % (0-3); EOS % 2 % (0-3); HEMATOCRIT 32.7 % (36.0-47.0); HEMOGLOBIN 10.5 g/dL (12.0-15.5); LYMPH % 8 % (24-48); MEAN CORPUSCULAR HEMOGLOBIN 31 pg (25-35); MEAN CORPUSCULAR HGB CONC 32 g/dL (31-37); MEAN CORPUSCULAR VOLUME 97 fL (79-100); MONO % 11 % (0-9); NEUT % 79 % (31-73); PLATELET COUNT 400 x10^3/uL (140-400); RED BLOOD COUNT 3.37 x10^6/uL (3.50-5.40); RED CELL DISTRIBUTION WIDTH 13.5 % (11.5-14.5); WHITE BLOOD COUNT 12.1 x10^3/uL (4.0-11.0)
[2017-01-26 03:23] LABS: ALBUMIN 2.1 g/dL (3.4-5.0); CALCIUM 10.2 mg/dL (8.5-10.1); CREATININE 1.6 mg/dL (0.6-1.0); GFR 30.5; PHOSPHORUS 4.4 mg/dL (2.6-4.7); POTASSIUM 5.1 mmol/L (3.5-5.1)
[2017-01-26] MEDS: PIPERACILLIN/TAZOBACTAM 2.25 GM in IV NORMAL SALINE 50ML 50 ML IV SCH (05:55)
[2017-01-26] MEDS: HEPARIN PF for SUB-Q USE 5,000 UNIT/0.5 ML VIAL. SQ SCH ×2 (05:57→13:29)
[2017-01-26 07:15] VITALS: BP 142/69
--- NOTE | 2017-01-26 07:21 | RAD ---
EXAM: Renal/retroperitonal ultrasound HISTORY: Elevated creatinine. COMPARISON: None. FINDINGS: Ultrasound of the kidneys, bladder and retroperitoneum was performed. The right kidney measures 10.6 cm. Cortical thickness and echogenicity are preserved. There is no hydronephrosis. The left kidney measures 10.3 cm. Cortical thickness and echogenicity are preserved. There is no hydronephrosis. A cyst at the lower pole appears simple and benign and measures 3.2 x 2.7 cm. The bladder is distended with a calculated volume of 512 mL. No focal mural lesions are seen. IMPRESSION: 1. Distended bladder. Correlate to exclude urinary retention. 2. No hydronephrosis. 3. 3.2 cm benign-appearing left renal cyst.
[2017-01-26] MEDS ORDERED: MAGNESIUM SULFATE 2GM 50 ML IV ONE (09:00)
[2017-01-26] MEDS: ALPRAZOLAM 0.25 MG TABLET PO SCH (09:00)
[2017-01-26] MEDS: CYCLOBENZAPRINE 10 MG TABLET. PO SCH ×2 (09:03→13:09)
[2017-01-26] MEDS: PANTOPRAZOLE 40 MG TABLET. PO SCH (09:03)
[2017-01-26] MEDS: DOCUSATE SODIUM 100 MG CAPSULE PO SCH (09:04)
[2017-01-26] MEDS: NIFEDIPINE ER 30 MG TAB.ER.24H PO SCH (09:04)
[2017-01-26] MEDS: TRIAMTERENE/HCTZ 37.5/25MG TABLET. PO SCH (09:05)
[2017-01-26] MEDS: LOSARTAN POTASSIUM 50 MG TABLET. PO SCH (09:05)
[2017-01-26] MEDS: FERROUS SULFATE 325 MG TABLET PO SCH (09:05)
[2017-01-26] MEDS: METOPROLOL TART IMMED RELEASE 50 MG TABLET PO SCH (09:06)
[2017-01-26] MEDS: MULTIVITAMIN with MINERAL TABLET. PO SCH (09:06)
[2017-01-26] MEDS: EZETIMIBE 10 MG TABLET PO SCH (09:06)
[2017-01-26] MEDS: ASPIRIN ENTERIC COATED 81 MG TABLET.DR. PO SCH (09:06)
--- NOTE | 2017-01-26 09:11 | PDOC ---
PULMONARY PROGRESS NOTES Subjective pt feel better less pleuritic pain Vitals Vital Signs Date Time Temp Pulse Resp B/P Pulse Ox O2 Delivery O2 Flow Rate FiO2 01/26/17 08:00 Room Air 01/26/17 07:15 97.5 96 20 142/69 94 97.5 01/26/17 03:00 2.0 ROS: No Nausea, No Abdominal Pain, No Increase Cough General: Alert Lungs: Clear Cardiovascular: S1, S2 Abdomen: Soft, Non-tender Neuro Exam: Alert Extremities: No Edema Skin: Warm Labs Laboratory Tests Test 01/24/17 20:52 01/25/17 05:10 01/25/17 21:05 01/26/17 02:48 Glucose (Fingerstick) 157mg/dL (70-99) White Blood Count 12.5x10^3/uL (4.0-11.0) 12.1x10^3/uL (4.0-11.0) Red Blood Count 2.91x10^6/uL (3.50-5.40) 3.37x10^6/uL (3.50-5.40) Hemoglobin 9.2g/dL (12.0-15.5) 10.5g/dL (12.0-15.5) Hematocrit 28.1% (36.0-47.0) 32.7% (36.0-47.0) Mean Corpuscular Volume 97fL (79-100) 97fL (79-100) Mean Corpuscular Hemoglobin 32pg (25-35) 31pg (25-35) Mean Corpuscular Hemoglobin Concent 33g/dL (31-37) 32g/dL (31-37) Red Cell Distribution Width 13.3% (11.5-14.5) 13.5% (11.5-14.5) Platelet Count 311x10^3/uL (140-400) 400x10^3/uL (140-400) Neutrophils (%) (Auto) 77% (31-73) 79% (31-73) Lymphocytes (%) (Auto) 7% (24-48) 8% (24-48) Monocytes (%) (Auto) 14% (0-9) 11% (0-9) Eosinophils (%) (Auto) 2% (0-3) 2% (0-3) Basophils (%) (Auto) 0% (0-3) 0% (0-3) Neutrophils # (Auto) 9.6x10^3uL (1.8-7.7) 9.5x10^3uL (1.8-7.7) Lymphocytes # (Auto) 0.9x10^3/uL (1.0-4.8) 1.0x10^3/uL (1.0-4.8) Monocytes # (Auto) 1.7x10^3/uL (0.0-1.1) 1.4x10^3/uL (0.0-1.1) Eosinophils # (Auto) 0.3x10^3/uL (0.0-0.7) 0.2x10^3/uL (0.0-0.7) Basophils # (Auto) 0.0x10^3/uL (0.0-0.2) 0.0x10^3/uL (0.0-0.2) Reticulocyte Count (auto) 1.4% (0.5-2.5) Sodium Level 137mmol/L (136-145) 141mmol/L (136-145) Potassium Level 5.1mmol/L (3.5-5.1) 5.1mmol/L (3.5-5.1) Chloride Level 102mmol/L (98-107) 104mmol/L (98-107) Carbon Dioxide Level 25mmol/L (21-32) 27mmol/L (21-32) Anion Gap 10 (6-14) 10 (6-14) Blood Urea Nitrogen 23mg/dL (7-20) 23mg/dL (7-20) Creatinine 1.6mg/dL (0.6-1.0) 1.6mg/dL (0.6-1.0) Estimated GFR (Cockcroft-Gault) 30.5 30.5 Glucose Level 106mg/dL (70-99) 135mg/dL (70-99) Calcium Level 9.0mg/dL (8.5-10.1) 10.2mg/dL (8.5-10.1) Magnesium Level 2.2mg/dL (1.8-2.4) 1.7mg/dL (1.8-2.4) Iron Level 17ug/dL (50-170) Total Iron Binding Capacity 116ug/dL (250-450) Iron Saturation 15% (15-34) Ferritin 563ng/mL (8-252) Urine Color Yellow Urine Clarity Clear Urine pH 6.5 Urine Specific [place] 1.010 Urine Protein Negativemg/dL (NEG-TRACE) Urine Glucose (UA) Negativemg/dL (NEG) Urine Ketones (Stick) Negativemg/dL (NEG) Urine Blood Negative (NEG) Urine Nitrite Negative (NEG) Urine Bilirubin Negative (NEG) Urine Urobilinogen Dipstick 0.2mg/dL (0.2 mg/dL) Urine Leukocyte Esterase Negative (NEG) Urine RBC 0/HPF (0-2) Urine WBC Occ/HPF (0-4) Urine Squamous Epithelial Cells Occ/LPF Urine Bacteria 0/HPF (0-FEW) Urine Mucus Slight/LPF Phosphorus Level 4.4mg/dL (2.6-4.7) Albumin 2.1g/dL (3.4-5.0) Laboratory Tests Test 01/25/17 21:05 01/26/17 02:48 Urine Color Yellow Urine Clarity Clear Urine pH 6.5 Urine Specific [place] 1.010 Urine Protein Negativemg/dL (NEG-TRACE) Urine Glucose (UA) Negativemg/dL (NEG) Urine Ketones (Stick) Negativemg/dL (NEG) Urine Blood Negative (NEG) Urine Nitrite Negative (NEG) Urine Bilirubin Negative (NEG) Urine Urobilinogen Dipstick 0.2mg/dL (0.2 mg/dL) Urine Leukocyte Esterase Negative (NEG) Urine RBC 0/HPF (0-2) Urine WBC Occ/HPF (0-4) Urine Squamous Epithelial Cells Occ/LPF Urine Bacteria 0/HPF (0-FEW) Urine Mucus Slight/LPF White Blood Count 12.1x10^3/uL (4.0-11.0) Red Blood Count 3.37x10^6/uL (3.50-5.40) Hemoglobin 10.5g/dL (12.0-15.5) Hematocrit 32.7% (36.0-47.0) Mean Corpuscular Volume 97fL (79-100) Mean Corpuscular Hemoglobin 31pg (25-35) Mean Corpuscular Hemoglobin Concent 32g/dL (31-37) Red Cell Distribution Width 13.5% (11.5-14.5) Platelet Count 400x10^3/uL (140-400) Neutrophils (%) (Auto) 79% (31-73) Lymphocytes (%) (Auto) 8% (24-48) Monocytes (%) (Auto) 11% (0-9) Eosinophils (%) (Auto) 2% (0-3) Basophils (%) (Auto) 0% (0-3) Neutrophils # (Auto) 9.5x10^3uL (1.8-7.7) Lymphocytes # (Auto) 1.0x10^3/uL (1.0-4.8) Monocytes # (Auto) 1.4x10^3/uL (0.0-1.1) Eosinophils # (Auto) 0.2x10^3/uL (0.0-0.7) Basophils # (Auto) 0.0x10^3/uL (0.0-0.2) Sodium Level 141mmol/L (136-145) Potassium Level 5.1mmol/L (3.5-5.1) Chloride Level 104mmol/L (98-107) Carbon Dioxide Level 27mmol/L (21-32) Anion Gap 10 (6-14) Blood Urea Nitrogen 23mg/dL (7-20) Creatinine 1.6mg/dL (0.6-1.0) Estimated GFR (Cockcroft-Gault) 30.5 Glucose Level 135mg/dL (70-99) Calcium Level 10.2mg/dL (8.5-10.1) Phosphorus Level 4.4mg/dL (2.6-4.7) Magnesium Level 1.7mg/dL (1.8-2.4) Albumin 2.1g/dL (3.4-5.0) Medications Active Scripts Medications Dose Route/Sig Days Date Category Triamterene-Hctz 37.5-25 Mg Cp (Triamterene/Hydrochlorothiazid) 1 Each Capsule 1 Cap PO DAILY 01/22/17 Reported Senokot (Sennosides) 8.6 Mg Tablet 8.6 Mg PO PRN DAILY PRN 01/22/17 Reported Oxycontin (Oxycodone HCl) 10 Mg Tab.er.12h 10 Mg PO BID 01/22/17 Reported Omeprazole 40 Mg Capsule.dr 40 Mg PO DAILY 01/22/17 Reported Nifedipine Er (Nifedipine) 30 Mg Tablet.er 30 Mg PO DAILY 01/22/17 Reported Thera M Plus Tablet (Multivits,Ca,Minerals/Iron/FA) 1 Each Tablet 1 Each PO DAILY 01/22/17 Reported Metoprolol Tartrate 50 Mg Tablet 50 Mg PO BID 01/22/17 Reported Hydrocodone-Apap 7.5-325 (Hydrocodone Bit/Acetaminophen) 1 Each Tablet 1 Tab PO PRN Q4HRS PRN 01/22/17 Reported Ferrous Sulfate 325 Mg Tablet 1 Tab PO DAILY 01/22/17 Reported Zetia (Ezetimibe) 10 Mg Tablet 10 Mg PO DAILY 01/22/17 Reported Eprosartan Mesylate 600 Mg Tablet 600 Mg PO DAILY 01/22/17 Reported Docusate Sodium 100 Mg Tablet 100 Mg PO DAILY 01/22/17 Reported Cyclobenzaprine Hcl 10 Mg Tablet 10 Mg PO TID 01/22/17 Reported Atorvastatin Calcium 40 Mg Tablet 40 Mg PO HS 01/22/17 Reported Xanax (Alprazolam) 0.25 Mg Tablet 1 Tab PO BID 01/22/17 Reported Impression . 1. Pneumonia, complicated with parapneumonic effusion. 2. Parapneumonic effusion, suspected empyema. 3. Pleurisy secondary to above. 4. Chronic kidney disease. 5. Hypertension. 6. Systemic inflammatory response syndrome. 7. History of deep venous thrombosis, negative venous Dopplers during this admission; ventilation-perfusion scan, low probability for pulmonary embolism. 8. Hiatal hernia. Plan . 1. Continue current broad spectrum antibiotics, per ID 2. Cxr reviewed not much fluid left, tube removed 01/25 3. pleural fluid analysis for routine cultures ,so far no growth 4. Pt is very weak, will need skill care LANDY HWANG MD Jan 26, 2017 09:11
--- NOTE | 2017-01-26 09:33 | PDOC ---
Infectious Disease Note Subjective Subjective feeling better, ready to go for rehab ROS ROS GEN: Denies fevers, chills, sweats HEENT: Denies blurred vision, sore throat CV: Denies chest pain RESP: Denies shortness of air, cough GI: Denies n/v/d NEURO: Denies confusion, dizziness MSK: Denies weakness, joint pain/swelling Vital Sign Vital Signs Vital Signs Date Time Temp Pulse Resp B/P Pulse Ox O2 Delivery O2 Flow Rate FiO2 01/26/17 09:06 96 142/69 01/26/17 08:00 Room Air 01/26/17 07:15 97.5 20 94 97.5 01/26/17 03:00 2.0 Physical Exam PHYSICAL EXAM GENERAL: NAD, Alert HEENT: PERRL, OC/OP NECK: Supple, no JVD, no LN LUNGS: Clear HEART: S1S2, no gallop, no murmur ABD: Soft, NT, no organomegaly, no rebound EXT: No edema, no cyanosis FAMILY DAY CARE PROVIDER: Alert, oriented x 3, no focal neurologic deficit SKIN: No rash IV: ok Labs Lab Laboratory Tests Test 01/25/17 21:05 01/26/17 02:48 Urine Color Yellow Urine Clarity Clear Urine pH 6.[address] Urine Protein Negativemg/dL (NEG-TRACE) Urine Glucose (UA) Negativemg/dL (NEG) Urine Ketones (Stick) Negativemg/dL (NEG) Urine Blood Negative (NEG) Urine Nitrite Negative (NEG) Urine Bilirubin Negative (NEG) Urine Urobilinogen Dipstick 0.2mg/dL (0.2 mg/dL) Urine Leukocyte Esterase Negative (NEG) Urine RBC 0/HPF (0-2) Urine WBC Occ/HPF (0-4) Urine Squamous Epithelial Cells Occ/LPF Urine Bacteria 0/HPF (0-FEW) Urine Mucus Slight/LPF White Blood Count 12.1x10^3/uL (4.0-11.0) Red Blood Count 3.37x10^6/uL (3.50-5.40) Hemoglobin 10.5g/dL (12.0-15.5) Hematocrit 32.7% (36.0-47.0) Mean Corpuscular Volume 97fL (79-100) Mean Corpuscular Hemoglobin 31pg (25-35) Mean Corpuscular Hemoglobin Concent 32g/dL (31-37) Red Cell Distribution Width 13.5% (11.5-14.5) Platelet Count 400x10^3/uL (140-400) Neutrophils (%) (Auto) 79% (31-73) Lymphocytes (%) (Auto) 8% (24-48) Monocytes (%) (Auto) 11% (0-9) Eosinophils (%) (Auto) 2% (0-3) Basophils (%) (Auto) 0% (0-3) Neutrophils # (Auto) 9.5x10^3uL (1.8-7.7) Lymphocytes # (Auto) 1.0x10^3/uL (1.0-4.8) Monocytes # (Auto) 1.4x10^3/uL (0.0-1.1) Eosinophils # (Auto) 0.2x10^3/uL (0.0-0.7) Basophils # (Auto) 0.0x10^3/uL (0.0-0.2) Sodium Level 141mmol/L (136-145) Potassium Level 5.1mmol/L (3.5-5.1) Chloride Level 104mmol/L (98-107) Carbon Dioxide Level 27mmol/L (21-32) Anion Gap 10 (6-14) Blood Urea Nitrogen 23mg/dL (7-20) Creatinine 1.6mg/dL (0.6-1.0) Estimated GFR (Cockcroft-Gault) 30.5 Glucose Level 135mg/dL (70-99) Calcium Level 10.2mg/dL (8.5-10.1) Phosphorus Level 4.4mg/dL (2.6-4.7) Magnesium Level 1.7mg/dL (1.8-2.4) Albumin 2.1g/dL (3.4-5.0) Micro culture neg Objective Assessment Pneumonia Parapneumonic effusion, empyema suspected -Pleural analysis: pH 6.8, glu 11, T protein 4.5, LDH 1268. cytology pending -s/p CT placement, 01/22. Leukocytosis, improved CKD Plan Plan of Care Continue Zosyn to change to po augmentin Monitor lab values f/u cultures/cytology Supportive care GABO HERNANDEZ MD Jan 26, 2017 09:33
[2017-01-26] MEDS ORDERED: DOCU-27 PO (10:05)
[2017-01-26] MEDS ORDERED: AMOX1TAB10 PO (10:05)
[2017-01-26] MEDS ORDERED: OXYC10TA32 PO (10:05)
[2017-01-26] MEDS ORDERED: LACT20SO PO (10:05)
[2017-01-26 10:20] VITALS: BP 139/65
[2017-01-26] MEDS ORDERED: AMOXICILLIN/K CLAV 500/125MG TABLET. PO SCH (10:30)
--- NOTE | 2017-01-26 11:49 | PDOC3 ---
Discharge Summary [facility] Date of Admission: Jan 22, 2017 Discharge Date: Jan 26, 2017 Admitting Diagnosis 1. RUL PNA, empyema s/p Chest tube, out 01/25 2. Atelectasis, trace pleural effusions bilateral 3. 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 YOAN on CK5,. 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 GERD, hx DVT - venous doppler are neg, vq low prob PE 7. Dyslipidemia 8. HTN - stable 9. Incidental left renal cyst 10. Hiatal hernia 11.Coronary calcifications 12. 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 constipation 14. generalized weakness plan: 1./ fu with ID, pulm, 2 on zosyn cont PTOT pleural effusion cx neg so far 3. cont home meds dvt ppx on stool softner may dc to SNF soon. History of Present Illness History of Present Illness chest tube out on 01/25 looks very weak mild cough with sputum constipation Vitals Vitals Vital Signs Date Time Temp Pulse Resp B/P Pulse Ox O2 Delivery O2 Flow Rate FiO2 01/25/17 10:42 97.5 90 19 129/57 97 Nasal Cannula 2.0 97.5 Physical Exam Problems: Final Diagnosis Problems Medical Problems: (1) CAP (community acquired pneumonia) Status: Acute CONSULTS pulm id Procedures chest tube Brief Hospital Course Ms. Hill is a 86 old F, was sent from [facility] for possible empyema. Pt got chest tube for 2 days, cx neg. Pt cough improves with iv abx , zosyn, now switch to augmentin. pt looks very weak, mild confusion, which is new to her. dc to rehab for PTOT, COnt augmentin for 1 week. has constipation, eventually got BM today. dc time 35min. General: No acute distress Heart: Regular rate Lungs: Clear Abdomen: Normal bowel sounds Extremities: No cyanosis, Normal pulses, Other (mild bilateral lower extremity edema) Skin: No rashes, No breakdown, No significant lesion Problems: Disposition REHAB CONDITION AT DISCHARGE: Improved Diet regular Scheduled Alprazolam (Xanax) 1 TAB PO BID (Reported) Amoxicillin/Potassium Clav (Amox Tr-K Clv 500-125 Mg Tab) 1 TAB PO BID Atorvastatin Calcium (Atorvastatin Calcium) 40 MG PO HS (Reported) Cyclobenzaprine Hcl (Cyclobenzaprine Hcl) 10 MG PO TID (Reported) Docusate Sodium (Docusate Sodium) 100 MG PO DAILY (Reported) Docusate Sodium (Colace) 100 MG PO BID Eprosartan Mesylate (Eprosartan Mesylate) 600 MG PO DAILY (Reported) Ezetimibe (Zetia) 10 MG PO DAILY (Reported) Ferrous Sulfate (Ferrous Sulfate) 1 TAB PO DAILY (Reported) Metoprolol Tartrate (Metoprolol Tartrate) 50 MG PO BID (Reported) Multivits,Ca,Minerals/Iron/FA (Thera M Plus Tablet) 1 EACH PO DAILY (Reported) Nifedipine (Nifedipine Er) 30 MG PO DAILY (Reported) Omeprazole (Omeprazole) 40 MG PO DAILY (Reported) Triamterene/Hydrochlorothiazid (Triamterene-Hctz 37.5-25 Mg Cp) 1 CAP PO DAILY ( Reported) Scheduled PRN Hydrocodone Bit/Acetaminophen (Hydrocodone-Apap 7.5-325 ) 1 TAB PO PRN Q4HRS PRN PRN PAIN (Reported) Lactulose (Lactulose) 20 GM PO PRN Q12HR PRN PRN CONSTIPATION Oxycodone Hcl (Oxycontin) 10 MG PO PRN BID PRN PRN pain Sennosides (Senokot) 8.6 MG PO PRN DAILY PRN PRN CONSTIPATION (Reported) Discontinued Medications Oxycodone Hcl (Oxycontin) 10 MG PO BID (Reported) Follow Up pcp in 2 weeks GUS SOLIS MD Jan 26, 2017 11:49
--- NOTE | 2017-01-26 14:20 | PATHOLOGY ---
CYTOPATHOLOGY REPORT CLINICAL HISTORY: Right empyema. SPECIMEN(S) RECEIVED: A.Pleural fluid, Right FINAL DIAGNOSIS: Right pleural fluid, ThinPrep and cell block: - No malignant cells identified. Degenerating mesothelial cells, inflammatory cells and red blood cells identified. (JPM:csd; d/t: 01/26/2017) PATHOLOGIST: Ulysses Dick M.D. REPORT ELECTRONICALLY SIGNED BY: Ulysses Dick M.D. DATE/TIME: 01/26/2017 14:19 GROSS PATHOLOGY: A. Pleural fluid, Right: The specimen is submitted fixed, labeled "Mary Hill". Received by the Cytology Department is 20 mL of cloudy orange red fluid. One ThinPrep slide and a cell block were prepared. (clt 01.25.2017) COAGULATING DRYING SUPERVISOR(S): EMANUEL Gorman(ASCP) INITIAL CPT CODE(S): A; 22399, 70698 Professional services performed [place] [facility] [place] [address] Technical services performed by [facility] at [address] [place] [address], [address], [place] [address]. PATIENT: MARY HILL /AGE: 11 1930 (Age: 86) SEX: F PATIENT #: [id number] ALT CASE #: SPECIMEN COLLECTION DATE: 01/22/2017 SPECIMEN RECEIVED DATE: 01/25/[address] [facility] [address] [place] [address], [address] [place] [address] PHONE: [phone] DIRECTOR: Los Martinez M.D. * * * END OF REPORT * * *
[2017-01-26 14:25] VITALS: BP 155/73
--- NOTE | 2017-01-26 15:17 | RAD ---
PROCEDURE CT-guided right chest tube placement and chemical fibrinolysis HISTORY Elderly female with right pleural empyema TECHNIQUE AND FINDINGS Following informed consent, the patient was prepped and draped in the usual sterile fashion. Preliminary CT scan of the area of interest was performed. 1 percent lidocaine was used to achieve local anesthesia over the area of interest. A small dermatotomy was made. Under periodic CT surveillance, an 18 gauge Seldinger needle was advanced into the pleural space and serous fluid was aspirated. The needle was then exchanged over wire for serial dilators followed by 14 Malay pigtail drainage catheter. No significant aspirate was achieved likely due to markedly high viscosity of the underlying fluid. CT scan confirmed good position of the catheter within the loculated pleural fluid collection. Chemical fiber lysis was then performed. 5 milligrams tPA mixed in a volume of 50 cc was then instilled through the catheter and the catheter was capped. The catheter was then sutured to the skin. The patient was transferred to the floor and will be placed Pleur-Evac drainage after 30 minutes of tPA dwell time. DOSE REDUCTION The use of interval reconstruction technique was utilized for this examination. IMPRESSION 1. CT-guided right chest tube placement as described. 2. Chemical fiber lysis of the right pleural empyema as described. Electronically signed by: Jack Meza MD (Jan 26, 2017 15:16:23)
--- NOTE | 2017-01-26 16:04 | RAD ---
EXAM: Abdomen one view. HISTORY: Constipation. COMPARISON: 06/27/2012. FINDINGS: A frontal view of the abdomen is obtained. There are no distended small bowel loops. There is gas distally. The amount of stool is not clearly abnormal increased. There are surgical clips throughout the left hemipelvis. An inferior vena cava filter is noted. There are moderate degenerative changes of the lumbar spine with laminectomy changes at L3 and L4. There is a focal mild dextroscoliosis at L1-2. IMPRESSION: 1. No clear constipation or evidence of obstruction.
== END 2017-01-26 19:00 | DRG 177 ==
LOC: 5 NORTH 10:39
PROVIDERS: ADMIT Internal Medicine; ATTEND Internal Medicine
PROC: 0W9930Z Drainage of Right Pleural Cavity with Drainage Device, Percutaneous Approach (ICD-10-PCS; principal; 2017-01-22)
PROC: 3E03317 Introduction of Other Thrombolytic into Peripheral Vein, Percutaneous Approach (ICD-10-PCS; 2017-01-22)
PROC: 0BP1XDZ Removal of Intraluminal Device from Trachea, External Approach (ICD-10-PCS; 2017-01-25)
DX: J86.9 Pyothorax without fistula (principal); J18.9 Pneumonia, unspecified organism; E43 Unspecified severe protein-calorie malnutrition; J90 Pleural effusion, not elsewhere classified; N17.9 Acute kidney failure, unspecified; N18.4 Chronic kidney disease, stage 4 (severe); E78.5 Hyperlipidemia, unspecified; E87.5 Hyperkalemia; E78.00 Pure hypercholesterolemia, unspecified; I25.10 Atherosclerotic heart disease of native coronary artery without angina pectoris; D64.9 Anemia, unspecified; I12.9 Hypertensive chronic kidney disease with stage 1 through stage 4 chronic kidney disease, or unspecified chronic kidney disease; N28.1 Cyst of kidney, acquired; I48.0 Paroxysmal atrial fibrillation; K21.9 Gastro-esophageal reflux disease without esophagitis; K44.9 Diaphragmatic hernia without obstruction or gangrene; Z96.653 Presence of artificial knee joint, bilateral; M19.90 Unspecified osteoarthritis, unspecified site; M54.9 Dorsalgia, unspecified; K59.00 Constipation, unspecified; Z82.49 Family history of ischemic heart disease and other diseases of the circulatory system; Z85.42 Personal history of malignant neoplasm of other parts of uterus; Z85.3 Personal history of malignant neoplasm of breast; Z86.718 Personal history of other venous thrombosis and embolism; Z90.49 Acquired absence of other specified parts of digestive tract; Z90.710 Acquired absence of both cervix and uterus; Z88.1 Allergy status to other antibiotic agents; Z68.29 Body mass index [BMI] 29.0-29.9, adult
CPT/HCPCS: 32557; 36415; 71010; 74000; 76770; 80048; 80069; 81001; 82040; 82728; 82945; 82947; 83540; 83550; 83615; 83735; 83986; 84100; 84157; 85027; 85045; 85610; 87071; 87075; 87205; 88112; 88305; 93005; A4215; C1729; C1892; J2250; J2270; J2405; J2543; J2997; J3010; J7060; 97530; 97535

== ENCOUNTER → 2018-06-21 | Day surgery (SDC) | payer MEDICARE, BC ==
[~2018-06-21] MED LIST: ALLO100T PO; ALPR0.25 PO; AMOX1TAB10 PO; ATOR40TA59 PO; CYCL10TA2 PO; DOCU-109 PO; DOCU100T5 PO; EZET10TA18 PO; FERR325T14 PO; HYDR-2762 PO; IV RINGERS,LACTATED 1000ML 1,000 ML IV SCH; LACT20SO PO; LIDOCAINE 1% PF 2 ML VIAL. ID PRN; METO50TA6 PO; MORPHINE SULFATE 2 MG/ML VIAL. IV PRN; MULT-638 PO; NIFE30TA15 PO; OMEP40CA5 PO; ONDANSETRON PF 4 MG/2 ML VIAL. IV PRN; OXYC10TA45 PO; PROCHLORPERAZINE 10 MG/2 ML VIAL. IV PRN; PROPOFOL 20 ML IV ONE; SENN8.6T99 PO; TRIA1CAP3 PO; [UNRECOGNIZED DRUG - CODE] PO; fentaNYL PF VIAL 100 MCG/2 ML VIAL IV PRN
--- NOTE | 2018-06-21 09:52 | PDOC1 ---
HISTORY & PHYSICAL H&P Mary Hill [id number] 1930 06/07/2018 02:30 PM 11/22 [facility], [facility] [address] [place] [id number] Ph. [phone] Patient: Mary Hill Date of : 1930 Date: 06/07/2018 2:30 PM Visit Type: Consult This 87 year old female presents for GI bleeding. History of Present Illness: 1. 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 Had done twice. Has recent heme positive stool and has some drop in hgb. INTAKE COMMENTS: Intake Comments: patient states she is here for a stomach scope PAST MEDICAL/SURGICAL HISTORY (Detailed) Disease/disorder Onset Date Management Date Comments Hysterectomy, total Knee replacement Cancer, breast Diabetes mellitus Hypertension REVIEW OF SYSTEMS System Neg/Pos Details Constitutional Negative Chills, fever and malaise. ENMT Negative Sore throat. Eyes Negative Double vision. Respiratory Negative Dyspnea and wheezing. Cardio Negative Chest pain and irregular heartbeat/palpitations. GI Positive See HPI. GI Negative See HPI. Negative Dysuria and hematuria. Endocrine Negative Cold intolerance and heat intolerance. Psych Negative Anxiety. Integumentary Negative Hives and rash. MS Negative Joint pain. Freddy/Lymph Negative Easy bleeding and easy bruising. Allergic/Immuno Negative Food allergies. VITAL SIGNS Time BP mm/Hg Pulse /min Resp /min Temp F Ht ft Ht in Ht cm Wt lb Wt kg BMI kg/ m2 BSA m2 O2 Sat% 2:54 PM 116/60 63 12 97.4 63.00 160.02 131.00 59.421 23.21 1.63 94 MEASURED BY Time Measured by 2:54 PM Celia Swygert PHYSICAL EXAM: Exam Findings Details Constitutional Normal Well developed. Eyes Normal Conjunctiva - Right: Normal, Left: Normal. Sclera - Right: Normal, Left: Normal. Nasopharynx Normal Lips/teeth/gums - Normal. Neck Exam Normal Inspection - Normal. Thyroid gland - Normal. Respiratory Normal Inspection - Normal. Auscultation - Normal. Cardiovascular Normal Regular rate and rhythm. No murmurs, gallops, or rubs. Abdomen Normal Inspection - Normal. Anterior palpation - No guarding. No abdominal tenderness. No hepatic enlargement. No splenic enlargement. No hernia. No Ascites. Skin Normal Inspection - Normal. Extremity Normal No edema. Psychiatric Normal Oriented to time, place, person, and situation. Appropriate mood and effect. Assessment/Plan # Detail Type Description 1. Assessment Gastrointestinal hemorrhage, unspecified gastrointestinal hemorrhage type (K92.2). Patient Plan Await EGD 2. 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 Patient Plan Schedule EGD at [facility]. Make sure that [facility] has argon coagulation cautery. Plan Orders Further diagnostic evaluations ordered today include(s) EGD to be performed today. She is to schedule a follow-up visit with Ishan Sierra MD upon completion of work-up Electronically signed by: Ishan Sierra MD 06/07/2018 04:43 PM Document generated by: Ishan Sierra 06/07/2018 04:43 PM Anita Castellon MD, [facility]; Dany Yoo MD Internal Medicine; Ahsan Blakely MD, Internal Medicine; Fransisco Sierra MD Internal Medicine; Ishan Sierra MD, Gastroenterology; Cortez Knowles MD, Rheumatology, J. Coral SHARPN ------ 06/21/18 Patient seen and examined. No change in H&P. ISHAN SIERRA MD Jun 21, 2018 09:51
[2018-06-21 11:17] VITALS: BP 145/73
== END | disposition home or self-care (01) ==
LOC: ENDOS 09:28
PROVIDERS: ATTEND Internal Medicine Gastroenterology
DX: K92.2 Gastrointestinal hemorrhage, unspecified (principal); K44.9 Diaphragmatic hernia without obstruction or gangrene; K31.89 Other diseases of stomach and duodenum; E11.9 Type 2 diabetes mellitus without complications; I10 Essential (primary) hypertension; Z90.710 Acquired absence of both cervix and uterus; Z96.659 Presence of unspecified artificial knee joint; Z85.3 Personal history of malignant neoplasm of breast; Z79.899 Other long term (current) drug therapy
CPT/HCPCS: 43255; J2704

== ENCOUNTER 2019-07-31 07:04 | Outpatient (CLI) | payer MEDICARE, BC ==
[2019-07-31] VITALS (10 sets, daily range): BP systolic 130–176; BP diastolic 64–83
[~2019-07-31] VITALS: Ht 157.5 cm; Wt 65.8 kg
[~2019-07-31 07:04] MED LIST changes: -EZET10TA18 PO; +EZET10TA20 PO; -HYDR-2762 PO; +HYDR-2765 PO; -IV RINGERS,LACTATED 1000ML 1,000 ML IV SCH; -LIDOCAINE 1% PF 2 ML VIAL. ID PRN; -MORPHINE SULFATE 2 MG/ML VIAL. IV PRN; -ONDANSETRON PF 4 MG/2 ML VIAL. IV PRN; -OXYC10TA45 PO; +OXYC10TA46 PO; -PROCHLORPERAZINE 10 MG/2 ML VIAL. IV PRN; -PROPOFOL 20 ML IV ONE; -fentaNYL PF VIAL 100 MCG/2 ML VIAL IV PRN
[2019-07-31 07:49] LABS: CALCIUM 9.9 mg/dL (8.5-10.1); CREATININE 1.3 mg/dL (0.6-1.0); GFR 38.6; POTASSIUM 4.3 mmol/L (3.5-5.1)
[2019-07-31] MEDS ORDERED: IODIXANOL 320 MG/ML 100 ML VIAL. ONE ×2 (07:52→07:59)
[2019-07-31] MEDS ORDERED: LIDOCAINE 1% Multi-Dose 20 ML VIAL. ONE (07:52)
[2019-07-31] MEDS ORDERED: IRBE300T3 PO (08:05)
[2019-07-31 08:10] LABS: HEMATOCRIT 37.7 % (36.0-47.0); HEMOGLOBIN 12.8 g/dL (12.0-15.5); RED BLOOD COUNT 3.89 x10^6/uL (3.50-5.40); RED CELL DISTRIBUTION WIDTH 13.9 % (11.5-14.5); WHITE BLOOD COUNT 5.5 x10^3/uL (4.0-11.0)
[2019-07-31] MEDS ORDERED: UBID1CAP41 PO (08:22)
[2019-07-31] MEDS ORDERED: IRBE150T3 PO (08:22)
[2019-07-31] MEDS ORDERED: ALEN5TAB3 PO (08:22)
[2019-07-31] MEDS ORDERED: OMEP20CA10 PO (08:22)
[2019-07-31] MEDS ORDERED: vitamin b12 PO (08:22)
[2019-07-31] MEDS ORDERED: OXYC1TAB19 PO (08:22)
[2019-07-31] MEDS ORDERED: ATOR20TA58 PO (08:22)
[2019-07-31] MEDS ORDERED: CHOL100014 PO (08:22)
[2019-07-31 08:24] LABS: PROTHROMBIN TIME PATIENT 12.9 SEC (11.7-14.0)
[2019-07-31] MEDS ORDERED: HEPARIN for IV BOLUS 10,000 UNIT/10 ML VIAL. ONE (09:02)
[2019-07-31] MEDS ORDERED: fentaNYL PF VIAL 100 MCG/2 ML VIAL ONE (09:02)
[2019-07-31] MEDS ORDERED: MIDAZOLAM HCL/PF 2 MG/2 ML VIAL. ONE (09:02)
[2019-07-31] MEDS ORDERED: IODIXANOL 320 MG/ML 100 ML VIAL. IART ONE (09:30)
[2019-07-31] MEDS ORDERED: fentaNYL PF VIAL 100 MCG/2 ML VIAL IV ONE (09:30)
[2019-07-31] MEDS ORDERED: MIDAZOLAM HCL/PF 2 MG/2 ML VIAL. IV ONE (09:30)
[2019-07-31] MEDS ORDERED: LIDOCAINE 1% Multi-Dose 20 ML VIAL. INJ ONE (09:30)
[2019-07-31] MEDS ORDERED: IV 1/2 NORMAL SALINE 1,000 ML IV SCH (09:41)
--- NOTE | 2019-07-31 09:41 | PDOC ---
MODERATE SEDATION ASSESSMENT RISKS/ALTERNATIVES Risks/Alternatives Risks and alternatives of this type of sedation and procedure discussed with: RISK/ALTERNATIVES: Patient H & P ON CHART H & P H & P on chart and reviewed for co-morbid conditions and appropriate labs. H&P ON CHART: Yes STATUS PREG STATUS ASSESSED: N/A MEDS/ALLERGIES REVIEWED Meds/Allergies Reviewed Medications and Allergies including time and route of recently administered narcotics and sedatives. MEDS/ALLERGIES REVIEWED: Yes ASA RATING ASA RATING: II AIRWAY ASSESSMENT Airway Assessment Airway patency, oral function limitations, presence of caps, crowns, dentures, partials, and ability to extend neck assessed. AIRWAY ASSESSMENT: Yes MALLAMPATI SCORE MALLAMPATI SCORE: II PRE-SEDATION ASSESSMENT PRE-SEDATION ASSESSMENT: Yes FUNMI NEWBY MD Jul 31, 2019 09:41
[2019-07-31] MEDS ORDERED: ACETAMINOPHEN 325 MG TABLET. PO PRN (09:45)
--- NOTE | 2019-07-31 09:53 | CARD ---
MR#: [id number] Date of Study: 07/31/2019 Ordering Physician: FUNMI MILLER, Referring Physician: Lena HIDALGO: Esthela Chambers APPROVED REPORT Patient StatusOUT-PATIENT Mobile Application Tester: Esthela Chambers Procedure(s) performed: Aortogram with bilateral lower extremity runoff fl time: 2.7 mins dose: 32 gy/cm2 contrast: 65 ml moderate sedation: 22 mins INDICATION FOR PROCEDURE The indication(s) include : Claudication and abnormal arterial duplex scan. PROCEDURE NARRATIVE After explaining the risks, benefits and alternative options, informed consent was obtained from andreia ent. Patient was brought to the cardiac [facility] and her left groin was prepped and draped in the usu al fashion. 20 mL of 2% lidocaine was infiltrated into the skin and subcutaneous tissues for local an esthesia. Arterial access was obtained in the left common femoral artery and a 5 Macedonian sheath was in serted. 5 Macedonian pigtail catheter was positioned in the descending aorta and aortogram with bilateral lower extremity runoff was performed. Patient tolerated the procedure well. Hemostasis was achieved using mynx closure device. There were no immediate complications. FINDINGS 1. Atherosclerotic plaque with a areas of ulceration seen in the distal descending aorta. There is a bout 30% stenosis noted. 2. No significant stenosis in bilateral common and external iliac arteries. 3. No significant stenosis in bilateral common femoral arteries. 4. The right superficial femoral artery showed 40% stenosis in the distal segment. The left superfic ial femoral artery did not show any significant stenosis. 5. Bilateral popliteal arteries were not well visualized due to patient's knee replacements but ther e was good flow noted distally ruling out any significant stenosis. 6. There is three-vessel runoff below the knee and right lower extremity. The left lower extremity s howed good two-vessel runoff below the knee. The left anterior tibial artery showed 90% proximal segm ent stenosis. 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 No significant lesions needing intervention were noted. Recommendations Vascular risk factor modification and regular exercise regimen. Signed by : Funmi Miller, Electronically Approved : 07/31/2019 09:52:59
== END 2019-07-31 13:15 | disposition home or self-care (01) ==
LOC: CCL 07:04
PROVIDERS: ATTEND Internal Medicine Cardiovascular Disease
DX: I70.212 Atherosclerosis of native arteries of extremities with intermittent claudication, left leg (principal); I10 Essential (primary) hypertension; E78.5 Hyperlipidemia, unspecified; Z85.3 Personal history of malignant neoplasm of breast; Z79.899 Other long term (current) drug therapy; Z98.890 Other specified postprocedural states; Z90.710 Acquired absence of both cervix and uterus; Z90.49 Acquired absence of other specified parts of digestive tract; Z96.653 Presence of artificial knee joint, bilateral; Z88.8 Allergy status to other drugs, medicaments and biological substances
CPT/HCPCS: 36200; 36415; 75630; 80048; 85027; 85610; 99152; C1713; C1769; C1892; J1644; J2250; J3010; Q9967; 36245; 75625; 75716; G0269